=== PATIENT | female | born 1980 | race Caucasian/White ===

== ENCOUNTER 2018-02-18 08:15 | Outpatient (RCR) | payer OTHER, MEDICAID, SELFPAY ==
--- NOTE | 2018-01-21 17:53 | PT.OIE ---
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 positive (Chronic 02/2017) Past Surgical History (Last Updated 12/09/17 @ 13:32 by Graciela Demarco LPN) Hx of cervical biopsy (Resolved 2015) Hx of tonsillectomy (Resolved ~1984) Provider Visit Care Team Role Provider Type Deb Ledesma PA-C Attending Provider Advanced Transfer Driver Family Provider Primary Care Provider Specialty: Medical Address: [address] [place] [address], [facility] Email: [email or web address] Physical Therapy Initial Evaluation PT-OP-A Visit Information Start: 01/19/18 07:10 Freq: Status: Active Protocol: Document 01/19/18 08:15 AMB (Rec: 01/19/18 09:40 AMB [email or web address]) Out-Patient Physical Therapy Visit Information Visit Information Visit Type Initial Evaluation Visit Start Time 08:15 Visit Stop Time 09:00 Total Visit Minutes 45 Visit Number 1 Evaluation Information Evaluation Date 01/19/18 PT-OP-B Current Condition Start: 01/19/18 07:10 Freq: Status: Active Protocol: Document 01/19/18 08:15 AMB (Rec: 01/19/18 08:27 AMB [id number]) Current Condition History of Current Condition History of Current Condition The patient reports she was lifting railroad ties and while she didn't feel pain while lifting, she sat down afterwards and developed posterior right low back/hip radiating pain into the leg. History of R knee pain. Walking downhill is the worst, standing irritates it. Lying down helps. 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 Prior Treatments and Tests PCP exercises seems to help. 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 PT-OP-C Subjective Start: 01/19/18 07:10 Freq: Status: Active Protocol: Document 01/19/18 08:15 AMB (Rec: 01/19/18 09:40 AMB [email or web address]) OP-PT Subjective Patient Comments Patient Comments Worst with walking, standing, shoveling Patient Reported Progress Worse Patient Questionnaires Lower Extremity Functional Scale LEFS Score 59 LEFS Impairment 20 to 39% Impaired (Score 48- 62) OP-PT Pain Assessment Pain Assessment Grid Paper Pain Assessment Grid Completed Yes Location Right Hip Pain Location Details posterior lumbar/SI going down leg Intensity 8 Scale Used Numeric (1 - 10) Description Sharp PT-OP-J Posture/Palpation/Skin Start: 01/19/18 07:10 Freq: Status: Active Protocol: Document 01/19/18 08:15 AMB (Rec: 01/20/18 11:17 AMB [email or web address]) Posture Evaluation Comments Posture Comments Supine: L ASIS appears high. Standing: pt stands with excessive lumbar lordosis. Palpation Assessment Location One Palpation Location R posterior hip Palpation Findings Soft Tissue Tightness Muscle Guarding Tenderness Palpation Details Tightness throughout R piriformis, R lumbar paraspinals PT-OP-K Range of Motion Start: 01/19/18 07:10 Freq: Status: Active Protocol: Document 01/19/18 08:15 AMB (Rec: 01/20/18 11:22 AMB [id number]) Lumbar Spine Range of Motion Lumbar Spine Active Percentage Testing Position standing Flexion 80 Extension 75 Lateral Flexion Left 75 Lateral Flexion Right 75 Comments pain with forward flexion PT-OP-L Special Tests Start: 01/19/18 07:10 Freq: Status: Active Protocol: Document 01/19/18 08:15 AMB (Rec: 01/20/18 11:15 AMB [email or web address]) Special Tests Lumbar Spine Special Tests Compression Test Results negative Manual Traction Test Results decreases pain Stork Test Test Results decreased motion, but no increase in pain Slump Test Results positive for increased pain PT-OP-M Strength Start: 01/19/18 07:10 Freq: Status: Active Protocol: Document 01/19/18 08:15 AMB (Rec: 01/21/18 15:39 AMB [id number]) Hip Strength Hip Manual Muscle Testing Right Flexion (L2) 4+ Good+ Extension (S1) 5 Normal Abduction 4+ Good+ External Rotation 4- Good- Left Flexion (L2) 4+ Good+ Extension (S1) 5 Normal Abduction 5 Normal External Rotation 4+ Good+ PT-OP-Q Treatments Start: 01/19/18 07:10 Freq: Status: Active Protocol: Document 01/19/18 08:15 AMB (Rec: 01/20/18 10:46 AMB [id number]) Therapeutic Exercises Supine Exercises 3 Supine Exercise Name isometric hip flexion at 90 hip flex Reps/Minutes 5x5 2 Supine Exercise Name active hamstring stretch Reps/Minutes 5x10 1 Supine Exercise Name piriformis stretch Reps/Minutes 30x2 Prone Exercises 1 Prone Exercise Name quadruped 4 way hip stretch Reps/Minutes 30x2 PT-OP-T Assessment and Plan Start: 01/19/18 07:10 Freq: Status: Active Protocol: Document 01/19/18 08:15 AMB (Rec: 01/21/18 07:30 AMB [email or web address]) Physical Therapy Assessment Rehab Potential Rehabilitation Potential Good Evaluation Complexity Number of Personal Factors/Comorbidities 1-2 Number of Body Systems Impaired 4 or More Clinical Presentation at Evaluation Evolving Impairments Impairments Functional Activities Pain ROM Strength Goals Three Impairment Strength Short Term Goal (STG) The patient will show 5/5 strength throughout her LEs. STG Duration 5 weeks Work Ticket Distributor Goal (LTG) The patient will be independent with a home exercise program. 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 STG Duration 5 weeks Work Ticket Distributor Goal (LTG) The patient will walk/hike for 1 hour with pain of 4/10 or less. LTG Duration 10 weeks One Impairment Lifting/ yardwork Short Term Goal (STG) The patient will perform a squat with good body mechanics to lift 20 pounds from the ground to waist height without an increase in baseline pain. STG Duration 5 weeks Detention Goal (LTG) The patient will shovel for 30 minutes without an increase in baseline pain with good body mechanics. LTG Duration 10 weeks Assessment Summary Assessment The patient presents to physical therapy with right posterior hip pain that radiates down her posterior leg after lifting rail road ties. She presents with tightness and weakness in her right hip external rotators dysfunction at SI joint and low lumbar R>L. She will benefit from PT to establish a pain relief program that she can be independent with, per her request. 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
--- NOTE | 2018-01-21 17:53 | PT.OPPOC ---
Current Diagnoses Sacroiliitis, not elsewhere classified (01/19/18) Lumbago with sciatica, right side (01/19/18) Provider Visit Care Team Role Provider Type Deb Ledesma PA-C Attending Provider Advanced Paper Products Supervisor Family Provider Primary Care Provider Specialty: Medical Address: [address] [place] [address], [id number] Email: [email or web address] Plan Of Care PT-OP-T Assessment and Plan Start: 01/19/18 07:10 Freq: Status: Active Protocol: Document 01/19/18 08:15 AMB (Rec: 01/21/18 07:30 AMB [email or web address]) Physical Therapy Assessment Rehab Potential Rehabilitation Potential Good Evaluation Complexity Number of Personal Factors/Comorbidities 1-2 Number of Body Systems Impaired 4 or More Clinical Presentation at Evaluation Evolving Impairments Impairments Functional Activities Pain ROM Strength Goals Three Impairment Strength Short Term Goal (STG) The patient will show 5/5 strength throughout her LEs. STG Duration 5 weeks Loss Prevention Representative Goal (LTG) The patient will be independent with a home exercise program. 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 STG Duration 5 weeks Loss Prevention Representative Goal (LTG) The patient will walk/hike for 1 hour with pain of 4/10 or less. LTG Duration 10 weeks One Impairment Lifting/ yardwork Short Term Goal (STG) The patient will perform a squat with good body mechanics to lift 20 pounds from the ground to waist height without an increase in baseline pain. STG Duration 5 weeks Detention Goal (LTG) The patient will shovel for 30 minutes without an increase in baseline pain with good body mechanics. LTG Duration 10 weeks Assessment Summary Assessment The patient presents to physical therapy with right posterior hip pain that radiates down her posterior leg after lifting rail road ties. She presents with tightness and weakness in her right hip external rotators dysfunction at SI joint and low lumbar R>L. She will benefit from PT to establish a pain relief program that she can be independent with, per her request. 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 Physician Signature Date Printed Name and Credentials Clinical Instructor Signature Printed Name and Credentials
--- NOTE | 2018-02-18 11:46 | PT.OTN ---
Current Diagnoses Sacroiliitis, not elsewhere classified (02/18/18) Physical Therapy Treatment Note PT-OP-A Visit Information Start: 01/19/18 07:10 Freq: Status: Active Protocol: Document 02/18/18 08:15 AMB (Rec: 02/18/18 09:00 AMB [email or web address]) Out-Patient Physical Therapy Visit Information Visit Information Visit Type Treatment Note Visit Start Time 08:15 Visit Stop Time 09:00 Total Visit Minutes 45 Visit Number 2 Evaluation Information Evaluation Date 01/19/18 PT-OP-B Current Condition Start: 01/19/18 07:10 Freq: Status: Active Protocol: Document 01/19/18 08:15 AMB (Rec: 01/19/18 08:27 AMB [id number]) Current Condition History of Current Condition History of Current Condition The patient reports she was lifting railroad ties and while she didn't feel pain while lifting, she sat down afterwards and developed posterior right low back/hip radiating pain into the leg. History of R knee pain. Walking downhill is the worst, standing irritates it. Lying down helps. 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 Prior Treatments and Tests PCP exercises seems to help. 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 Standing: pt stands with excessive lumbar lordosis. Palpation Assessment Location One Palpation Location R posterior hip Palpation Findings Soft Tissue Tightness Muscle Guarding Tenderness Palpation Details Tightness throughout R piriformis, R lumbar paraspinals PT-OP-K Range of Motion Start: 01/19/18 07:10 Freq: Status: Active Protocol: Document 01/19/18 08:15 AMB (Rec: 01/20/18 11:22 AMB [id number]) Lumbar Spine Range of Motion Lumbar Spine Active Percentage Testing Position standing Flexion 80 Extension 75 Lateral Flexion Left 75 Lateral Flexion Right 75 Comments pain with forward flexion PT-OP-L Special Tests Start: 01/19/18 07:10 Freq: Status: Active Protocol: Document 01/19/18 08:15 AMB (Rec: 01/20/18 11:15 AMB [email or web address]) Special Tests Lumbar Spine Special Tests Compression Test Results negative Manual Traction Test Results decreases pain Stork Test Test Results decreased motion, but no increase in pain Slump Test Results positive for increased pain PT-OP-M Strength Start: 01/19/18 07:10 Freq: Status: Active Protocol: Document 01/19/18 08:15 AMB (Rec: 01/21/18 15:39 AMB [id number]) Hip Strength Hip Manual Muscle Testing Right Flexion (L2) 4+ Good+ Extension (S1) 5 Normal Abduction 4+ Good+ External Rotation 4- Good- Left Flexion (L2) 4+ Good+ Extension (S1) 5 Normal Abduction 5 Normal External Rotation 4+ Good+ PT-OP-Q Treatments Start: 01/19/18 07:10 Freq: Status: Active Protocol: Document 02/18/18 08:15 AMB (Rec: 02/18/18 11:28 AMB [email or web address]) Therapeutic Exercises Supine Exercises 2 Supine Exercise Name active hamstring stretch Reps/Minutes 5x10 1 Supine Exercise Name piriformis stretch Reps/Minutes 30x2 Sidelying Exercises 2 Sidelying Exercise Name hip abd Reps/Minutes 1x10 1 Sidelying Exercise Name clam Reps/Minutes 2x10 Sitting Exercises 1 Sitting Exercise Name sitting march Reps/Minutes 10 Comments vc for trunk stability Standing Exercises 1 Standing Exercise Name calf stretch Reps/Minutes 30x2 Therapeutic Activity Therapeutic Activity 1 Name squat technique vs bending to pull weeds Comments avoiding bend lift twist PT-OP-T Assessment and Plan Start: 01/19/18 07:10 Freq: Status: Active Protocol: Document 02/18/18 08:15 AMB (Rec: 02/18/18 11:46 AMB [email or web address]) Physical Therapy Assessment Assessment Summary Assessment Pt tolerating more activity, but continues to have radiating leg pain down the right leg. Encouraged her in core stability, avoiding activities that cause nerve pain. Physical Therapy Plan Next Visit Focus/Plan Next Note Type Treatment Note Next Visit Plan Pt having a difficult time coming to PT due to work schedule, so scheduled out for 3 weeks. Progress HEP at that time
--- NOTE | 2018-04-08 10:48 | PT.OPDS ---
Current Diagnoses Sacroiliitis, not elsewhere classified (02/18/18) Provider Visit Care Team Role Provider Type Deb Ledesma PA-C Attending Provider Advanced Furniture Assembly Supervisor Family Provider Primary Care Provider Specialty: Medical Address: [address] [place] [address], [id number] Email: [email or web address] Visit Number Visit Number 2 Discharge Summary PT-OP-B Current Condition Start: 01/19/18 07:10 Freq: Status: Active Protocol: Document 01/19/18 08:15 AMB (Rec: 01/19/18 08:27 AMB [id number]) Current Condition History of Current Condition History of Current Condition The patient reports she was lifting railroad ties and while she didn't feel pain while lifting, she sat down afterwards and developed posterior right low back/hip radiating pain into the leg. History of R knee pain. Walking downhill is the worst, standing irritates it. Lying down helps. 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 Prior Treatments and Tests PCP exercises seems to help. 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 Standing: pt stands with excessive lumbar lordosis. Palpation Assessment Location One Palpation Location R posterior hip Palpation Findings Soft Tissue Tightness Muscle Guarding Tenderness Palpation Details Tightness throughout R piriformis, R lumbar paraspinals PT-OP-T Assessment and Plan Start: 01/19/18 07:10 Freq: Status: Active Protocol: Document 04/08/18 10:46 AMB (Rec: 04/08/18 10:48 AMB [email or web address]) Physical Therapy Plan Discharge Physical Therapy Discharge Reasons No Longer Attending PT Discharge Comments The patient attended 2 visits including initial evaluation, she cancelled 2 appointments, and no showed 2. She has not returned a voicemail to schedule more appointments. At her last visit she was improving, but was having difficulty attending due to her work schedule. She is now discharged due to poor attendance and would need a new referral to return.
== END 2018-02-19 11:12 ==
LOC: PHYS 08:15
PROVIDERS: Family Provider Physician Assistant; PCP Physician Assistant; Visit Provider Physician Assistant
DX: M46.1 Sacroiliitis, not elsewhere classified (principal)
CPT/HCPCS: 97110; 97162; 97530

== ENCOUNTER → 2018-07-30 11:23 | Outpatient (CLI) | payer OTHER, MEDICAID, SELFPAY ==
--- NOTE | 2018-07-30 11:25 | DI.RAD.S_ITS ---
PROCEDURE: XR KNEE LT 3V INDICATIONS: Left knee pain; do one weight bearing view TECHNIQUE: 3 views of the knee were acquired. COMPARISON: [facility], , KNEE 3V RIGHT, 04/23/2017, 9:01. [facility], , KNEE 3V LEFT, 04/12/2015, 9:43. FINDINGS: Bones: No fractures or dislocations. No suspicious bony lesions. Soft tissues: No joint effusion. No suspicious soft tissue calcifications. IMPRESSION: Normal for age. Dictated by: Gianni Kang M.D. on 07/30/2018 at 12:19 Approved by: Gianni Kang M.D. on 07/30/2018 at 12:20
[2018-07-30 12:23] LABS: Add Manual Diff / Slide Review NO; Basophils Absolute Auto 0 /uL (0-100); Basophils Percent Auto 0.4 % (0-2); Eosinophils Absolute Auto 0 /uL (0-450); Eosinophils Percent Auto 0.6 % (2-4); Hematocrit 41.4 % (36-46); Hemoglobin 13.8 g/dL (12.0-16.0); Lymphocytes Absolute Auto 2500 /uL (1100-4500); Lymphocytes Percent Auto 35.9 % (25-40); Mean Corpuscular HGB Conc 33.4 % (30-36); Mean Corpuscular Hemoglobin 31.7 PG (26-34); Monocytes Absolute Auto 700 /uL (0-900); Monocytes Percent Auto 9.9 % (3-14); Neutrophils Absolute Auto 3600 /uL (1500-7000); Neutrophils Percent Auto 53.2 % (50-75); Platelet Count 179 X10^3/uL (150-400); Red Blood Cell Count 4.36 X10^6/uL (4.0-5.2); Red Cell Distribution Width 13.4 % (11.6-14.8); White Blood Cell Count 6.9 X10^3/uL (4.5-11.0)
[2018-07-30 12:38] LABS: Erythrocyte Sedimentation Rate 7 MM/HR (0-20)
[2018-07-30 12:45] LABS: HEMOLYSIS < 15 (0-50); Iron 103 ug/dL (37-170)
[2018-07-30 12:47] LABS: Alanine Aminotransferase 43 IU/L (9-52); Albumin 4.2 g/dL (3.5-5.0); Albumin Globulin Ratio 1.6 (1.0-2.8); Alkaline Phosphatase 59 U/L (38-126); Aspartate Aminotransferase 32 IU/L (14-36); BUN Creatinine Ratio 21.7 (6-22); Bilirubin Total 0.4 mg/dL (0.2-1.3); Blood Urea Nitrogen 13 mg/dL (7-17); Carbon Dioxide 26 mmol/L (22-32); Chloride 103 mmol/L (98-107); Estimated Glomerular Filt Rate > 60.0 mL/min (>60); Globulin 2.6 g/dL (1.7-4.1); Glucose 91 mg/dL (70-100); HEMOLYSIS < 15 (0-50); Potassium 4.3 mmol/L (3.4-5.1); Sodium 138 mmol/L (137-145); Total Protein 6.8 g/dL (6.3-8.2); Uric Acid 3.1 mg/dL (2.5-6.2)
[2018-07-30 12:51] LABS: Rheumatoid Factor < 8.6 IU/mL (<12.0)
[2018-07-30 12:56] LABS: Percent Iron Saturation 27 % (15-50); Total Iron Binding Capacity 380 ug/dL (265-497); Transferrin 296 mg/dL (206-381)
[2018-07-30 13:20] LABS: Ferritin 22.6 ng/mL (6.27-137)
[2018-08-01 11:41] LABS: CCP Antibody (IgG) 153 Units (< 20)
[2018-08-02 22:08] LABS: ANA Screen POSITIVE (Negative); DNA Antibody Crithidia IFA NEGATIVE (Negative); Rheumatoid Factor <14 IU/mL; Sjogren Antiboday SS-A <1.0 NEG AI (<1.0 NEGATIVE); Sjogren Antiboday SS-B <1.0 NEG AI (<1.0 NEGATIVE); Sm Antibody <1.0 NEG AI (<1.0 NEGATIVE); Sm/RNP Antibody 1.8 POS AI (<1.0 NEGATIVE)
== END ==
PROVIDERS: Family Provider Physician Assistant; PCP Physician Assistant; Visit Provider Physician Assistant
DX: M25.562 Pain in left knee (principal); R53.83 Other fatigue; M25.50 Pain in unspecified joint; R76.8 Other specified abnormal immunological findings in serum; Z74.8 Other problems related to care provider dependency; Z82.61 Family history of arthritis
CPT/HCPCS: 36415; 73562; 80053; 82728; 83516; 83540; 83550; 84550; 85025; 85651; 86038; 86430

== ENCOUNTER 2018-12-16 09:51 | Emergency (ER) | payer OTHER, MEDICAID, SELFPAY ==
[2018-12-16 10:00] VITALS: BP 111/70; PULSE 55; RESP 16; TEMP 37; O2SAT 100; BMI 23.3
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
[2018-12-16] MEDS: KETOROLAC 60 MG/2 ML VIAL 30 MG IM (10:38)
[2018-12-16 11:18] VITALS: BP 120/78; PULSE 54; RESP 16; TEMP 36.9; O2SAT 100
== END 2018-12-16 11:15 | disposition home or self-care (01) ==
PROVIDERS: Emergency Provider Emergency Medicine; Family Provider Physician Assistant; PCP Physician Assistant
DX: M54.5 Low back pain (principal); M53.86 Other specified dorsopathies, lumbar region
CPT/HCPCS: 81003; 96372; 99282; 99283; J1885

== ENCOUNTER → 2018-12-22 06:41 | Outpatient (CLI) | payer OTHER, MEDICAID, SELFPAY ==
--- NOTE | 2018-12-22 06:42 | DI.MRI.S_ITS ---
PROCEDURE: MR LUMBAR SPINE WO CON INDICATIONS: Chronic pain LS spine; recurrent sciatica right side TECHNIQUE: Noncontrast sagittal T1 spin echo and T2 fast echo, sagittal STIR, axial T1 and T2 fast spin echo through the lumbar spine. In cases with scoliosis, additional coronal T2 fast spin echo may be performed. COMPARISON: None. FINDINGS: Image quality: Excellent. Alignment and Curvature: There is normal bony alignmen straightening of normal lumbar lordosis. The Bone Marrow: Marrow is of normal overall signal. No acute vertebral body compression fractures. Spinal Cord: Conus medullaris terminates at the L1 level. Visualized cord demonstrates normal signal and size. Paraspinous Soft Tissues: No paravertebral masses. L1-L2: Normal appearance. L2-L3: Normal appearance. L3-L4: Diffuse disc bulge and bilateral facet arthrosis with hypertrophy of ligamentum flavum is seen causing mild central canal stenosis and ltma-nb-fzqwhxev bilateral neuroforaminal narrowing. Bulging disc likely contacting bilateral exiting L3 nerve roots. L4-L5: Disc desiccation signal is seen. There is broad-based disc bulge and bilateral facet arthrosis with hypertrophy of ligamentum flavum causing moderate central canal stenosis and bilateral neuroforaminal narrowing. Bulging disc is seen contacting bilateral exiting L4 nerve roots. L5-S1: Desiccation signals are seen. A broad-based disc bulge and bilateral facet arthrosis is seen with mild central canal stenosis and right worse than left bilateral neuroforaminal narrowing. IMPRESSION: 1. No marrow edema. No compression fracture or spondylolisthesis. 2. Degenerative disc bulge and bilateral facet arthrosis at L3-4 through L5-S1 levels causing mild to moderate central canal stenosis and bilateral neuroforaminal narrowing most prominent at L4-5 level as described above. Dictated by: Adam Yu M.D. on 12/22/2018 at 9:15 Approved by: Adam Yu M.D. on 12/22/2018 at 9:22
== END ==
PROVIDERS: Family Provider Physician Assistant; PCP Physician Assistant; Visit Provider Physician Assistant
DX: M51.16 Intervertebral disc disorders with radiculopathy, lumbar region (principal); M51.17 Intervertebral disc disorders with radiculopathy, lumbosacral region; M48.061 Spinal stenosis, lumbar region without neurogenic claudication; M48.07 Spinal stenosis, lumbosacral region; M47.26 Other spondylosis with radiculopathy, lumbar region; M47.27 Other spondylosis with radiculopathy, lumbosacral region; G89.29 Other chronic pain
CPT/HCPCS: 72148

== ENCOUNTER → 2019-05-28 11:00 | Outpatient (CLI) | payer OTHER, MEDICAID, SELFPAY ==
[2019-05-28 12:42] LABS: Hematocrit 40.5 % (36-46); Hemoglobin 13.6 g/dL (12.0-16.0); Mean Corpuscular HGB Conc 33.7 % (30-36); Mean Corpuscular Hemoglobin 32.9 PG (26-34); Mean Corpuscular Volume 97.7 fL (80-100); Platelet Count 204 X10^3/uL (150-400); Red Blood Cell Count 4.14 X10^6/uL (4.0-5.2); Red Cell Distribution Width 13.6 % (11.6-14.8); White Blood Cell Count 6.8 X10^3/uL (4.5-11.0)
[2019-05-28 13:09] LABS: Alanine Aminotransferase 317 IU/L (<35); Albumin 4.3 g/dL (3.5-5.0); Albumin Globulin Ratio 1.7 (1.0-2.8); Alkaline Phosphatase 67 U/L (38-126); Aspartate Aminotransferase 126 IU/L (14-36); BUN Creatinine Ratio 18.6 (6-22); Bilirubin Total 0.6 mg/dL (0.2-1.3); Blood Urea Nitrogen 13 mg/dL (7-17); Calcium 9.6 mg/dL (8.4-10.2); Carbon Dioxide 28 mmol/L (22-32); Chloride 105 mmol/L (98-107); Estimated Glomerular Filt Rate > 60.0 mL/min (>60); Globulin 2.5 g/dL (1.7-4.1); Glucose 82 mg/dL (70-100); HEMOLYSIS < 15 (0-50); Potassium 4.3 mmol/L (3.4-5.1); Sodium 139 mmol/L (137-145); Total Protein 6.8 g/dL (6.3-8.2)
== END ==
PROVIDERS: Family Provider Physician Assistant; PCP Physician Assistant; Visit Provider Nurse Practitioner Family
DX: S09.90XA Unspecified injury of head, initial encounter (principal)
CPT/HCPCS: 36415; 80053; 85027

== ENCOUNTER → 2019-06-09 07:22 | Outpatient (CLI) | payer OTHER, MEDICAID, SELFPAY ==
--- NOTE | 2019-06-09 07:23 | DI.MRI.S_ITS ---
PROCEDURE: MR HEAD/BRAIN WO CON INDICATIONS: head injury, symptoms improved and then worsened TECHNIQUE: Noncontrast axial T1 spin echo, axial T2 fast spin echo, sagittal and axial FLAIR, coronal T2 fast spin echo, axial gradient echo, axial diffusion and ADC through the brain. COMPARISON: None. FINDINGS: Image quality: Excellent. CSF Spaces: Basal cisterns are patent. No extra-axial fluid collections. Ventricles are normal in size and shape. Brain: No intracranial masses or hemorrhage. Nicholas/white matter interface is normal. Brainstem appears normal. Diffusion-weighted images demonstrate no acute ischemic insult. No chronic ischemic insults. Normal intravascular flow voids are present. Skull and face: Calvarium has normal marrow signal. Orbits appear normal. Sinuses: Sinuses and mastoids are clear. IMPRESSION: Normal MRI exam. Dictated by: Arnaldo Monaco M.D. on 06/09/2019 at 9:45 Approved by: Arnaldo Monaco M.D. on 06/09/2019 at 9:50
== END ==
PROVIDERS: PCP Physician Assistant; Visit Provider Nurse Practitioner Family
DX: S09.90XA Unspecified injury of head, initial encounter (principal); X58.XXXA Exposure to other specified factors, initial encounter
CPT/HCPCS: 70551

== ENCOUNTER → 2019-06-14 09:04 | Outpatient (CLI) | payer OTHER, MEDICAID, SELFPAY ==
[2019-06-14 09:50] LABS: Creatine Kinase 43 U/L (30-135)
[2019-06-14 10:13] LABS: Gamma Glutamyl Transpeptidase 38 U/L (12-43)
[2019-06-14 10:45] LABS: Hepatitis B Surface Antigen NEGATIVE s/c (NEGATIVE)
[2019-06-14 11:03] LABS: Hep C Virus Ab w/Reflex Quant NEGATIVE s/c (NEGATIVE)
[2019-06-16 13:24] LABS: Ceruloplasmin 27 mg/dL (18-53)
[2019-06-16 13:37] LABS: Hepatitis B Core Antibody Nonreactive (Nonreactive)
== END ==
PROVIDERS: PCP Physician Assistant; Visit Provider Physician Assistant
DX: M25.50 Pain in unspecified joint (principal); R74.8 Abnormal levels of other serum enzymes
CPT/HCPCS: 36415; 82390; 82550; 82977; 86704; 86803; 87340; 87902

== ENCOUNTER → 2019-06-25 07:40 | Outpatient (CLI) | payer OTHER, MEDICAID, SELFPAY ==
--- NOTE | 2019-06-25 07:42 | DI.US.S_ITS ---
PROCEDURE: US ABDOMEN COMPLETE INDICATIONS: ELEVATED ALKALINE PHOSPHATE, AST TECHNIQUE: Real-time scanning was performed of the abdominal and retroperitoneal organs, with image documentation. COMPARISON: [facility], US, ABDOMEN COMPLETE, 11/29/2014, 8:58. FINDINGS: Liver: Liver is normal in size and homogeneous in echotexture, diffusely prominently hyperechoic consistent with fatty infiltration normal hepatic vascularity.. Gallbladder: The gallbladder appears normal. Biliary ducts: Intrahepatic bile ducts are non-dilated. Extrahepatic bile duct caliber measures 5.9 mm. Normal is 6-7 mm or less in diameter, or 10 mm or less post-cholecystectomy. Pancreas: Visualized portions of the pancreas are sonographically normal. Spleen: Spleen is normal in size and homogeneous in echotexture. Kidneys: Kidneys are normal in size and echotexture. Right kidney measures 11.4 cm long; left kidney measures 10.1 cm long. No hydronephrosis or nephrolithiasis. No solid masses. Aorta: Visualized aorta is normal in caliber at less than 3 cm. Iliacs: Proximal common iliac arteries are normal in caliber at less than 2.5 cm. IVC: Intrahepatic inferior vena cava is patent. Miscellaneous: No free abdominal fluid. IMPRESSION: Prominently fatty infiltrated liver, otherwise normal examination. Dictated by: Gianni Kang M.D. on 06/25/2019 at 11:03 Approved by: Gianni Kang M.D. on 06/25/2019 at 11:05
== END ==
PROVIDERS: PCP Physician Assistant; Visit Provider Physician Assistant
DX: R74.8 Abnormal levels of other serum enzymes (principal); K76.0 Fatty (change of) liver, not elsewhere classified
CPT/HCPCS: 76700

== ENCOUNTER → 2019-08-26 08:32 | Outpatient (CLI) | payer OTHER, MEDICAID, SELFPAY ==
[2019-08-26 10:02] LABS: HEMOLYSIS < 15 (0-50); Iron 141 ug/dL (37-170)
[2019-08-26 10:13] LABS: Percent Iron Saturation 36 % (15-50); Total Iron Binding Capacity 388 ug/dL (265-497); Transferrin 336 mg/dL (206-381)
[2019-08-26 10:38] LABS: Ferritin 131 ng/mL (6-137)
[2019-08-27 13:56] LABS: Alpha 1 Anti Trypsin 137 mg/dL (83-199)
[2019-08-28 13:08] LABS: Anti Mitochondrial ABY IGG 31.5 Units (< 20.1)
[2019-08-28 14:34] LABS: Hepatitis A Antibody Total Nonreactive (Nonreactive)
== END ==
PROVIDERS: Internal Medicine Gastroenterology; PCP Physician Assistant; Referring Provider Physician Assistant; Visit Provider Physician Assistant
DX: R74.0 Nonspecific elevation of levels of transaminase and lactic acid dehydrogenase [LDH] (principal)
CPT/HCPCS: 36415; 82103; 82728; 83516; 83540; 83550; 86255; 86708

== ENCOUNTER 2019-09-06 07:48 | Outpatient (CLI) | payer OTHER, MEDICAID, SELFPAY ==
[2019-09-06] VITALS (11 sets, daily range): BP systolic 100–123; BP diastolic 63–78; PULSE 50–56; RESP 14–100; TEMP 36.2–37.2; O2SAT 98–100; BMI 24.2
--- NOTE | 2019-09-06 | PATH_ITS ---
[facility] Accession Number: [id number] . 01 Material submitted: . liver - LEFT LOBE LIVER . 01 Clinical history: . FATTY (CHANGE OF) LIVER . 02 Diagnosis: Left Lobe Liver, Needle Core Biopsies: Steatosis, approximately 30%, predominantly macrovesicular. No evidence of steatohepatitis. No significant fibrosis on trichrome stain. Please see comment. MRV 09/09/2019 1350 Local . 02 Comment: Sections are of liver parenchyma with steatosis, predominantly macrovesicular. There is no significnat portal or lobular inflammation. Plasma cells are not identified. Ballooned hepatocytes are not seen. There is no significant fibrosis on a trichrome stain. There are no intrahepatocytic globules of alpha1-antitrypsin deficiency seen on a PAS stain with diastase. There is no significant iron deposition on an iron stain. All control stains show appropriate reactivity. The overall features are that of steatosis without evidence of steatohepatitis or autoimmune hepatitis. . As part of routine quality officer, Dr. Umanzor has reviewed this case and agrees with the interpretation above. . 02 Electronically signed: . Yusuf Nava MD, PhD, Pathologist NPI- [id number] . 01 Gross description: . LEFT LOBE LIVER: Received in formalin are 3 fragment(s) of barber, soft tissue measuring 0.3 x 0.1 x 0.1 cm to 0.6 x 0.1 x 0.1 cm submitted entirely in 1 cassette(s) /[facility] 09/06/20192053 Local . 02 Pathologist provided ICD-10: K76.0 . 02 CPT . 541248, 161477, 290872, 403193 Performed at: [address], [place], [place] [id number] MD Isael Bermudez MD Phone: [phone] Performed at: 02 [facility] [address] [place] [id number] MD Sadia Umanzor MD Phone: [phone]
--- NOTE | 2019-09-06 | DI.US.S_ITS ---
PROCEDURE: US BIOPSY LIVER Ultrasound-guided liver biopsy INDICATIONS: ABNORMAL LFTS TECHNIQUE: The indications, alternatives, benefits, risks, and complications of the procedure were explained to the patient. Written informed consent was obtained and placed in the chart. Continuous EKG and hemodynamic monitoring was started by trained personnel. Real-time sonography was utilized to choose the site for percutaneous hepatic biopsy. The skin was prepped and draped in the usual sterile fashion. 1% lidocaine was infiltrated down to the hepatic capsule. A coaxial needle was then advanced into the liver under direct sonographic visualization. A biopsy apparatus was then utilized, and core biopsies were obtained. The needle was then withdrawn; a bandage and overlying weight were applied to the biopsy site. COMPARISON: None. FINDINGS: Biopsy site(s): Left lobe of liver. Needle: Ecrio biopsy needle set. Number of passes: 4 Medications: 1% lidocaine for local anaesthesia. Complications: None. IMPRESSION: Successful ultrasound-guided liver biopsy, with pathology results pending. Dictated by: Adam Yu M.D. on 09/06/2019 at 11:23 Approved by: Adam Yu M.D. on 09/06/2019 at 11:24
--- NOTE | 2019-09-06 07:49 | DI.MG.S_ITS ---
BILATERAL DIGITAL SCREENING MAMMOGRAM 3D/2D WITH CAD: 09/06/2019 CLINICAL: Routine screening. Family history of breast cancer. Comparison is made to exam dated: [facility]. The tissue of both breasts is heterogeneously dense. This may lower the sensitivity of mammography. Current study was also evaluated with a Computer Aided Detection (CAD) system. There is a new fine and coarse heterogeneous calcification in the right axillary tail. This may correlate with the prior cyst aspiration site. No other significant masses, calcifications, or other findings are seen in either breast. IMPRESSION: INCOMPLETE: NEEDS ADDITIONAL IMAGING EVALUATION The new fine and coarse heterogeneous calcifications are indeterminate. Additional views with possible ultrasound are recommended. This exam was interpreted at Station ID: [id number]. NOTE: For mammograms, a report in lay terms will be sent to the patient. Approximately 15% of breast malignancies will not be visualized mammographically. In the management of a palpable breast mass, a negative mammogram must not discourage biopsy of a clinically suspicious lesion. Electronically Signed By: Cayden Vale M.D. slc/:09/06/2019 08:17:52 copy to: LORNA AMEZCUA letter sent: Additional Imaging Needed ACR BI-RADS Category 0: Incomplete 3340F
[2019-09-06 08:30] LABS: Add Manual Diff / Slide Review NO; Basophils Absolute Auto 0 /uL (0-100); Basophils Percent Auto 0.6 % (0-2); Eosinophils Absolute Auto 100 /uL (0-450); Eosinophils Percent Auto 1.8 % (2-4); Hemoglobin 14.3 g/dL (12.0-16.0); Lymphocytes Absolute Auto 2600 /uL (1100-4500); Mean Corpuscular Hemoglobin 32.2 PG (26-34); Mean Corpuscular Volume 94.6 fL (80-100); Monocytes Absolute Auto 600 /uL (0-900); Monocytes Percent Auto 9.2 % (3-14); Neutrophils Absolute Auto 2800 /uL (1500-7000); Neutrophils Percent Auto 45.4 % (50-75); Platelet Count 186 X10^3/uL (150-400); Red Blood Cell Count 4.44 X10^6/uL (4.0-5.2); Red Cell Distribution Width 13.9 % (11.6-14.8); White Blood Cell Count 6.1 X10^3/uL (4.5-11.0)
[2019-09-06 08:41] LABS: Prothrombin Time 11.5 SECONDS (10.1-12.7)
[2019-09-06 08:44] LABS: PTT Partial Thromboplastin Tim 27 SECONDS (26.4-36.2)
--- NOTE | 2019-09-06 10:38 | SUR.PHASEII ---
pt arrived back from DI via stretcher. pt laying flat in bed with sand bag over biopsy site. Bandaid on biopsy site observed to be c/d/i. pt denies any pain/discomfort at this time, vss. pt family brought to bedside. Call light given to pt and bed in lowest position.
--- NOTE | 2019-09-06 12:48 | SUR.PHASEII ---
Lab at bedside [id number]
[2019-09-06 12:58] LABS: Hematocrit 41.9 % (36-46)
--- NOTE | 2019-09-06 13:32 | SUR.PHASEII ---
Pt in stable condition, vss. pt alert and oriented. Bandaid to biopsy site observed to be c/d/i. This RN called and spoke with Dr. Shaw, reviewed lab results with him. Per Dr. Shaw ok for pt to be discharged to home at this time.
== END 2019-09-06 13:45 | disposition home or self-care (01) ==
PROVIDERS: Referring Provider Physician Assistant; Visit Provider Physician Assistant
DX: K76.0 Fatty (change of) liver, not elsewhere classified (principal); Z12.39 Encounter for other screening for malignant neoplasm of breast; R94.5 Abnormal results of liver function studies
CPT/HCPCS: 36415; 47000; 76942; 77063; 77067; 85014; 85025; 85610; 85730

== ENCOUNTER 2019-09-20 09:30 | Outpatient (RCR) | payer OTHER, MEDICAID, SELFPAY ==
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
== END 2019-09-22 08:38 ==
LOC: SP 09:30
PROVIDERS: PCP Physician Assistant; Referring Provider Psychiatry & Neurology Neurology; Visit Provider Psychiatry & Neurology Neurology
DX: F07.81 Postconcussional syndrome (principal); R47.9 Unspecified speech disturbances
CPT/HCPCS: 96125; 97129; 97130

== ENCOUNTER → 2019-09-24 06:38 | Outpatient (CLI) | payer OTHER, SELFPAY ==
--- NOTE | 2019-09-24 | DI.MRI.S_ITS ---
PROCEDURE: MR CERVICAL SPINE WO CON INDICATIONS: NECK INJURY TECHNIQUE: Noncontrast sagittal T1 spin echo and T2 fast spin echo, sagittal STIR, foraminal oblique sagittal T2 fast spin echo, and axial gradient echo or T2 fast spin echo through the cervical spine. COMPARISON: None. FINDINGS: Image quality: Excellent. Alignment and Curvature: There is loss of cervical lordosis with mild kyphotic curvature at C5-C7. Bone Marrow: Marrow demonstrates normal overall signal. Spinal Cord: Visualized spinal cord has normal size and signal. No cerebellar tonsillar herniation. Paraspinous Soft Tissues: No paravertebral masses. Prevertebral soft tissues are normal in thickness. C2-C3: Normal appearance. C3-C4: Normal appearance. C4-C5: No significant disc bulge. Mild bilateral facet arthropathy. No central canal or foraminal stenosis. C5-C6: Mild loss of disc height and disc desiccation. There is diffuse posterior disc bulge. Bilateral uncovertebral hypertrophy. The central canal is patent. Mild bilateral foraminal stenosis. C6-C7: Mild loss of disc height and disc desiccation. There is diffuse posterior disc bulge. The central canal is mildly narrowed. No foraminal stenosis. C7-T1: Normal appearance. IMPRESSION: 1. Multilevel degenerative disc disease and facet arthropathy as described. 2. Mild central canal stenosis at C6-C7. 3. Mild bilateral foraminal stenosis at C5-C6. Dictated by: Arnaldo Monaco M.D. on 09/24/2019 at 10:00 Approved by: Arnaldo Monaco M.D. on 09/24/2019 at 10:07
== END ==
PROVIDERS: Referring Provider Psychiatry & Neurology Neurology; Visit Provider Psychiatry & Neurology Neurology
DX: S19.9XXA Unspecified injury of neck, initial encounter (principal); M48.02 Spinal stenosis, cervical region; M47.812 Spondylosis without myelopathy or radiculopathy, cervical region; M50.322 Other cervical disc degeneration at C5-C6 level; X58.XXXA Exposure to other specified factors, initial encounter
CPT/HCPCS: 72141

== ENCOUNTER → 2019-09-24 06:41 | Outpatient (CLI) | payer OTHER, MEDICAID, SELFPAY ==
--- NOTE | 2019-09-24 | DI.MG.S_ITS ---
UNILATERAL RIGHT DIGITAL DIAGNOSTIC MAMMOGRAM 3D/2D WITH ADDITIONAL VIEWS: 09/24/2019 CLINICAL: Additional evaluation requested from prior study. Comparison is made to exams dated: 09/06/2019 mammogram and 03/26/2017 mammogram - [facility]. The tissue of right breast is heterogeneously dense. This may lower the sensitivity of mammography. There are grouped punctate calcifications in the right breast at 11 o'clock posterior depth. No other significant masses or calcifications are seen in the breast. IMPRESSION: PROBABLY BENIGN The grouped punctate calcifications in the right breast are probably benign. A follow-up mammogram in 6 months is recommended. A follow-up mammogram in 6 months is recommended to demonstrate stability. This exam was interpreted at Station ID: [id number]. NOTE: For mammograms, a report in lay terms will be sent to the patient. Approximately 15% of breast malignancies will not be visualized mammographically. In the management of a palpable breast mass, a negative mammogram must not discourage biopsy of a clinically suspicious lesion. Electronically Signed By: Isael rodriguez/:09/24/2019 08:37:17 copy to: LORNA AMEZCUA letter sent: Followup Recommended ACR BI-RADS Category 3: Probably benign [id number]
== END ==
PROVIDERS: PCP Physician Assistant; Referring Provider Physician Assistant; Visit Provider Physician Assistant
DX: R92.8 Other abnormal and inconclusive findings on diagnostic imaging of breast (principal); R92.1 Mammographic calcification found on diagnostic imaging of breast
CPT/HCPCS: 77065; G0279

== ENCOUNTER → 2020-04-04 12:05 | Outpatient (CLI) | payer OTHER, MEDICAID, SELFPAY ==
[2020-04-04 12:42] LABS: Add Manual Diff / Slide Review NO; Basophils Absolute Auto 100 /uL (0-100); Basophils Percent Auto 0.8 % (0-2); Eosinophils Absolute Auto 100 /uL (0-450); Eosinophils Percent Auto 1.4 % (2-4); Hematocrit 40.4 % (36-46); Hemoglobin 13.4 g/dL (12.0-16.0); Lymphocytes Absolute Auto 2300 /uL (1100-4500); Lymphocytes Percent Auto 34.8 % (25-40); Mean Corpuscular HGB Conc 33.2 % (30-36); Mean Corpuscular Volume 99.4 fL (80-100); Monocytes Absolute Auto 700 /uL (0-900); Neutrophils Absolute Auto 3500 /uL (1500-7000); Platelet Count 208 X10^3/uL (150-400); Red Blood Cell Count 4.06 X10^6/uL (4.0-5.2); Red Cell Distribution Width 13.7 % (11.6-14.8); White Blood Cell Count 6.7 X10^3/uL (4.5-11.0)
[2020-04-04 13:17] LABS: Alanine Aminotransferase 701 IU/L (<35); Albumin 4.2 g/dL (3.5-5.0); Albumin Globulin Ratio 1.6 (1.0-2.8); Alkaline Phosphatase 116 U/L (38-126); Aspartate Aminotransferase 346 IU/L (14-36); BUN Creatinine Ratio 16.7 (6-22); Bilirubin Total 0.5 mg/dL (0.2-1.3); Blood Urea Nitrogen 10 mg/dL (7-17); Calcium 9.2 mg/dL (8.4-10.2); Carbon Dioxide 29 mmol/L (22-32); Chloride 104 mmol/L (98-107); Cholesterol 192 mg/dL (140-199); Estimated Glomerular Filt Rate > 60.0 mL/min (>60); Globulin 2.7 g/dL (1.7-4.1); Glucose 93 mg/dL (70-100); HDL Cholesterol 40 mg/dL (40-60); HEMOLYSIS < 15 (0-50); LDL Cholesterol Calculated 125 mg/dL (<100); Lipase 163 U/L (23-300); Potassium 4.3 mmol/L (3.4-5.1); Sodium 138 mmol/L (137-145); Total Protein 6.9 g/dL (6.3-8.2); Triglycerides 135 mg/dL (35-150)
[2020-04-04 13:47] LABS: TSH w/ Reflex to FT4 1.33 uIU/mL (0.47-4.68)
== END ==
PROVIDERS: PCP Registered Nurse Diabetes Educator; Referring Provider Registered Nurse Diabetes Educator; Visit Provider Registered Nurse Diabetes Educator
DX: Z00.00 Encounter for general adult medical examination without abnormal findings (principal); K76.0 Fatty (change of) liver, not elsewhere classified; R10.13 Epigastric pain; R11.0 Nausea; R74.8 Abnormal levels of other serum enzymes
CPT/HCPCS: 36415; 80053; 80061; 83690; 84443; 85025

== ENCOUNTER → 2020-04-06 10:05 | Outpatient (CLI) | payer OTHER, MEDICAID, SELFPAY ==
[2020-04-08 19:01] LABS: H. Pylori Antigen Stool Negative (Negative)
== END ==
PROVIDERS: PCP Registered Nurse Diabetes Educator; Referring Provider Registered Nurse Diabetes Educator; Visit Provider Registered Nurse Diabetes Educator
DX: R11.0 Nausea (principal); R74.8 Abnormal levels of other serum enzymes
CPT/HCPCS: 87338

== ENCOUNTER → 2020-04-11 09:18 | Outpatient (CLI) | payer OTHER, MEDICAID, SELFPAY ==
[2020-04-11 10:22] LABS: Alanine Aminotransferase 508 IU/L (<35); Albumin Globulin Ratio 1.7 (1.0-2.8); Alkaline Phosphatase 97 U/L (38-126); Aspartate Aminotransferase 273 IU/L (14-36); Bilirubin Total 0.6 mg/dL (0.2-1.3); Bilirubin Unconjugated 0.5 mg/dL (0.0-1.1); Globulin 2.4 g/dL (1.7-4.1); HEMOLYSIS < 15 (0-50); Total Protein 6.4 g/dL (6.3-8.2)
== END ==
PROVIDERS: PCP Registered Nurse Diabetes Educator; Referring Provider Registered Nurse Diabetes Educator; Visit Provider Registered Nurse Diabetes Educator
DX: R74.8 Abnormal levels of other serum enzymes (principal)
CPT/HCPCS: 36415; 80076

== ENCOUNTER → 2020-05-04 07:02 | Outpatient (CLI) | payer OTHER, MEDICAID, SELFPAY ==
[2020-05-04 09:12] LABS: Alanine Aminotransferase 219 IU/L (<35); Albumin 4.6 g/dL (3.5-5.0); Albumin Globulin Ratio 1.7 (1.0-2.8); Alkaline Phosphatase 73 U/L (38-126); Aspartate Aminotransferase 185 IU/L (14-36); Bilirubin Total 1.3 mg/dL (0.2-1.3); Bilirubin Unconjugated 1.1 mg/dL (0.0-1.1); Globulin 2.7 g/dL (1.7-4.1); HEMOLYSIS < 15 (0-50); Total Protein 7.3 g/dL (6.3-8.2)
== END ==
PROVIDERS: PCP Registered Nurse Diabetes Educator; Referring Provider Internal Medicine Gastroenterology; Visit Provider Internal Medicine Gastroenterology
DX: K76.0 Fatty (change of) liver, not elsewhere classified (principal)
CPT/HCPCS: 36415; 80076

== ENCOUNTER → 2020-05-11 09:23 | Outpatient (CLI) | payer OTHER, MEDICAID, SELFPAY ==
[2020-05-11 10:48] LABS: Alanine Aminotransferase 353 IU/L (<35); Albumin 4.8 g/dL (3.5-5.0); Albumin Globulin Ratio 1.6 (1.0-2.8); Alkaline Phosphatase 87 U/L (38-126); Aspartate Aminotransferase 322 IU/L (14-36); Bilirubin Total 0.6 mg/dL (0.2-1.3); Bilirubin Unconjugated 0.4 mg/dL (0.0-1.1); HEMOLYSIS < 15 (0-50); Total Protein 7.8 g/dL (6.3-8.2)
== END ==
PROVIDERS: PCP Registered Nurse Diabetes Educator; Referring Provider Internal Medicine Gastroenterology; Visit Provider Internal Medicine Gastroenterology
DX: K76.0 Fatty (change of) liver, not elsewhere classified (principal); R74.01 Elevation of levels of liver transaminase levels
CPT/HCPCS: 36415; 80076

== ENCOUNTER → 2020-05-19 08:11 | Outpatient (CLI) | payer OTHER, MEDICAID, SELFPAY ==
[2020-05-19 09:31] LABS: Albumin 4.2 g/dL (3.5-5.0); Albumin Globulin Ratio 1.6 (1.0-2.8); Alkaline Phosphatase 116 U/L (38-126); Aspartate Aminotransferase 608 IU/L (14-36); Bilirubin Total 0.6 mg/dL (0.2-1.3); Bilirubin Unconjugated 0.4 mg/dL (0.0-1.1); Globulin 2.7 g/dL (1.7-4.1); HEMOLYSIS < 15 (0-50); Total Protein 6.9 g/dL (6.3-8.2)
[2020-05-19 09:38] LABS: Alanine Aminotransferase 986 IU/L (<35)
== END ==
PROVIDERS: PCP Registered Nurse Diabetes Educator; Referring Provider Internal Medicine Gastroenterology; Visit Provider Internal Medicine Gastroenterology
DX: K76.0 Fatty (change of) liver, not elsewhere classified (principal); R74.01 Elevation of levels of liver transaminase levels
CPT/HCPCS: 36415; 80076

== ENCOUNTER → 2020-07-19 09:18 | Outpatient (CLI) | payer OTHER, MEDICAID, SELFPAY ==
[2020-07-19 10:00] LABS: Albumin 4.1 g/dL (3.5-5.0); Albumin Globulin Ratio 1.7 (1.0-2.8); Alkaline Phosphatase 87 U/L (38-126); Aspartate Aminotransferase 565 IU/L (14-36); Bilirubin Total 0.5 mg/dL (0.2-1.3); Bilirubin Unconjugated 0.5 mg/dL (0.0-1.1); Globulin 2.4 g/dL (1.7-4.1); HEMOLYSIS < 15 (0-50); Total Protein 6.5 g/dL (6.3-8.2)
[2020-07-19 10:11] LABS: Alanine Aminotransferase 955 IU/L (<35)
== END ==
PROVIDERS: PCP Registered Nurse Diabetes Educator; Referring Provider Internal Medicine Gastroenterology; Visit Provider Internal Medicine Gastroenterology
DX: K76.0 Fatty (change of) liver, not elsewhere classified (principal)
CPT/HCPCS: 36415; 80076

== ENCOUNTER → 2020-07-26 07:27 | Outpatient (CLI) | payer OTHER, MEDICAID, SELFPAY ==
[2020-07-26 08:14] LABS: Alanine Aminotransferase 649 IU/L (<35); Albumin 4.1 g/dL (3.5-5.0); Albumin Globulin Ratio 1.7 (1.0-2.8); Alkaline Phosphatase 82 U/L (38-126); Aspartate Aminotransferase 334 IU/L (14-36); Bilirubin Total 0.6 mg/dL (0.2-1.3); Bilirubin Unconjugated 0.6 mg/dL (0.0-1.1); Globulin 2.4 g/dL (1.7-4.1); HEMOLYSIS < 15 (0-50); Total Protein 6.5 g/dL (6.3-8.2)
== END ==
PROVIDERS: PCP Registered Nurse Diabetes Educator; Referring Provider Registered Nurse Diabetes Educator; Visit Provider Internal Medicine Gastroenterology
DX: K76.0 Fatty (change of) liver, not elsewhere classified (principal)
CPT/HCPCS: 36415; 80076

== ENCOUNTER → 2020-08-02 07:39 | Outpatient (CLI) | payer OTHER, MEDICAID, SELFPAY ==
[2020-08-02 08:51] LABS: Alanine Aminotransferase 424 IU/L (<35); Albumin 4.2 g/dL (3.5-5.0); Albumin Globulin Ratio 1.8 (1.0-2.8); Alkaline Phosphatase 69 U/L (38-126); Aspartate Aminotransferase 212 IU/L (14-36); Bilirubin Total 0.6 mg/dL (0.2-1.3); Bilirubin Unconjugated 0.7 mg/dL (0.0-1.1); Globulin 2.4 g/dL (1.7-4.1); HEMOLYSIS < 15 (0-50); Total Protein 6.6 g/dL (6.3-8.2)
== END ==
PROVIDERS: PCP Registered Nurse Diabetes Educator; Referring Provider Internal Medicine Gastroenterology; Visit Provider Internal Medicine Gastroenterology
DX: K76.0 Fatty (change of) liver, not elsewhere classified (principal)
CPT/HCPCS: 36415; 80076

== ENCOUNTER → 2020-08-03 11:49 | Outpatient (CLI) | payer OTHER, MEDICAID, SELFPAY ==
--- NOTE | 2020-08-03 | DI.MRI.S_ITS ---
PROCEDURE: MR LUMBAR SPINE WO CON INDICATIONS: Radiculopathy, lumbar region TECHNIQUE: Noncontrast sagittal T1 spin echo and T2 fast echo, sagittal STIR, axial T1 and T2 fast spin echo through the lumbar spine. In cases with scoliosis, additional coronal T2 fast spin echo may be performed. COMPARISON: None. FINDINGS: Image quality: Diagnostic, with note made of motion artifact. Alignment and Curvature: There is normal bony alignment. Bone Marrow: Marrow is of normal overall signal. No acute vertebral body compression fractures. Spinal Cord: Conus medullaris terminates at the L1 level. Visualized cord demonstrates normal signal and size. Paraspinous Soft Tissues: No paravertebral masses. 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 T12-L1: Normal appearance. L1-L2: Normal appearance. L2-L3: Normal appearance. L3-L4: The disc height is well preserved. Mild loss of disc signal can be seen. Moderate disc bulge is seen, which is eccentric to the left. Mild facet joint hypertrophy is seen. There is racy-sy-dobvvjuw right-sided and moderate left-sided neural foraminal narrowing seen. Moderate central canal narrowing is seen. The degree of left-sided neural foraminal narrowing is slightly improved compared to 2019. L4-L5: The disc height is well-preserved. Loss of disc signal is seen at this level. There is a focal annular fissure seen posteriorly. Moderate disc bulge is seen, with a mild central disc protrusion. Mild to moderate facet hypertrophy can be seen at this level. There is moderate bilateral neural foraminal narrowing seen. Moderate central canal narrowing is seen. When comparison is made with the prior examination, these findings are similar. L5-S1: The disc height is well-preserved. Loss of disc signal is seen at this level. Mild to moderate disc bulge is seen, which is eccentric to the right. There is a central/right disc extrusion, with mild inferior migration of the disc material. There is an associated annular fissure seen. Mild facet joint hypertrophy is seen. Moderate bilateral neural foraminal narrowing can be seen. Moderate central canal narrowing is seen. Compared to 2019, the degree of disc extrusion is slightly progressed. IMPRESSION: Lower lumbar spine degenerative changes are seen. At L5-S1, the degree of right-sided disc extrusion is slightly progressed compared to 2019. Compared to 2018, the degree of left-sided neural foraminal narrowing at L3-L4 is slightly improved. Incidental note is made of: Anomalous, partially left-sided inferior vena cava Dictated by: Terence Alonso M.D. on 08/03/2020 at 12:04 Approved by: Terence Alonso M.D. on 08/03/2020 at 12:08
== END ==
PROVIDERS: PCP Registered Nurse Diabetes Educator; Referring Provider Psychiatry & Neurology Neurology; Visit Provider Psychiatry & Neurology Neurology
DX: M47.27 Other spondylosis with radiculopathy, lumbosacral region (principal); M51.17 Intervertebral disc disorders with radiculopathy, lumbosacral region; Q26.9 Congenital malformation of great vein, unspecified
CPT/HCPCS: 72148

== ENCOUNTER → 2020-08-22 14:02 | Outpatient (CLI) | payer OTHER, MEDICAID, SELFPAY ==
--- NOTE | 2020-08-22 14:03 | DI.MG.S_ITS ---
BILATERAL DIGITAL DIAGNOSTIC MAMMOGRAM 3D/2D SHORT-TERM FOLLOW-UP: 08/22/2020 CLINICAL: Short term follow up of the right breast, due for bilateral imaging. Comparison is made to exams dated: 09/24/2019 mammogram, 09/06/2019 mammogram, and 03/26/2017 mammogram - [facility]. The tissue of both breasts is heterogeneously dense. This may lower the sensitivity of mammography. There are grouped fine calcifications in the right breast at 11 o'clock posterior depth. These are seen in additional views. These are increased in number. No other significant masses, calcifications, or other findings are seen in either breast. IMPRESSION: SUSPICIOUS OF MALIGNANCY The grouped fine calcifications in the right breast are at a low suspicion for malignancy. A stereotactic biopsy is recommended. This exam was interpreted at Station ID: Unknown. NOTE: For mammograms, a report in lay terms will be sent to the patient. Approximately 15% of breast malignancies will not be visualized mammographically. In the management of a palpable breast mass, a negative mammogram must not discourage biopsy of a clinically suspicious lesion. Electronically Signed By: Roger Odell acr/:08/23/2020 10:58:27 copy to: LORNA AMEZCUA letter sent: Biopsy Required ACR BI-RADS Category 4a: Suspicious abnormality - low suspicion for malignancy 3344F
== END ==
PROVIDERS: PCP Registered Nurse Diabetes Educator; Referring Provider Registered Nurse Diabetes Educator; Visit Provider Registered Nurse Diabetes Educator
DX: R92.8 Other abnormal and inconclusive findings on diagnostic imaging of breast (principal); R92.1 Mammographic calcification found on diagnostic imaging of breast
CPT/HCPCS: 77066; G0279

== ENCOUNTER 2020-09-14 10:30 | Outpatient (RCR) | payer OTHER, MEDICAID, SELFPAY ==
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
--- NOTE | 2019-12-07 12:02 | PT.OPPOC ---
Physical, Occupational & Speech Therapy At [facility] Current Diagnoses Cervicalgia (12/07/19) Occipital neuralgia (12/07/19) Visit Care Team Role Provider Type Deb Ledesma PA-C Primary Care Provider Advanced Backup Sawyer Specialty: Medical Address: [address] [place] [address], [facility] [address], [address] Email: [email or web address] Caryn Ewing DO Attending Provider Non-Staff Referring Provider Specialty: Psychiatry Address: [address] [place] [address], [address] Email: Plan Of Care PT-OP-T Assessment and Plan Start: 12/07/19 11:25 Freq: Status: Active Protocol: Document 12/07/19 11:26 (Rec: 12/07/19 12:01 [email or web address]) Physical Therapy Assessment Rehab Potential Rehabilitation Potential Excellent Evaluation Complexity Number of Personal Factors/Comorbidities 1-2 Number of Body Systems Impaired 1-2 Clinical Presentation at Evaluation Stable Impairments Impairments Activity Tolerance,Functional Activities,Functional Mobility ,Pain,Posture,ROM,Sensation, Soft Tissue Mobility,Strength Goals headache Impairment Pt has constant headache througout the day Short Term Goal (STG) Pt will have headache episodes no more than 3 times a week STG Duration 4 weeks Hemodialysis Technician Goal (LTG) pt will have headahce episodes no more than once a week. LTG Duration 8 weeks NDI Impairment pt scores 19 Skilled Nursing Goal (LTG) pt will score <10 for NDL to improve her quality of life special test Impairment pt is +ve for UTTT, compression, foraminal compression, passive neck flexio Skilled Nursing Goal (LTG) pt will be symptoms free for all special tests to improve her neural sensitivity for better quality of sleep. LTG Duration 8 weeks Assessment Summary Assessment This is a moderate complexity evaluation for this 39yo female with c/o constant headaches and radiating numbness / tingling sensation to 4-5 th finger since her concussion/head injury back in Feb, 2019. Upon assessment, pt presents with cervicogenic headahce and cervical radiculopathy symptoms. Her pain was reproduced with pressure at suboccipital region, proximal SCM and levator scap, along with hypomobile C1-C4. She was positive for UTTT (median and ulnar on Rside), compression and foraminal compression test which indicate cervical radiculopathy. She also have impaired sensation to light touch for C6-T1 dermatome. However, her overall C/S ROM, UE strength remained intact. Pt will benefit from skilled therapy to improve her cervical stability and neural sensitivity in order to improve her quality of life in symptoms free. Physical Therapy Plan Frequency and Duration Frequency of Treatment 2x/Week Duration of Treatment 8 weeks Plan of Care Start Date 12/07/19 Plan of Care End Date 02/05/20 Therapeutic Interventions Therapeutic Interventions Home Exercise Program,Joint Mobilizations,Manual Therapy, Neuromuscular Re-education, Patient/Caregiver Education, Self-Care/Home Management,Soft Tissue Mobilization,Taping, Therapeutic Activities, Therapeutic Exercises Next Visit Focus/Plan Next Note Type Treatment Note Next Visit Plan check neck stability (flexion ext) T/S rotation extension STM on sub, tennis ball nerve glide neck stability ex. Plan of Care Dates Plan of Care Start Date 12/07/19 Plan of Care End Date 02/05/20 Electronically Signed by: Connor Box PT 12/07/19 120 Please Sign and Return: I have reviewed this Plan of Care and certify that the skilled therapy services above are required to meet the patient?s needs. Physician Signature Date Printed Name and Credentials Clinical Instructor Signature Printed Name and Credentials
--- NOTE | 2019-12-09 09:49 | PT.OTN ---
Current Diagnoses Cervicalgia (12/09/19) Occipital neuralgia (12/09/19) Physical Therapy Treatment Note PT-OP-A Visit Information Start: 12/07/19 11:25 Freq: Status: Active Protocol: Document 12/09/19 08:59 HH (Rec: 12/09/19 09:48 HH [id number]) Out-Patient Physical Therapy Visit Information Visit Information Visit Type Treatment Note Visit Start Time 09:05 Visit Stop Time 09:45 Total Visit Minutes 40 Visit Number 08/29 Number of BUSINESS SERVICES VICE PRESIDENT Visits 0 PT-OP-B Current Condition Start: 12/07/19 11:25 Freq: Status: Active Protocol: Document 12/07/19 11:26 HH (Rec: 12/07/19 12:01 HH [email or web address]) Current Condition History of Current Condition Onset Date Feb, 2019 Current Complaints Tension headache, Neck pain, numbness in hands History of Current Condition Pt is a 39yo female sustained a concussion and head injury after a fall on the boat in February,. Pt hit the right side of the back of head but she did not seek for medical attention. Pt then experienced headache at the base of skull everyday and radiating pain to temporal region on the R side for 5-10 secs couple times a week, along with R neck pain. She also c/o frequent numbness/ shooting pain down to her 4th and 5th fingers that affects her sleep every night. The vibration of walking downhill, jumping motion tend to exacerbate her symptoms. She also experiences vertigo while looking down and tilting her head back. Pt had brain and neck MRI and both are unremarkable except there are some cervical DJD, centarl canal stenosis C6-c7 and forminal stenosis C5-6. Besides, pt also c/o mid to LBP primarily on the right side. 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 Prior Treatments and Tests Pt is currently going to massage therapist once a week and that tends to her symptoms Pt had brain and neck MRI and both are unremarkable except there are some cervical DJD, centarl canal stenosis C6-c7 and forminal stenosis C5-6. Treatment Goals Patient/Caregiver Goals 1. to be headache free everyday 2. to be able to sleep without tingling sensation/ numbness sensation to her fingers Personal Factors Other Personal Factors That May Effect Post concussion Therapy/Recovery possible TBI PT-OP-C Subjective Start: 12/07/19 11:25 Freq: Status: Active Protocol: Document 12/09/19 08:59 HH (Rec: 12/09/19 09:49 HH [id number]) OP-PT Subjective Patient Comments Patient Comments I got quite sore after last assessment. I have the radiating headache to my side of the head this morning. Patient Reported Progress Same PT-OP-F Manual Assessment Start: 12/07/19 11:25 Freq: Status: Active Protocol: Document 12/07/19 11:26 HH (Rec: 12/07/19 12:01 [email or web address]) Manual Assessments Soft Tissue Assessment Soft Tissue Mobility Assessment significant tenderness to pressure at bilateral suboccipital region, proximal R SCM, R levator scap referred pain pattern no noted . Joint Mobility Assessment Joint Mobility Assessment hypomobile with PA at C1-C4, and T1-T4 PT-OP-H Neuro Start: 12/07/19 11:25 Freq: Status: Active Protocol: Document 12/07/19 11:26 HH (Rec: 12/07/19 12:01 [email or web address]) Sensation Evaluation Gross Sensation Gross Sensation Right UE Impaired Sensation Description Paresthesia,Numbness Dermatome Impairments C6,C7,C8,T1 Comments Summary Comments pt reports dull feeling with c6-t1 dermatome on R side Deep Tendon Reflex & Clonus Assessment Deep Tendon Reflex Bilateral Brachioradialis Deep Tendon Reflex 2+ Normal Bilateral Tricep Deep Tendon Reflex 2+ Normal Bilateral Bicep Deep Tendon Reflex 2+ Normal PT-OP-K Range of Motion Start: 12/07/19 11:25 Freq: Status: Active Protocol: Document 12/07/19 11:26 HH (Rec: 12/07/19 12:01 [email or web address]) Cervical Spine Range of Motion Cervical Spine Active Percentage Testing Position Sitting Comments no limitation noted for AROM but pulling sensation noted at midback with cervical flexion pinching pain noted with cervical extension and cervical extension +rotation PT-OP-L Special Tests Start: 12/07/19 11:25 Freq: Status: Active Protocol: Document 12/07/19 11:26 HH (Rec: 12/07/19 12:01 [email or web address]) Special Tests Cervical Spine Special Tests compression Test Results +VE R Comments radiating numbness to 4 and 5 th fingers Foraminal Compression Test Results +ve B Comments pinching pain at C2-4 region Upper Limb Tension Test Test Results +VE R Comments both median and ulnar nerves Passive Neck Flexion Test Results +ve Comments pulling sensation at R midback Spurling's Test Test Results -ve PT-OP-M Strength Start: 12/07/19 11:25 Freq: Status: Active Protocol: Document 12/07/19 11:26 HH (Rec: 12/07/19 12:01 HH [email or web address]) Shoulder Strength Shoulder Manual Muscle Testing Right Flexion 5 Normal Extension 5 Normal Abduction (C5) 5 Normal Adduction 5 Normal Left Flexion 5 Normal Extension 5 Normal Abduction (C5) 5 Normal Adduction 5 Normal Elbow/Forearm Strength Elbow and Forearm Manual Muscle Testing Right Flexion (C6) 5 Normal Extension (C7) 5 Normal Left Flexion (C6) 5 Normal Extension (C7) 5 Normal PT-OP-Q Treatments Start: 12/07/19 11:25 Freq: Status: Active Protocol: Document 12/09/19 08:59 HH (Rec: 12/09/19 09:48 [id number]) Therapeutic Exercises Supine Exercises supine chin tuck Side bilateral Reps/Minutes 10 s hold x2 Comments for HEP supine neck hold Supine Exercise Name deep cervical flexor endurance Reps/Minutes 60 s Comments for HEP, pain noted tennis ball release Side bilateral Equipment Used tennis ball Reps/Minutes 2 mins Comments peanut shape for suboccipital release Prone Exercises prone neck hold Prone Exercise Name deep cervical extensor endurance Reps/Minutes 60s Comments for HEP, less pain noted Sitting Exercises shoulder shrugs Side bilateral Reps/Minutes 10 times Comments for hep levator scap stretch Side bilateral Reps/Minutes 20 secs hold x2 Comments for HEP Manual Therapy Treatment Soft Tissue Mobilization SCM, upper trap Mobilization Type Instrument Assisted,Sustained Pressure,Trigger Point Release Intensity/Depth Moderate Body Position Sitting suboccipital Mobilization Type Instrument Assisted,Sustained Pressure,Trigger Point Release Intensity/Depth Moderate Body Position Sitting Manual Techniques ulnar nerve glide Body Position Supine Reps/Duration 2 mins Comments with c/s rotation median nerve glide Body Position Supine Reps/Duration 2 mins Comments with c/s rotation pain at wrist > L PT-OP-T Assessment and Plan Start: 12/07/19 11:25 Freq: Status: Active Protocol: Document 12/09/19 08:59 HH (Rec: 12/09/19 09:48 [id number]) Physical Therapy Assessment Goals cervical stability Impairment 60s for flexion hold, 80s for extension hold but pain reported for both Lockstitch Tunnel Elastic Operator Goal (LTG) Pt will be able hold for both cervical flexion and extension position in supine > 80s without neck pain to improve cervical stability LTG Duration 8 weeks headache Impairment Pt has constant headache througout the day Short Term Goal (STG) Pt will have headache episodes no more than 3 times a week STG Duration 4 weeks Mcc Goal (LTG) pt will have headahce episodes no more than once a week. LTG Duration 8 weeks NDI Impairment pt scores 19 Lockstitch Tunnel Elastic Operator Goal (LTG) pt will score <10 for NDL to improve her quality of life special test Impairment pt is +ve for UTTT, compression, foraminal compression, passive neck flexio Mcc Goal (LTG) pt will be symptoms free for all special tests to improve her neural sensitivity for better quality of sleep. LTG Duration 8 weeks Assessment Summary Assessment Pt ranjit tx very well with focus on manual therapy on suboccipital muscle group, levator scap. Signficaint tenderness to pressure noted at B suboccipitals. Added chin tuck, levator stretch, shoulder shrugs and median nerve glide. Pt will be gone for 10 days for vacation. Physical Therapy Plan Next Visit Focus/Plan Next Note Type Treatment Note Next Visit Plan check neck stability (flexion ext) T/S rotation extension STM on sub, tennis ball nerve glide neck stability ex.
--- NOTE | 2019-12-30 11:18 | PT.OTN ---
Current Diagnoses Cervicalgia (12/30/19) Occipital neuralgia (12/30/19) Physical Therapy Treatment Note PT-OP-A Visit Information Start: 12/07/19 11:25 Freq: Status: Active Protocol: Document 12/30/19 10:39 HH (Rec: 12/30/19 11:18 HH [id number]) Out-Patient Physical Therapy Visit Information Visit Information Visit Type Treatment Note Visit Start Time 10:35 Visit Stop Time 11:15 Total Visit Minutes 40 Visit Number 09/26 Number of TRIAGE LICENSED PRACTICAL NURSE Visits 0 PT-OP-B Current Condition Start: 12/07/19 11:25 Freq: Status: Active Protocol: Document 12/07/19 11:26 HH (Rec: 12/07/19 12:01 HH [email or web address]) Current Condition History of Current Condition Onset Date Feb, 2019 Current Complaints Tension headache, Neck pain, numbness in hands History of Current Condition Pt is a 39yo female sustained a concussion and head injury after a fall on the boat in February,. Pt hit the right side of the back of head but she did not seek for medical attention. Pt then experienced headache at the base of skull everyday and radiating pain to temporal region on the R side for 5-10 secs couple times a week, along with R neck pain. She also c/o frequent numbness/ shooting pain down to her 4th and 5th fingers that affects her sleep every night. The vibration of walking downhill, jumping motion tend to exacerbate her symptoms. She also experiences vertigo while looking down and tilting her head back. Pt had brain and neck MRI and both are unremarkable except there are some cervical DJD, centarl canal stenosis C6-c7 and forminal stenosis C5-6. Besides, pt also c/o mid to LBP primarily on the right side. 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 Prior Treatments and Tests Pt is currently going to massage therapist once a week and that tends to her symptoms Pt had brain and neck MRI and both are unremarkable except there are some cervical DJD, centarl canal stenosis C6-c7 and forminal stenosis C5-6. Treatment Goals Patient/Caregiver Goals 1. to be headache free everyday 2. to be able to sleep without tingling sensation/ numbness sensation to her fingers Personal Factors Other Personal Factors That May Effect Post concussion Therapy/Recovery possible TBI PT-OP-C Subjective Start: 12/07/19 11:25 Freq: Status: Active Protocol: Document 12/30/19 10:39 HH (Rec: 12/30/19 11:18 HH [id number]) OP-PT Subjective Patient Comments Patient Comments Natalia been doing my ex consistently at the begining, along with my massage therapist help, i did have quite a relief for my neck pain and headache for a couple days but then i started slacking again. My tingling and numbness has gone down a lot Patient Reported Progress Improving PT-OP-F Manual Assessment Start: 12/07/19 11:25 Freq: Status: Active Protocol: Document 12/07/19 11:26 HH (Rec: 12/07/19 12:01 [email or web address]) Manual Assessments Soft Tissue Assessment Soft Tissue Mobility Assessment significant tenderness to pressure at bilateral suboccipital region, proximal R SCM, R levator scap referred pain pattern no noted . Joint Mobility Assessment Joint Mobility Assessment hypomobile with PA at C1-C4, and T1-T4 PT-OP-H Neuro Start: 12/07/19 11:25 Freq: Status: Active Protocol: Document 12/07/19 11:26 HH (Rec: 12/07/19 12:01 [email or web address]) Sensation Evaluation Gross Sensation Gross Sensation Right UE Impaired Sensation Description Paresthesia,Numbness Dermatome Impairments C6,C7,C8,T1 Comments Summary Comments pt reports dull feeling with c6-t1 dermatome on R side Deep Tendon Reflex & Clonus Assessment Deep Tendon Reflex Bilateral Brachioradialis Deep Tendon Reflex 2+ Normal Bilateral Tricep Deep Tendon Reflex 2+ Normal Bilateral Bicep Deep Tendon Reflex 2+ Normal PT-OP-K Range of Motion Start: 12/07/19 11:25 Freq: Status: Active Protocol: Document 12/07/19 11:26 HH (Rec: 12/07/19 12:01 [email or web address]) Cervical Spine Range of Motion Cervical Spine Active Percentage Testing Position Sitting Comments no limitation noted for AROM but pulling sensation noted at midback with cervical flexion pinching pain noted with cervical extension and cervical extension +rotation PT-OP-L Special Tests Start: 12/07/19 11:25 Freq: Status: Active Protocol: Document 12/07/19 11:26 HH (Rec: 12/07/19 12:01 [email or web address]) Special Tests Cervical Spine Special Tests compression Test Results +VE R Comments radiating numbness to 4 and 5 th fingers Foraminal Compression Test Results +ve B Comments pinching pain at C2-4 region Upper Limb Tension Test Test Results +VE R Comments both median and ulnar nerves Passive Neck Flexion Test Results +ve Comments pulling sensation at R midback Spurling's Test Test Results -ve PT-OP-M Strength Start: 12/07/19 11:25 Freq: Status: Active Protocol: Document 12/07/19 11:26 HH (Rec: 12/07/19 12:01 [email or web address]) Shoulder Strength Shoulder Manual Muscle Testing Right Flexion 5 Normal Extension 5 Normal Abduction (C5) 5 Normal Adduction 5 Normal Left Flexion 5 Normal Extension 5 Normal Abduction (C5) 5 Normal Adduction 5 Normal Elbow/Forearm Strength Elbow and Forearm Manual Muscle Testing Right Flexion (C6) 5 Normal Extension (C7) 5 Normal Left Flexion (C6) 5 Normal Extension (C7) 5 Normal PT-OP-Q Treatments Start: 12/07/19 11:25 Freq: Status: Active Protocol: Document 12/30/19 10:39 HH (Rec: 12/30/19 11:18 [id number]) Therapeutic Exercises Supine Exercises tennis ball release Side bilateral Equipment Used tennis ball Reps/Minutes 2 mins Comments peanut shape for suboccipital release Sidelying Exercises open book Sidelying Exercise Name for HEP Side bilateral Reps/Minutes 8 x2 Comments decreased rotation noted on R side Sitting Exercises levator scap stretch Side bilateral Reps/Minutes 20 secs hold x2 Comments for HEP Manual Therapy Treatment Soft Tissue Mobilization R pec Mobilization Type Sustained Pressure,Trigger Point Release Intensity/Depth Moderate Body Position Supine Comments significant tenderness noted at R pec SCM, upper trap Mobilization Type Instrument Assisted,Sustained Pressure,Trigger Point Release Intensity/Depth Moderate Body Position Supine suboccipital Mobilization Type Instrument Assisted,Sustained Pressure,Trigger Point Release Intensity/Depth Moderate Body Position Sitting Comments tenderness noted with pressure but relieved after STM PT-OP-T Assessment and Plan Start: 12/07/19 11:25 Freq: Status: Active Protocol: Document 12/30/19 10:39 (Rec: 12/30/19 11:18 [id number]) Physical Therapy Assessment Goals cervical stability Impairment 60s for flexion hold, 80s for extension hold but pain reported for both Fpc Goal (LTG) Pt will be able hold for both cervical flexion and extension position in supine > 80s without neck pain to improve cervical stability LTG Duration 8 weeks headache Impairment Pt has constant headache througout the day Short Term Goal (STG) Pt will have headache episodes no more than 3 times a week STG Duration 4 weeks Fpc Goal (LTG) pt will have headahce episodes no more than once a week. LTG Duration 8 weeks NDI Impairment pt scores 19 Cost Accounting Clerk Goal (LTG) pt will score <10 for NDL to improve her quality of life special test Impairment pt is +ve for UTTT, compression, foraminal compression, passive neck flexio Fpc Goal (LTG) pt will be symptoms free for all special tests to improve her neural sensitivity for better quality of sleep. LTG Duration 8 weeks Assessment Summary Assessment Pt has not been seen since 12/08 due to vacation. However, her median nerve tension has significantly improved with improved cervical ROM and reduced headahce. Educated pt to be consistent with HEP and get tennis ball for suboccipital release. Added open book for pt to increase thoracic rotation and improve pec tightness. Physical Therapy Plan Next Visit Focus/Plan Next Note Type Treatment Note Next Visit Plan T/S rotation extension STM on sub, tennis ball nerve glide neck stability ex. add UBE/ elipitical if approp
--- NOTE | 2020-01-06 10:06 | PT.OTN ---
Current Diagnoses Cervicalgia (01/06/20) Occipital neuralgia (01/06/20) Physical Therapy Treatment Note PT-OP-A Visit Information Start: 12/07/19 11:25 Freq: Status: Active Protocol: Document 01/06/20 09:01 HH (Rec: 01/06/20 10:06 [id number]) Out-Patient Physical Therapy Visit Information Visit Information Visit Type Treatment Note Visit Start Time 09:00 Visit Stop Time 09:45 Total Visit Minutes 45 Visit Number 10/27 Number of FITNESS AND WELLNESS MANAGER Visits 0 PT-OP-B Current Condition Start: 12/07/19 11:25 Freq: Status: Active Protocol: Document 12/07/19 11:26 HH (Rec: 12/07/19 12:01 [email or web address]) Current Condition History of Current Condition Onset Date Feb, 2019 Current Complaints Tension headache, Neck pain, numbness in hands History of Current Condition Pt is a 39yo female sustained a concussion and head injury after a fall on the boat in February,. Pt hit the right side of the back of head but she did not seek for medical attention. Pt then experienced headache at the base of skull everyday and radiating pain to temporal region on the R side for 5-10 secs couple times a week, along with R neck pain. She also c/o frequent numbness/ shooting pain down to her 4th and 5th fingers that affects her sleep every night. The vibration of walking downhill, jumping motion tend to exacerbate her symptoms. She also experiences vertigo while looking down and tilting her head back. Pt had brain and neck MRI and both are unremarkable except there are some cervical DJD, centarl canal stenosis C6-c7 and forminal stenosis C5-6. Besides, pt also c/o mid to LBP primarily on the right side. 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 Prior Treatments and Tests Pt is currently going to massage therapist once a week and that tends to her symptoms Pt had brain and neck MRI and both are unremarkable except there are some cervical DJD, centarl canal stenosis C6-c7 and forminal stenosis C5-6. Treatment Goals Patient/Caregiver Goals 1. to be headache free everyday 2. to be able to sleep without tingling sensation/ numbness sensation to her fingers Personal Factors Other Personal Factors That May Effect Post concussion Therapy/Recovery possible TBI PT-OP-C Subjective Start: 12/07/19 11:25 Freq: Status: Active Protocol: Document 01/06/20 09:01 (Rec: 01/06/20 10:06 [id number]) OP-PT Subjective Patient Comments Patient Comments My neck is doing better. I only have numbness twice for the past week. And i have been doing all my exercises. Patient Reported Progress Improving PT-OP-F Manual Assessment Start: 12/07/19 11:25 Freq: Status: Active Protocol: Document 12/07/19 11:26 HH (Rec: 12/07/19 12:01 [email or web address]) Manual Assessments Soft Tissue Assessment Soft Tissue Mobility Assessment significant tenderness to pressure at bilateral suboccipital region, proximal R SCM, R levator scap referred pain pattern no noted . Joint Mobility Assessment Joint Mobility Assessment hypomobile with PA at C1-C4, and T1-T4 PT-OP-H Neuro Start: 12/07/19 11:25 Freq: Status: Active Protocol: Document 12/07/19 11:26 HH (Rec: 12/07/19 12:01 [email or web address]) Sensation Evaluation Gross Sensation Gross Sensation Right UE Impaired Sensation Description Paresthesia,Numbness Dermatome Impairments C6,C7,C8,T1 Comments Summary Comments pt reports dull feeling with c6-t1 dermatome on R side Deep Tendon Reflex & Clonus Assessment Deep Tendon Reflex Bilateral Brachioradialis Deep Tendon Reflex 2+ Normal Bilateral Tricep Deep Tendon Reflex 2+ Normal Bilateral Bicep Deep Tendon Reflex 2+ Normal PT-OP-K Range of Motion Start: 12/07/19 11:25 Freq: Status: Active Protocol: Document 12/07/19 11:26 HH (Rec: 12/07/19 12:01 [email or web address]) Cervical Spine Range of Motion Cervical Spine Active Percentage Testing Position Sitting Comments no limitation noted for AROM but pulling sensation noted at midback with cervical flexion pinching pain noted with cervical extension and cervical extension +rotation PT-OP-L Special Tests Start: 12/07/19 11:25 Freq: Status: Active Protocol: Document 12/07/19 11:26 HH (Rec: 12/07/19 12:01 [email or web address]) Special Tests Cervical Spine Special Tests compression Test Results +VE R Comments radiating numbness to 4 and 5 th fingers Foraminal Compression Test Results +ve B Comments pinching pain at C2-4 region Upper Limb Tension Test Test Results +VE R Comments both median and ulnar nerves Passive Neck Flexion Test Results +ve Comments pulling sensation at R midback Spurling's Test Test Results -ve PT-OP-M Strength Start: 12/07/19 11:25 Freq: Status: Active Protocol: Document 12/07/19 11:26 (Rec: 12/07/19 12:01 [email or web address]) Shoulder Strength Shoulder Manual Muscle Testing Right Flexion 5 Normal Extension 5 Normal Abduction (C5) 5 Normal Adduction 5 Normal Left Flexion 5 Normal Extension 5 Normal Abduction (C5) 5 Normal Adduction 5 Normal Elbow/Forearm Strength Elbow and Forearm Manual Muscle Testing Right Flexion (C6) 5 Normal Extension (C7) 5 Normal Left Flexion (C6) 5 Normal Extension (C7) 5 Normal PT-OP-Q Treatments Start: 12/07/19 11:25 Freq: Status: Active Protocol: Document 01/06/20 09:01 (Rec: 01/06/20 10:06 [id number]) Cardio Equipment Elliptical Duration (Minutes) 5 Resistance 1 Other slight discomfort at neck and midback Therapeutic Exercises Prone Exercises hor abduction Prone Exercise Name with scap queeze Side bilateral Reps/Minutes 8 x 2 Comments for HEP prone scap squeeze Side bilateral Reps/Minutes 8 x2 Comments for HEP prayer stretch Prone Exercise Name for tspine extension Side bilateral Reps/Minutes 8 x2 Comments for HEP Sidelying Exercises open book Sidelying Exercise Name pt able to reach the opposite side of table Side bilateral Reps/Minutes 8 x2 Comments for HEP, no pain noted Manual Therapy Treatment Soft Tissue Mobilization R pec Mobilization Type Sustained Pressure,Trigger Point Release Intensity/Depth Moderate Body Position Supine Comments significant tenderness noted at R pec SCM, upper trap Mobilization Type Instrument Assisted,Sustained Pressure,Trigger Point Release Intensity/Depth Moderate Body Position Supine Joint Mobilizations PA mob Joint T1-T6 TP and SP Direction PA Grade II Body Position Prone Comments pain noted T1-3 worse than T4- 6 PT-OP-T Assessment and Plan Start: 12/07/19 11:25 Freq: Status: Active Protocol: Document 01/06/20 09:01 (Rec: 01/06/20 10:06 [id number]) Physical Therapy Assessment Goals cervical stability Impairment 60s for flexion hold, 80s for extension hold but pain reported for both Senior Care Goal (LTG) Pt will be able hold for both cervical flexion and extension position in supine > 80s without neck pain to improve cervical stability LTG Duration 8 weeks headache Impairment Pt has constant headache througout the day Short Term Goal (STG) Pt will have headache episodes no more than 3 times a week STG Duration 4 weeks City Designer Goal (LTG) pt will have headahce episodes no more than once a week. LTG Duration 8 weeks NDI Impairment pt scores 19 City Designer Goal (LTG) pt will score <10 for NDL to improve her quality of life special test Impairment pt is +ve for UTTT, compression, foraminal compression, passive neck flexio City Designer Goal (LTG) pt will be symptoms free for all special tests to improve her neural sensitivity for better quality of sleep. LTG Duration 8 weeks Assessment Summary Assessment Pt cont to show improvements with cervical ROM with minimal pain and neurological symptoms. Added T spine extension ex, open book, scap squeeze and scap hor abduction . Initiatiad T spine mobility, neck stabilit ex and pt ranjit tx well. Started eliptical today . Physical Therapy Plan Next Visit Focus/Plan Next Note Type Treatment Note Next Visit Plan scap stability ex T/S rotation extension STM on sub, tennis ball nerve glide neck stability ex. add UBE/ elipitical if approp
--- NOTE | 2020-01-13 12:09 | PT.OTN ---
Current Diagnoses Cervicalgia (01/13/20) Occipital neuralgia (01/13/20) Physical Therapy Treatment Note PT-OP-A Visit Information Start: 12/07/19 11:25 Freq: Status: Active Protocol: Document 01/13/20 11:18 HH (Rec: 01/13/20 12:09 [id number]) Out-Patient Physical Therapy Visit Information Visit Information Visit Type Treatment Note Visit Start Time 11:16 Visit Stop Time 12:00 Total Visit Minutes 44 Visit Number 11/26 Number of HANDLE ASSEMBLER Visits 0 PT-OP-B Current Condition Start: 12/07/19 11:25 Freq: Status: Active Protocol: Document 12/07/19 11:26 HH (Rec: 12/07/19 12:01 [email or web address]) Current Condition History of Current Condition Onset Date Feb, 2019 Current Complaints Tension headache, Neck pain, numbness in hands History of Current Condition Pt is a 39yo female sustained a concussion and head injury after a fall on the boat in February,. Pt hit the right side of the back of head but she did not seek for medical attention. Pt then experienced headache at the base of skull everyday and radiating pain to temporal region on the R side for 5-10 secs couple times a week, along with R neck pain. She also c/o frequent numbness/ shooting pain down to her 4th and 5th fingers that affects her sleep every night. The vibration of walking downhill, jumping motion tend to exacerbate her symptoms. She also experiences vertigo while looking down and tilting her head back. Pt had brain and neck MRI and both are unremarkable except there are some cervical DJD, centarl canal stenosis C6-c7 and forminal stenosis C5-6. Besides, pt also c/o mid to LBP primarily on the right side. 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 Prior Treatments and Tests Pt is currently going to massage therapist once a week and that tends to her symptoms Pt had brain and neck MRI and both are unremarkable except there are some cervical DJD, centarl canal stenosis C6-c7 and forminal stenosis C5-6. Treatment Goals Patient/Caregiver Goals 1. to be headache free everyday 2. to be able to sleep without tingling sensation/ numbness sensation to her fingers Personal Factors Other Personal Factors That May Effect Post concussion Therapy/Recovery possible TBI PT-OP-C Subjective Start: 12/07/19 11:25 Freq: Status: Active Protocol: Document 01/13/20 11:18 HH (Rec: 01/13/20 12:09 [id number]) OP-PT Subjective Patient Comments Patient Comments I had a massage yesterday.My numbness is hardly there now. My movement is getting better. . Patient Reported Progress Improving PT-OP-F Manual Assessment Start: 12/07/19 11:25 Freq: Status: Active Protocol: Document 12/07/19 11:26 HH (Rec: 12/07/19 12:01 [email or web address]) Manual Assessments Soft Tissue Assessment Soft Tissue Mobility Assessment significant tenderness to pressure at bilateral suboccipital region, proximal R SCM, R levator scap referred pain pattern no noted . Joint Mobility Assessment Joint Mobility Assessment hypomobile with PA at C1-C4, and T1-T4 PT-OP-H Neuro Start: 12/07/19 11:25 Freq: Status: Active Protocol: Document 12/07/19 11:26 HH (Rec: 12/07/19 12:01 [email or web address]) Sensation Evaluation Gross Sensation Gross Sensation Right UE Impaired Sensation Description Paresthesia,Numbness Dermatome Impairments C6,C7,C8,T1 Comments Summary Comments pt reports dull feeling with c6-t1 dermatome on R side Deep Tendon Reflex & Clonus Assessment Deep Tendon Reflex Bilateral Brachioradialis Deep Tendon Reflex 2+ Normal Bilateral Tricep Deep Tendon Reflex 2+ Normal Bilateral Bicep Deep Tendon Reflex 2+ Normal PT-OP-K Range of Motion Start: 12/07/19 11:25 Freq: Status: Active Protocol: Document 12/07/19 11:26 HH (Rec: 12/07/19 12:01 [email or web address]) Cervical Spine Range of Motion Cervical Spine Active Percentage Testing Position Sitting Comments no limitation noted for AROM but pulling sensation noted at midback with cervical flexion pinching pain noted with cervical extension and cervical extension +rotation PT-OP-L Special Tests Start: 12/07/19 11:25 Freq: Status: Active Protocol: Document 12/07/19 11:26 HH (Rec: 12/07/19 12:01 [email or web address]) Special Tests Cervical Spine Special Tests compression Test Results +VE R Comments radiating numbness to 4 and 5 th fingers Foraminal Compression Test Results +ve B Comments pinching pain at C2-4 region Upper Limb Tension Test Test Results +VE R Comments both median and ulnar nerves Passive Neck Flexion Test Results +ve Comments pulling sensation at R midback Spurling's Test Test Results -ve PT-OP-M Strength Start: 12/07/19 11:25 Freq: Status: Active Protocol: Document 12/07/19 11:26 HH (Rec: 12/07/19 12:01 [email or web address]) Shoulder Strength Shoulder Manual Muscle Testing Right Flexion 5 Normal Extension 5 Normal Abduction (C5) 5 Normal Adduction 5 Normal Left Flexion 5 Normal Extension 5 Normal Abduction (C5) 5 Normal Adduction 5 Normal Elbow/Forearm Strength Elbow and Forearm Manual Muscle Testing Right Flexion (C6) 5 Normal Extension (C7) 5 Normal Left Flexion (C6) 5 Normal Extension (C7) 5 Normal PT-OP-Q Treatments Start: 12/07/19 11:25 Freq: Status: Active Protocol: Document 01/13/20 11:18 HH (Rec: 01/13/20 12:09 [id number]) Cardio Equipment Elliptical Duration (Minutes) 8 Resistance 4 Other no pain noted except reaching R Therapeutic Exercises Prone Exercises catcamel Side bilateral Reps/Minutes 8 x2 prayer stretch Prone Exercise Name for tspine extension Side bilateral Reps/Minutes 8 x2 Sidelying Exercises open book Sidelying Exercise Name pt able to reach the opposite side of table Side bilateral Reps/Minutes 8 x2 Comments no pain noted Sitting Exercises shoulder shrugs Sitting Exercise Name full contraction and relaxation Equipment Used with 8 lbs Reps/Minutes 10 x 2 Standing Exercises aquaman Side bilateral Equipment Used with PVC pipe Reps/Minutes 8 x2 Comments full range and scap squeeze shoulder flexion Side bilateral Equipment Used with foam roller Reps/Minutes 8 x2 Comments full range before neck discomfort. Manual Therapy Treatment Soft Tissue Mobilization R pec Mobilization Type Sustained Pressure,Trigger Point Release Intensity/Depth Moderate Body Position Supine Comments significant tenderness noted at R pec PT-OP-T Assessment and Plan Start: 12/07/19 11:25 Freq: Status: Active Protocol: Document 01/13/20 11:18 HH (Rec: 01/13/20 12:09 [id number]) Physical Therapy Assessment Goals cervical stability Impairment 60s for flexion hold, 80s for extension hold but pain reported for both Security Test Engineer Goal (LTG) Pt will be able hold for both cervical flexion and extension position in supine > 80s without neck pain to improve cervical stability LTG Duration 8 weeks headache Impairment Pt has constant headache througout the day Short Term Goal (STG) Pt will have headache episodes no more than 3 times a week STG Duration 4 weeks Security Test Engineer Goal (LTG) pt will have headahce episodes no more than once a week. LTG Duration 8 weeks NDI Impairment pt scores 19 Senior Care Goal (LTG) pt will score <10 for NDL to improve her quality of life special test Impairment pt is +ve for UTTT, compression, foraminal compression, passive neck flexio Security Test Engineer Goal (LTG) pt will be symptoms free for all special tests to improve her neural sensitivity for better quality of sleep. LTG Duration 8 weeks Assessment Summary Assessment Pt's neck is sensitive to pressure today after her massage appointment from yesterday. But her mobility and pain have been consistently improving. This session focused on shoulder strengthening ex. Pt tends to have her R trap engaged and needed cues to avoid excessive contraction. She was able to ranjit 8 mins of eliptical with minimal discomfort. Will give HEP for shoulder and neck strengthening ex next visit. Physical Therapy Plan Next Visit Focus/Plan Next Note Type Treatment Note Next Visit Plan scap stability ex T/S rotation extensione neck stability ex. add UBE/ elipitical if approp introduce impactful ex.
--- NOTE | 2020-01-20 08:15 | PT.OTN ---
Current Diagnoses Cervicalgia (01/20/20) Occipital neuralgia (01/20/20) Physical Therapy Treatment Note PT-OP-A Visit Information Start: 12/07/19 11:25 Freq: Status: Active Protocol: Document 01/20/20 07:32 SP (Rec: 01/20/20 08:20 SP [id number]) Out-Patient Physical Therapy Visit Information Visit Information Visit Type Treatment Note Visit Start Time 07:32 Visit Stop Time 08:15 Total Visit Minutes 43 Visit Number 12/27 Number of FAMILY LIFE COUNSELOR Visits 1 PT-OP-B Current Condition Start: 12/07/19 11:25 Freq: Status: Active Protocol: Document 12/07/19 11:26 HH (Rec: 12/07/19 12:01 HH [email or web address]) Current Condition History of Current Condition Onset Date Feb, 2019 Current Complaints Tension headache, Neck pain, numbness in hands History of Current Condition Pt is a 39yo female sustained a concussion and head injury after a fall on the boat in February,. Pt hit the right side of the back of head but she did not seek for medical attention. Pt then experienced headache at the base of skull everyday and radiating pain to temporal region on the R side for 5-10 secs couple times a week, along with R neck pain. She also c/o frequent numbness/ shooting pain down to her 4th and 5th fingers that affects her sleep every night. The vibration of walking downhill, jumping motion tend to exacerbate her symptoms. She also experiences vertigo while looking down and tilting her head back. Pt had brain and neck MRI and both are unremarkable except there are some cervical DJD, centarl canal stenosis C6-c7 and forminal stenosis C5-6. Besides, pt also c/o mid to LBP primarily on the right side. 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 Prior Treatments and Tests Pt is currently going to massage therapist once a week and that tends to her symptoms Pt had brain and neck MRI and both are unremarkable except there are some cervical DJD, centarl canal stenosis C6-c7 and forminal stenosis C5-6. Treatment Goals Patient/Caregiver Goals 1. to be headache free everyday 2. to be able to sleep without tingling sensation/ numbness sensation to her fingers Personal Factors Other Personal Factors That May Effect Post concussion Therapy/Recovery possible TBI PT-OP-C Subjective Start: 12/07/19 11:25 Freq: Status: Active Protocol: Document 01/20/20 07:32 SP (Rec: 01/20/20 08:20 SP [id number]) OP-PT Subjective Patient Comments Patient Comments After last appt was pretty sore from doing exercises haven't done in a while and coupling with the massage day before felt was to much at one time. Compliant with stretching and ball since last tx to give herself a break. Wants to take it easy today to see if improves. Getting numbness in R ulnar nerve distribution mainly but if sleeps on L side gets median nerve symptoms as well. PT-OP-F Manual Assessment Start: 12/07/19 11:25 Freq: Status: Active Protocol: Document 12/07/19 11:26 HH (Rec: 12/07/19 12:01 HH [email or web address]) Manual Assessments Soft Tissue Assessment Soft Tissue Mobility Assessment significant tenderness to pressure at bilateral suboccipital region, proximal R SCM, R levator scap referred pain pattern no noted . Joint Mobility Assessment Joint Mobility Assessment hypomobile with PA at C1-C4, and T1-T4 PT-OP-H Neuro Start: 12/07/19 11:25 Freq: Status: Active Protocol: Document 12/07/19 11:26 HH (Rec: 12/07/19 12:01 HH [email or web address]) Sensation Evaluation Gross Sensation Gross Sensation Right UE Impaired Sensation Description Paresthesia,Numbness Dermatome Impairments C6,C7,C8,T1 Comments Summary Comments pt reports dull feeling with c6-t1 dermatome on R side Deep Tendon Reflex & Clonus Assessment Deep Tendon Reflex Bilateral Brachioradialis Deep Tendon Reflex 2+ Normal Bilateral Tricep Deep Tendon Reflex 2+ Normal Bilateral Bicep Deep Tendon Reflex 2+ Normal PT-OP-K Range of Motion Start: 12/07/19 11:25 Freq: Status: Active Protocol: Document 12/07/19 11:26 HH (Rec: 12/07/19 12:01 HH [email or web address]) Cervical Spine Range of Motion Cervical Spine Active Percentage Testing Position Sitting Comments no limitation noted for AROM but pulling sensation noted at midback with cervical flexion pinching pain noted with cervical extension and cervical extension +rotation PT-OP-L Special Tests Start: 12/07/19 11:25 Freq: Status: Active Protocol: Document 12/07/19 11:26 HH (Rec: 12/07/19 12:01 [email or web address]) Special Tests Cervical Spine Special Tests compression Test Results +VE R Comments radiating numbness to 4 and 5 th fingers Foraminal Compression Test Results +ve B Comments pinching pain at C2-4 region Upper Limb Tension Test Test Results +VE R Comments both median and ulnar nerves Passive Neck Flexion Test Results +ve Comments pulling sensation at R midback Spurling's Test Test Results -ve PT-OP-M Strength Start: 12/07/19 11:25 Freq: Status: Active Protocol: Document 12/07/19 11:26 (Rec: 12/07/19 12:01 [email or web address]) Shoulder Strength Shoulder Manual Muscle Testing Right Flexion 5 Normal Extension 5 Normal Abduction (C5) 5 Normal Adduction 5 Normal Left Flexion 5 Normal Extension 5 Normal Abduction (C5) 5 Normal Adduction 5 Normal Elbow/Forearm Strength Elbow and Forearm Manual Muscle Testing Right Flexion (C6) 5 Normal Extension (C7) 5 Normal Left Flexion (C6) 5 Normal Extension (C7) 5 Normal PT-OP-Q Treatments Start: 12/07/19 11:25 Freq: Status: Active Protocol: Document 01/20/20 07:32 SP (Rec: 01/20/20 08:20 SP [id number]) Cardio Equipment Elliptical Duration (Minutes) 8 Resistance 4 Other cued UE low on handles more close chain to decrease reaching Therapeutic Exercises Prone Exercises catcamel Side bilateral Reps/Minutes 8 x2 prone scap squeeze Side bilateral Reps/Minutes 8 x2 Comments cued small range, arms side then add CS lift Sidelying Exercises open book Sidelying Exercise Name pt able to reach the opposite side of table Side bilateral Reps/Minutes 8 x2 Comments no pain noted Manual Therapy Treatment Soft Tissue Mobilization L Erector Spinae Body Location R ES Mobilization Type Cross-Friction,Strumming, Sustained Pressure Intensity/Depth Moderate Body Position Prone R pec Mobilization Type Sustained Pressure,Trigger Point Release Intensity/Depth Moderate Body Position Supine Comments manual and pin with AAROM punch, IR/ER RUE PT-OP-T Assessment and Plan Start: 12/07/19 11:25 Freq: Status: Active Protocol: Document 01/20/20 07:32 SP (Rec: 01/20/20 08:20 SP [id number]) Physical Therapy Assessment Goals cervical stability Impairment 60s for flexion hold, 80s for extension hold but pain reported for both Shelter Goal (LTG) Pt will be able hold for both cervical flexion and extension position in supine > 80s without neck pain to improve cervical stability LTG Duration 8 weeks headache Impairment Pt has constant headache througout the day Short Term Goal (STG) Pt will have headache episodes no more than 3 times a week STG Duration 4 weeks Shelter Goal (LTG) pt will have headahce episodes no more than once a week. LTG Duration 8 weeks NDI Impairment pt scores 19 Monorail Helper Goal (LTG) pt will score <10 for NDL to improve her quality of life special test Impairment pt is +ve for UTTT, compression, foraminal compression, passive neck flexio Monorail Helper Goal (LTG) pt will be symptoms free for all special tests to improve her neural sensitivity for better quality of sleep. LTG Duration 8 weeks Three Impairment Strength Short Term Goal (STG) The patient will show 5/5 strength throughout her LEs. STG Duration 5 weeks Shelter Goal (LTG) The patient will be independent with a home exercise program. LTG Duration 10 weeks Two Impairment Activity tolerance Short Term Goal (STG) The patient will use active standing techniques to tube cleaning operator her kitchen for 30 minutes to cook dinnerwiht 4/10 pain or less. STG Duration 5 weeks Monorail Helper Goal (LTG) The patient will walk/hike for 1 hour with pain of 4/10 or less. LTG Duration 10 weeks One Impairment Lifting/ yardwork Short Term Goal (STG) The patient will perform a squat with good body mechanics to lift 20 pounds from the ground to waist height without an increase in baseline pain. STG Duration 5 weeks Shelter Goal (LTG) The patient will shovel for 30 minutes without an increase in baseline pain with good body mechanics. LTG Duration 10 weeks Assessment Summary Assessment Tx focused on posture and ease of movement and scap stabilization, introduced ulnar nerve glide and ball roll ES with good feedback. Physical Therapy Plan Frequency and Duration Frequency of Treatment 2x/Week Duration of Treatment 8 weeks Plan of Care Start Date 12/07/19 Plan of Care End Date 02/05/20 Therapeutic Interventions Therapeutic Interventions Home Exercise Program,Joint Mobilizations,Manual Therapy, Neuromuscular Re-education, Patient/Caregiver Education, Self-Care/Home Management,Soft Tissue Mobilization,Taping, Therapeutic Activities, Therapeutic Exercises Next Visit Focus/Plan Next Note Type Treatment Note Next Visit Plan Assess response to last tx. continue per PT POC.
--- NOTE | 2020-02-01 12:22 | PT.OPPOC ---
Physical, Occupational & Speech Therapy At [facility] Current Diagnoses Cervicalgia (02/01/20) Occipital neuralgia (02/01/20) Visit Care Team Role Provider Type Deb Ledesma PA-C Primary Care Provider Advanced Lpn Or Medical Assistant Specialty: Medical Address: [address] [place] [address], [id number] Email: Caryn Ewing DO Attending Provider Non-Staff Referring Provider Specialty: Psychiatry Address: [address] [place] [address], [id number] Email: Plan Of Care PT-OP-T Assessment and Plan Start: 12/07/19 11:25 Freq: Status: Active Protocol: Document 02/01/20 08:12 HH (Rec: 02/01/20 12:22 HH [id number]) Physical Therapy Assessment Goals cervical stability Impairment 60s for flexion hold, 80s for extension hold but pain reported for both Mcfp Goal (LTG) Pt will be able hold for both cervical flexion and extension position in supine > 80s without neck pain to improve cervical stability LTG Duration 8 weeks headache Impairment Pt has constant headache througout the day Short Term Goal (STG) 01/31 cont in progress pt has minor headache everyday . Pt will have headache episodes no more than 3 times a week STG Duration 4 weeks Paramedic Goal (LTG) pt will have headahce episodes no more than once a week. LTG Duration 8 weeks NDI Impairment pt scores 19 Paramedic Goal (LTG) pt will score <10 for NDL to improve her quality of life special test Impairment pt is +ve for UTTT, compression, foraminal compression, passive neck flexio Mcfp Goal (LTG) pt will be symptoms free for all special tests to improve her neural sensitivity for better quality of sleep. LTG Duration 8 weeks Three Impairment Strength Short Term Goal (STG) The patient will show 5/5 strength throughout her LEs. STG Duration 5 weeks Mcfp Goal (LTG) The patient will be independent with a home exercise program. LTG Duration 10 weeks Two Impairment Activity tolerance Short Term Goal (STG) The patient will use active standing techniques to package dye stand loader her kitchen for 30 minutes to cook dinnerwiht 4/10 pain or less. STG Duration 5 weeks Paramedic Goal (LTG) The patient will walk/hike for 1 hour with pain of 4/10 or less. 01/31 goal met pt reports pain no more than 2 /10 LTG Duration 10 weeks One Impairment Lifting/ yardwork Short Term Goal (STG) The patient will perform a squat with good body mechanics to lift 20 pounds from the ground to waist height without an increase in baseline pain. STG Duration 5 weeks Mcfp Goal (LTG) 01/31 cont in progress Pt needs frequent breaks for activities such as lifting and lawnmoning The patient will shovel for 30 minutes without an increase in baseline pain with good body mechanics. LTG Duration 10 weeks Assessment Summary Assessment Pt stated that she is 70% better with less pain and increased ROM, but she still has headache and difficulty returning to jogging. Pt has been progressed well and will begin to focus on cervical and trunk stability and sports specific training so pt can return to her baseline activities. POC will cont 1x / week x 4-6weeks Physical Therapy Plan Frequency and Duration Frequency of Treatment 1x/Week Duration of Treatment 6 weeks Plan of Care Start Date 02/01/20 Plan of Care End Date 03/17/20 Next Visit Focus/Plan Next Note Type Treatment Note Next Visit Plan Assess response to last tx. continue per PT POC. Cervical and trunk stability training Add UBE/ eliptical, stair climbing/ balance training with minimal plyometric. Plan of Care Dates Plan of Care Start Date 02/01/20 Plan of Care End Date 03/17/20 Electronically Signed by: Connor Box, PT 02/01/20 [id number] Please Sign and Return: I have reviewed this Plan of Care and certify that the skilled therapy services above are required to meet the patient?s needs. Physician Signature Date Printed Name and Credentials Clinical Instructor Signature Printed Name and Credentials
--- NOTE | 2020-02-01 12:22 | PT.OTN ---
Current Diagnoses Cervicalgia (02/01/20) Occipital neuralgia (02/01/20) Physical Therapy Treatment Note PT-OP-A Visit Information Start: 12/07/19 11:25 Freq: Status: Active Protocol: Document 02/01/20 08:12 HH (Rec: 02/01/20 12:22 [id number]) Out-Patient Physical Therapy Visit Information Visit Information Visit Type Treatment Note Visit Start Time 08:17 Visit Stop Time 09:00 Total Visit Minutes 43 Visit Number 01/26 Number of ENGINEERING TECHNICAL ANALYST Visits 0 PT-OP-B Current Condition Start: 12/07/19 11:25 Freq: Status: Active Protocol: Document 12/07/19 11:26 HH (Rec: 12/07/19 12:01 [email or web address]) Current Condition History of Current Condition Onset Date Feb, 2019 Current Complaints Tension headache, Neck pain, numbness in hands History of Current Condition Pt is a 39yo female sustained a concussion and head injury after a fall on the boat in February,. Pt hit the right side of the back of head but she did not seek for medical attention. Pt then experienced headache at the base of skull everyday and radiating pain to temporal region on the R side for 5-10 secs couple times a week, along with R neck pain. She also c/o frequent numbness/ shooting pain down to her 4th and 5th fingers that affects her sleep every night. The vibration of walking downhill, jumping motion tend to exacerbate her symptoms. She also experiences vertigo while looking down and tilting her head back. Pt had brain and neck MRI and both are unremarkable except there are some cervical DJD, centarl canal stenosis C6-c7 and forminal stenosis C5-6. Besides, pt also c/o mid to LBP primarily on the right side. 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 Prior Treatments and Tests Pt is currently going to massage therapist once a week and that tends to her symptoms Pt had brain and neck MRI and both are unremarkable except there are some cervical DJD, centarl canal stenosis C6-c7 and forminal stenosis C5-6. Treatment Goals Patient/Caregiver Goals 1. to be headache free everyday 2. to be able to sleep without tingling sensation/ numbness sensation to her fingers Personal Factors Other Personal Factors That May Effect Post concussion Therapy/Recovery possible TBI PT-OP-C Subjective Start: 12/07/19 11:25 Freq: Status: Active Protocol: Document 02/01/20 08:12 HH (Rec: 02/01/20 12:22 [id number]) OP-PT Subjective Patient Comments Patient Comments My neck is not as stiff anymore. I still have the upper neck headache and tingling and numbness on my 4th and 5 th finger. Patient Reported Progress Same PT-OP-F Manual Assessment Start: 12/07/19 11:25 Freq: Status: Active Protocol: Document 12/07/19 11:26 HH (Rec: 12/07/19 12:01 [email or web address]) Manual Assessments Soft Tissue Assessment Soft Tissue Mobility Assessment significant tenderness to pressure at bilateral suboccipital region, proximal R SCM, R levator scap referred pain pattern no noted . Joint Mobility Assessment Joint Mobility Assessment hypomobile with PA at C1-C4, and T1-T4 PT-OP-H Neuro Start: 12/07/19 11:25 Freq: Status: Active Protocol: Document 12/07/19 11:26 HH (Rec: 12/07/19 12:01 [email or web address]) Sensation Evaluation Gross Sensation Gross Sensation Right UE Impaired Sensation Description Paresthesia,Numbness Dermatome Impairments C6,C7,C8,T1 Comments Summary Comments pt reports dull feeling with c6-t1 dermatome on R side Deep Tendon Reflex & Clonus Assessment Deep Tendon Reflex Bilateral Brachioradialis Deep Tendon Reflex 2+ Normal Bilateral Tricep Deep Tendon Reflex 2+ Normal Bilateral Bicep Deep Tendon Reflex 2+ Normal PT-OP-K Range of Motion Start: 12/07/19 11:25 Freq: Status: Active Protocol: Document 12/07/19 11:26 HH (Rec: 12/07/19 12:01 [email or web address]) Cervical Spine Range of Motion Cervical Spine Active Percentage Testing Position Sitting Comments no limitation noted for AROM but pulling sensation noted at midback with cervical flexion pinching pain noted with cervical extension and cervical extension +rotation PT-OP-L Special Tests Start: 12/07/19 11:25 Freq: Status: Active Protocol: Document 12/07/19 11:26 HH (Rec: 12/07/19 12:01 [email or web address]) Special Tests Cervical Spine Special Tests compression Test Results +VE R Comments radiating numbness to 4 and 5 th fingers Foraminal Compression Test Results +ve B Comments pinching pain at C2-4 region Upper Limb Tension Test Test Results +VE R Comments both median and ulnar nerves Passive Neck Flexion Test Results +ve Comments pulling sensation at R midback Spurling's Test Test Results -ve PT-OP-M Strength Start: 12/07/19 11:25 Freq: Status: Active Protocol: Document 12/07/19 11:26 HH (Rec: 12/07/19 12:01 [email or web address]) Shoulder Strength Shoulder Manual Muscle Testing Right Flexion 5 Normal Extension 5 Normal Abduction (C5) 5 Normal Adduction 5 Normal Left Flexion 5 Normal Extension 5 Normal Abduction (C5) 5 Normal Adduction 5 Normal Elbow/Forearm Strength Elbow and Forearm Manual Muscle Testing Right Flexion (C6) 5 Normal Extension (C7) 5 Normal Left Flexion (C6) 5 Normal Extension (C7) 5 Normal PT-OP-Q Treatments Start: 12/07/19 11:25 Freq: Status: Active Protocol: Document 02/01/20 08:12 HH (Rec: 02/01/20 12:22 [id number]) Cardio Equipment Upper Body Ergometer (UBE) Duration (Minutes) 5 Seat Position 4 Other increased neck tension noted at upper neck Elliptical Duration (Minutes) 6 Resistance 4 Other cued UE low on handles more close chain to decrease reaching Therapeutic Exercises Sidelying Exercises open book Sidelying Exercise Name pt able to reach the opposite side of table Side bilateral Reps/Minutes 10 x2 Comments no pain noted Sitting Exercises seated flexion extension Sitting Exercise Name hand behind head Side bilateral Reps/Minutes 8 x2 Comments seated segmental flexion and extension. Nerve tension noted at mid back Standing Exercises cervical rotation with ball against wall Side bilateral Equipment Used ball against wall Reps/Minutes 8 x2 Comments for HEP, cues on chin tuck followed by cervicla rotation scap row Standing Exercise Name Neck stabilizatoin with rotation Side bilateral Equipment Used level 1 Reps/Minutes 10 x2 Comments full scap retraction for HEP PT-OP-T Assessment and Plan Start: 12/07/19 11:25 Freq: Status: Active Protocol: Document 02/01/20 08:12 HH (Rec: 02/01/20 12:22 [id number]) Physical Therapy Assessment Goals cervical stability Impairment 60s for flexion hold, 80s for extension hold but pain reported for both Publication Distributor Goal (LTG) Pt will be able hold for both cervical flexion and extension position in supine > 80s without neck pain to improve cervical stability LTG Duration 8 weeks headache Impairment Pt has constant headache througout the day Short Term Goal (STG) 01/31 cont in progress pt has minor headache everyday . Pt will have headache episodes no more than 3 times a week STG Duration 4 weeks Publication Distributor Goal (LTG) pt will have headahce episodes no more than once a week. LTG Duration 8 weeks NDI Impairment pt scores 19 Publication Distributor Goal (LTG) pt will score <10 for NDL to improve her quality of life special test Impairment pt is +ve for UTTT, compression, foraminal compression, passive neck flexio Publication Distributor Goal (LTG) pt will be symptoms free for all special tests to improve her neural sensitivity for better quality of sleep. LTG Duration 8 weeks Three Impairment Strength Short Term Goal (STG) The patient will show 5/5 strength throughout her LEs. STG Duration 5 weeks Publication Distributor Goal (LTG) The patient will be independent with a home exercise program. LTG Duration 10 weeks Two Impairment Activity tolerance Short Term Goal (STG) The patient will use active standing techniques to pipe smoker machine operator her kitchen for 30 minutes to cook dinnerwiht 4/10 pain or less. STG Duration 5 weeks Publication Distributor Goal (LTG) The patient will walk/hike for 1 hour with pain of 4/10 or less. 01/31 goal met pt reports pain no more than 2 /10 LTG Duration 10 weeks One Impairment Lifting/ yardwork Short Term Goal (STG) The patient will perform a squat with good body mechanics to lift 20 pounds from the ground to waist height without an increase in baseline pain. STG Duration 5 weeks Publication Distributor Goal (LTG) 01/31 cont in progress Pt needs frequent breaks for activities such as lifting and lawnmoning The patient will shovel for 30 minutes without an increase in baseline pain with good body mechanics. LTG Duration 10 weeks Assessment Summary Assessment Pt stated that she is 70% better with less pain and increased ROM, but she still has headache and difficulty returning to jogging. Pt has been progressed well and will begin to focus on cervical and trunk stability and sports specific training so pt can return to her baseline activities. POC will cont 1x / week x 4-6weeks Physical Therapy Plan Frequency and Duration Frequency of Treatment 1x/Week Duration of Treatment 6 weeks Plan of Care Start Date 02/01/20 Plan of Care End Date 03/17/20 Next Visit Focus/Plan Next Note Type Treatment Note Next Visit Plan Assess response to last tx. continue per PT POC. Cervical and trunk stability training Add UBE/ eliptical, stair climbing/ balance training with minimal plyometric.
--- NOTE | 2020-02-08 09:10 | PT.OTN ---
Current Diagnoses Cervicalgia (02/08/20) Occipital neuralgia (02/08/20) Physical Therapy Treatment Note PT-OP-A Visit Information Start: 12/07/19 11:25 Freq: Status: Active Protocol: Document 02/08/20 08:18 HH (Rec: 02/08/20 09:10 [id number]) Out-Patient Physical Therapy Visit Information Visit Information Visit Type Treatment Note Visit Note pt is 10 mins late Visit Start Time 08:25 Visit Stop Time 09:00 Total Visit Minutes 35 Visit Number 02/26 Number of CONFERENCE ASSISTANT Visits 0 PT-OP-B Current Condition Start: 12/07/19 11:25 Freq: Status: Active Protocol: Document 12/07/19 11:26 HH (Rec: 12/07/19 12:01 HH [email or web address]) Current Condition History of Current Condition Onset Date Feb, 2019 Current Complaints Tension headache, Neck pain, numbness in hands History of Current Condition Pt is a 39yo female sustained a concussion and head injury after a fall on the boat in February,. Pt hit the right side of the back of head but she did not seek for medical attention. Pt then experienced headache at the base of skull everyday and radiating pain to temporal region on the R side for 5-10 secs couple times a week, along with R neck pain. She also c/o frequent numbness/ shooting pain down to her 4th and 5th fingers that affects her sleep every night. The vibration of walking downhill, jumping motion tend to exacerbate her symptoms. She also experiences vertigo while looking down and tilting her head back. Pt had brain and neck MRI and both are unremarkable except there are some cervical DJD, centarl canal stenosis C6-c7 and forminal stenosis C5-6. Besides, pt also c/o mid to LBP primarily on the right side. 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 Prior Treatments and Tests Pt is currently going to massage therapist once a week and that tends to her symptoms Pt had brain and neck MRI and both are unremarkable except there are some cervical DJD, centarl canal stenosis C6-c7 and forminal stenosis C5-6. Treatment Goals Patient/Caregiver Goals 1. to be headache free everyday 2. to be able to sleep without tingling sensation/ numbness sensation to her fingers Personal Factors Other Personal Factors That May Effect Post concussion Therapy/Recovery possible TBI PT-OP-C Subjective Start: 12/07/19 11:25 Freq: Status: Active Protocol: Document 02/08/20 08:18 HH (Rec: 02/08/20 09:10 [id number]) OP-PT Subjective Patient Comments Patient Comments I feel pretty good but i still have some numbness to my R pinky finger during sleep but i dont get numbness on both side anymore. And my tension headache is getting less as well. I also have trouble. Patient Reported Progress Improving PT-OP-F Manual Assessment Start: 12/07/19 11:25 Freq: Status: Active Protocol: Document 12/07/19 11:26 HH (Rec: 12/07/19 12:01 [email or web address]) Manual Assessments Soft Tissue Assessment Soft Tissue Mobility Assessment significant tenderness to pressure at bilateral suboccipital region, proximal R SCM, R levator scap referred pain pattern no noted . Joint Mobility Assessment Joint Mobility Assessment hypomobile with PA at C1-C4, and T1-T4 PT-OP-H Neuro Start: 12/07/19 11:25 Freq: Status: Active Protocol: Document 12/07/19 11:26 HH (Rec: 12/07/19 12:01 [email or web address]) Sensation Evaluation Gross Sensation Gross Sensation Right UE Impaired Sensation Description Paresthesia,Numbness Dermatome Impairments C6,C7,C8,T1 Comments Summary Comments pt reports dull feeling with c6-t1 dermatome on R side Deep Tendon Reflex & Clonus Assessment Deep Tendon Reflex Bilateral Brachioradialis Deep Tendon Reflex 2+ Normal Bilateral Tricep Deep Tendon Reflex 2+ Normal Bilateral Bicep Deep Tendon Reflex 2+ Normal PT-OP-K Range of Motion Start: 12/07/19 11:25 Freq: Status: Active Protocol: Document 12/07/19 11:26 HH (Rec: 12/07/19 12:01 [email or web address]) Cervical Spine Range of Motion Cervical Spine Active Percentage Testing Position Sitting Comments no limitation noted for AROM but pulling sensation noted at midback with cervical flexion pinching pain noted with cervical extension and cervical extension +rotation PT-OP-L Special Tests Start: 12/07/19 11:25 Freq: Status: Active Protocol: Document 12/07/19 11:26 HH (Rec: 12/07/19 12:01 [email or web address]) Special Tests Cervical Spine Special Tests compression Test Results +VE R Comments radiating numbness to 4 and 5 th fingers Foraminal Compression Test Results +ve B Comments pinching pain at C2-4 region Upper Limb Tension Test Test Results +VE R Comments both median and ulnar nerves Passive Neck Flexion Test Results +ve Comments pulling sensation at R midback Spurling's Test Test Results -ve PT-OP-M Strength Start: 12/07/19 11:25 Freq: Status: Active Protocol: Document 12/07/19 11:26 HH (Rec: 12/07/19 12:01 [email or web address]) Shoulder Strength Shoulder Manual Muscle Testing Right Flexion 5 Normal Extension 5 Normal Abduction (C5) 5 Normal Adduction 5 Normal Left Flexion 5 Normal Extension 5 Normal Abduction (C5) 5 Normal Adduction 5 Normal Elbow/Forearm Strength Elbow and Forearm Manual Muscle Testing Right Flexion (C6) 5 Normal Extension (C7) 5 Normal Left Flexion (C6) 5 Normal Extension (C7) 5 Normal PT-OP-Q Treatments Start: 12/07/19 11:25 Freq: Status: Active Protocol: Document 02/08/20 08:18 HH (Rec: 02/08/20 09:10 [id number]) Cardio Equipment Upper Body Ergometer (UBE) Duration (Minutes) 5 Seat Position 4 Other R neck tension noted by patient Elliptical Duration (Minutes) 6 Resistance 4 Other discomfort at R SI Gym Equipment Shuttle Balance red Reps/Duration 6 mins Comments static w/o support staggered stance w/o support pt reports mental fatigue Therapeutic Exercises Standing Exercises step down Standing Exercise Name fwd step down from bosu ball Side bilateral Equipment Used bosu Reps/Minutes 8x2 Comments no discomfort noted step up Standing Exercise Name 12 inch box followed by bosu ball Side bilateral Reps/Minutes 12 x2 Comments no discomfort noted Manual Therapy Treatment Soft Tissue Mobilization suboccipital Mobilization Type Sustained Pressure,Trigger Point Release Intensity/Depth Moderate Body Position Supine Manual Techniques ulnar nerve glide Type R side Body Position Standing Comments for HEP review PT-OP-T Assessment and Plan Start: 12/07/19 11:25 Freq: Status: Active Protocol: Document 02/08/20 08:18 HH (Rec: 02/08/20 09:10 [id number]) Physical Therapy Assessment Goals cervical stability Impairment 60s for flexion hold, 80s for extension hold but pain reported for both Work Manager Goal (LTG) Pt will be able hold for both cervical flexion and extension position in supine > 80s without neck pain to improve cervical stability LTG Duration 8 weeks headache Impairment Pt has constant headache througout the day Short Term Goal (STG) 01/31 cont in progress pt has minor headache everyday . Pt will have headache episodes no more than 3 times a week STG Duration 4 weeks Detention Goal (LTG) pt will have headahce episodes no more than once a week. LTG Duration 8 weeks NDI Impairment pt scores 19 Detention Goal (LTG) pt will score <10 for NDL to improve her quality of life special test Impairment pt is +ve for UTTT, compression, foraminal compression, passive neck flexio Work Manager Goal (LTG) pt will be symptoms free for all special tests to improve her neural sensitivity for better quality of sleep. LTG Duration 8 weeks Assessment Summary Assessment Review HEP ulnar nerve glide today since pt still has tingling sensation at night time. Increase ex intensity today with balance training, step up and step down. Pt reports her attention is mostly on balancing which did not bother her neck at all. will cont POC Physical Therapy Plan Next Visit Focus/Plan Next Note Type Treatment Note Next Visit Plan Assess response to last tx. continue per PT POC. Cervical and trunk stability training Add UBE/ eliptical, stair climbing/ balance training with minimal plyometric.
--- NOTE | 2020-02-22 14:30 | PT.OTN ---
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 Pt hit the right side of the back of head but she did not seek for medical attention. Pt then experienced headache at the base of skull everyday and radiating pain to temporal region on the R side for 5-10 secs couple times a week, along with R neck pain. She also c/o frequent numbness/ shooting pain down to her 4th and 5th fingers that affects her sleep every night. The vibration of walking downhill, jumping motion tend to exacerbate her symptoms. She also experiences vertigo while looking down and tilting her head back. Pt had brain and neck MRI and both are unremarkable except there are some cervical DJD, centarl canal stenosis C6-c7 and forminal stenosis C5-6. Besides, pt also c/o mid to LBP primarily on the right side. 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 Prior Treatments and Tests Pt is currently going to massage therapist once a week and that tends to her symptoms Pt had brain and neck MRI and both are unremarkable except there are some cervical DJD, centarl canal stenosis C6-c7 and forminal stenosis C5-6. Treatment Goals Patient/Caregiver Goals 1. to be headache free everyday 2. to be able to sleep without tingling sensation/ numbness sensation to her fingers Personal Factors Other Personal Factors That May Effect Post concussion Therapy/Recovery possible TBI PT-OP-C Subjective Start: 12/07/19 11:25 Freq: Status: Active Protocol: Document 02/22/20 13:49 SP (Rec: 02/22/20 15:49 SP [id number]) OP-PT Subjective Patient Comments Patient Comments Pt stated necking doing well today. Had backpacked with little more than 25# pack with dad with low level discomfort posterior head when looking down but otherwise was pleased . Pt stated has been trying to focus on stability and not over thinking on balance thus tightening. PT-OP-F Manual Assessment Start: 12/07/19 11:25 Freq: Status: Active Protocol: Document 12/07/19 11:26 HH (Rec: 12/07/19 12:01 [email or web address]) Manual Assessments Soft Tissue Assessment Soft Tissue Mobility Assessment significant tenderness to pressure at bilateral suboccipital region, proximal R SCM, R levator scap referred pain pattern no noted . Joint Mobility Assessment Joint Mobility Assessment hypomobile with PA at C1-C4, and T1-T4 PT-OP-H Neuro Start: 12/07/19 11:25 Freq: Status: Active Protocol: Document 12/07/19 11:26 HH (Rec: 12/07/19 12:01 [email or web address]) Sensation Evaluation Gross Sensation Gross Sensation Right UE Impaired Sensation Description Paresthesia,Numbness Dermatome Impairments C6,C7,C8,T1 Comments Summary Comments pt reports dull feeling with c6-t1 dermatome on R side Deep Tendon Reflex & Clonus Assessment Deep Tendon Reflex Bilateral Brachioradialis Deep Tendon Reflex 2+ Normal Bilateral Tricep Deep Tendon Reflex 2+ Normal Bilateral Bicep Deep Tendon Reflex 2+ Normal PT-OP-K Range of Motion Start: 12/07/19 11:25 Freq: Status: Active Protocol: Document 12/07/19 11:26 HH (Rec: 12/07/19 12:01 [email or web address]) Cervical Spine Range of Motion Cervical Spine Active Percentage Testing Position Sitting Comments no limitation noted for AROM but pulling sensation noted at midback with cervical flexion pinching pain noted with cervical extension and cervical extension +rotation PT-OP-L Special Tests Start: 12/07/19 11:25 Freq: Status: Active Protocol: Document 12/07/19 11:26 HH (Rec: 12/07/19 12:01 [email or web address]) Special Tests Cervical Spine Special Tests compression Test Results +VE R Comments radiating numbness to 4 and 5 th fingers Foraminal Compression Test Results +ve B Comments pinching pain at C2-4 region Upper Limb Tension Test Test Results +VE R Comments both median and ulnar nerves Passive Neck Flexion Test Results +ve Comments pulling sensation at R midback Spurling's Test Test Results -ve PT-OP-M Strength Start: 12/07/19 11:25 Freq: Status: Active Protocol: Document 12/07/19 11:26 HH (Rec: 12/07/19 12:01 HH [email or web address]) Shoulder Strength Shoulder Manual Muscle Testing Right Flexion 5 Normal Extension 5 Normal Abduction (C5) 5 Normal Adduction 5 Normal Left Flexion 5 Normal Extension 5 Normal Abduction (C5) 5 Normal Adduction 5 Normal Elbow/Forearm Strength Elbow and Forearm Manual Muscle Testing Right Flexion (C6) 5 Normal Extension (C7) 5 Normal Left Flexion (C6) 5 Normal Extension (C7) 5 Normal PT-OP-Q Treatments Start: 12/07/19 11:25 Freq: Status: Active Protocol: Document 02/22/20 13:49 SP (Rec: 02/22/20 15:49 SP [id number]) Cardio Equipment Upper Body Ergometer (UBE) Duration (Minutes) 6 RPM 80 Seat Position 11 Other R neck tension noted by patient (65>90>85) alternate f /b 1 min each 6 min Elliptical Duration (Minutes) 6 Resistance 4 Other little discomfort R SI but went away w/ cue PPT/ core facilitation, hip hin Gym Equipment Shuttle Balance red Details WBOS, NBOS, stagger Reps/Duration 6 mins Comments static, head turns side/ vertical EO, EC Cuing for relaxed shlds and ankle assist stabilizing pt reports was alot better today, EC very hard required cuing for COG over NONI directioning glut/core facilitation Self-Care/Home Management Treatment Activities Self-Care/Home Management Activities Self STMs to R upper trap, rhomboid, posterior neck mms w / theracane and racquetball on wall: sustained and pin MWM of scap or head nods/turns with good result feedback PT-OP-T Assessment and Plan Start: 12/07/19 11:25 Freq: Status: Active Protocol: Document 02/22/20 13:49 SP (Rec: 02/22/20 15:49 SP [id number]) Physical Therapy Assessment Goals cervical stability Impairment 60s for flexion hold, 80s for extension hold but pain reported for both Rn Pacu Goal (LTG) Pt will be able hold for both cervical flexion and extension position in supine > 80s without neck pain to improve cervical stability LTG Duration 8 weeks headache Impairment Pt has constant headache througout the day Short Term Goal (STG) 01/31 cont in progress pt has minor headache everyday . Pt will have headache episodes no more than 3 times a week STG Duration 4 weeks Rn Pacu Goal (LTG) pt will have headahce episodes no more than once a week. LTG Duration 8 weeks NDI Impairment pt scores 19 Snf Goal (LTG) pt will score <10 for NDL to improve her quality of life special test Impairment pt is +ve for UTTT, compression, foraminal compression, passive neck flexio Snf Goal (LTG) pt will be symptoms free for all special tests to improve her neural sensitivity for better quality of sleep. LTG Duration 8 weeks Three Impairment Strength Short Term Goal (STG) The patient will show 5/5 strength throughout her LEs. STG Duration 5 weeks Snf Goal (LTG) The patient will be independent with a home exercise program. LTG Duration 10 weeks Two Impairment Activity tolerance Short Term Goal (STG) The patient will use active standing techniques to recycling director her kitchen for 30 minutes to cook dinnerwiht 4/10 pain or less. STG Duration 5 weeks Rn Pacu Goal (LTG) The patient will walk/hike for 1 hour with pain of 4/10 or less. 01/31 goal met pt reports pain no more than 2 /10 LTG Duration 10 weeks One Impairment Lifting/ yardwork Short Term Goal (STG) The patient will perform a squat with good body mechanics to lift 20 pounds from the ground to waist height without an increase in baseline pain. STG Duration 5 weeks Snf Goal (LTG) 01/31 cont in progress Pt needs frequent breaks for activities such as lifting and lawnmoning The patient will shovel for 30 minutes without an increase in baseline pain with good body mechanics. LTG Duration 10 weeks Assessment Summary Assessment Pt reports seeing big improvement since last tx with hiking and not as much neck pain. Improvement in stability on shuttle balance added increased head turns/EC cuing for post/trunk corrections, felt more confident. Added theracane and racquetball self massage for home with handout for use of theracane supra/ intrascapular, post neck areas sustained pressure and MWM this helped alot. Improved R SI little twinge than pain on ET with cuing for PPT and core facilitation with soft knees, holding lower reciprocating UE. Physical Therapy Plan Frequency and Duration Frequency of Treatment 1x/Week Duration of Treatment 6 weeks Plan of Care Start Date 02/01/20 Plan of Care End Date 03/17/20 Therapeutic Interventions Therapeutic Interventions Home Exercise Program,Joint Mobilizations,Manual Therapy, Neuromuscular Re-education, Patient/Caregiver Education, Self-Care/Home Management,Soft Tissue Mobilization,Taping, Therapeutic Activities, Therapeutic Exercises Next Visit Focus/Plan Next Note Type Treatment Note Next Visit Plan Assess response to last tx: shuttle balance, instruction self theracane,ball wall post neck/scap complex. Continue per PT POC. Cervical and trunk stability training Add: stair climbing/ balance training with minimal plyometric.
--- NOTE | 2020-03-09 09:26 | PT-OP ANOTE ---
Called pt via phone. Pt has not been able to attend appt d/t providing care for her relatives. Pt stated that she is doing but had an episode of backpain that causes some radiating pain down to her leg. She would like to cont therapy once her CG situation settled. will not d/c PT at this point.
--- NOTE | 2020-03-30 15:49 | PT.OPPOC ---
Physical, Occupational & Speech Therapy At Located Within [facility] Current Diagnoses Cervicalgia (03/30/20) Occipital neuralgia (03/30/20) Visit Care Team Role Provider Type Deb Ledesma PA-C Primary Care Provider Advanced Compliance Professional Specialty: Medical Address: [address] [place] [address], [id number] Email: Caryn Ewing DO Attending Provider Non-Staff Referring Provider Specialty: Psychiatry Address: [address] [place] [address], [id number] Email: Plan Of Care PT-OP-T Assessment and Plan Start: 12/07/19 11:25 Freq: Status: Active Protocol: Document 03/30/20 09:07 HH (Rec: 03/30/20 11:14 HH [id number]) Physical Therapy Assessment Goals R ankle strength Impairment Pt has overall decreased R ankle strength with foot slap during gait Churn Driller Goal (LTG) Pt will regain full 5/5 R ankle strength to improve her gait mechanics without foot slapping. LTG Duration 8 weeks special tests for lumbar Impairment +VE slump test Churn Driller Goal (LTG) pt will be symptoms free for slump test on R and piriformis stretch. cervical stability Impairment 60s for flexion hold, 80s for extension hold but pain reported for both Short Term Goal (STG) did not assess Churn Driller Goal (LTG) Pt will be able hold for both cervical flexion and extension position in supine > 80s without neck pain to improve cervical stability LTG Duration 8 weeks headache Impairment Pt has constant headache througout the day Short Term Goal (STG) 03/30 pt has minor tension headache at the back of the skull mildly everday. But radiating headache/ migraine less than once a week STG Duration 4 weeks Churn Driller Goal (LTG) pt will have headahce/ migraine episodes no more than once a week. LTG Duration 8 weeks NDI Impairment pt scores 19 Churn Driller Goal (LTG) pt will score <10 for NDL to improve her quality of life special test Impairment pt is +ve for UTTT, compression, foraminal compression, passive neck flexio Short Term Goal (STG) 9/24 goal met pt does not have neurological symptoms with cervical special tests but has difficulty sleeping. See A& P LTG Duration 8 weeks Progress Towards Goals Progress Towards Goals Progressing Toward Goals,Slow Progress due to Attendance Issues Assessment Summary Assessment Pt's last tx was 02/21 and she has been moving around and care giving her uncle. pt stated it has been stressful and has not been sleeping well . She also has a new onset of recurrent R LBP which is causing R foot slapping during gait. Assessment from today shows pt has lumbar radiculopathy on L5 region with decreased strength for R DF, big toe extension and + slump test, along with significant tenderness to piriformis. Besides, her cervical mobility is WFL with decreased headache episodes and neurological symptoms. tx will cont focus on improve her cervical shoulder muscle endurance and strength. In summary, pt was only treated for 10 visits for her closed head injury with good progress but she does have social factors that limits her to be consistent available for therapy appts for the past 2 months. However, Pt will cont benefit from skilled therapy to address her new onset of LBP and foot slap, along with cervical strength Physical Therapy Plan Frequency and Duration Frequency of Treatment 2x/wkx2,1x/wkx4 Duration of Treatment 8 weeks Plan of Care Start Date 03/30/20 Plan of Care End Date 05/29/20 Next Visit Focus/Plan Next Note Type Treatment Note Next Visit Plan cervical shoulder strengthening - against ball on wall, prone extension, pull down, OH press, scap pull lumbar= ankle DF, IV , EV, nerve glide, piriformis stretch. Plan of Care Dates Plan of Care Start Date 03/30/20 Plan of Care End Date 05/29/20 Electronically Signed by: Connor Box, PT 03/30/20 [id number] Please Sign and Return: I have reviewed this Plan of Care and certify that the skilled therapy services above are required to meet the patient?s needs. Physician Signature Date Printed Name and Credentials Clinical Instructor Signature Printed Name and Credentials
--- NOTE | 2020-03-30 15:49 | PT.OTN ---
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 Pt hit the right side of the back of head but she did not seek for medical attention. Pt then experienced headache at the base of skull everyday and radiating pain to temporal region on the R side for 5-10 secs couple times a week, along with R neck pain. She also c/o frequent numbness/ shooting pain down to her 4th and 5th fingers that affects her sleep every night. The vibration of walking downhill, jumping motion tend to exacerbate her symptoms. She also experiences vertigo while looking down and tilting her head back. Pt had brain and neck MRI and both are unremarkable except there are some cervical DJD, centarl canal stenosis C6-c7 and forminal stenosis C5-6. Besides, pt also c/o mid to LBP primarily on the right side. 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 Prior Treatments and Tests Pt is currently going to massage therapist once a week and that tends to her symptoms Pt had brain and neck MRI and both are unremarkable except there are some cervical DJD, centarl canal stenosis C6-c7 and forminal stenosis C5-6. Treatment Goals Patient/Caregiver Goals 1. to be headache free everyday 2. to be able to sleep without tingling sensation/ numbness sensation to her fingers Personal Factors Other Personal Factors That May Effect Post concussion Therapy/Recovery possible TBI PT-OP-C Subjective Start: 12/07/19 11:25 Freq: Status: Active Protocol: Document 03/30/20 09:07 HH (Rec: 03/30/20 11:14 [id number]) OP-PT Subjective Patient Comments Patient Comments I feel quite sore for my back and neck lately and i think its because mary been moving and sleeping with a lot of different beds. Mary been traveling around too. Mary been doing a lot of caregiving work for the past few weeks and its stressful and not sleeping well PT-OP-F Manual Assessment Start: 12/07/19 11:25 Freq: Status: Active Protocol: Document 12/07/19 11:26 HH (Rec: 12/07/19 12:01 [email or web address]) Manual Assessments Soft Tissue Assessment Soft Tissue Mobility Assessment significant tenderness to pressure at bilateral suboccipital region, proximal R SCM, R levator scap referred pain pattern no noted . Joint Mobility Assessment Joint Mobility Assessment hypomobile with PA at C1-C4, and T1-T4 PT-OP-H Neuro Start: 12/07/19 11:25 Freq: Status: Active Protocol: Document 12/07/19 11:26 HH (Rec: 12/07/19 12:01 [email or web address]) Sensation Evaluation Gross Sensation Gross Sensation Right UE Impaired Sensation Description Paresthesia,Numbness Dermatome Impairments C6,C7,C8,T1 Comments Summary Comments pt reports dull feeling with c6-t1 dermatome on R side Deep Tendon Reflex & Clonus Assessment Deep Tendon Reflex Bilateral Brachioradialis Deep Tendon Reflex 2+ Normal Bilateral Tricep Deep Tendon Reflex 2+ Normal Bilateral Bicep Deep Tendon Reflex 2+ Normal PT-OP-K Range of Motion Start: 12/07/19 11:25 Freq: Status: Active Protocol: Document 12/07/19 11:26 HH (Rec: 12/07/19 12:01 [email or web address]) Cervical Spine Range of Motion Cervical Spine Active Percentage Testing Position Sitting Comments no limitation noted for AROM but pulling sensation noted at midback with cervical flexion pinching pain noted with cervical extension and cervical extension +rotation PT-OP-L Special Tests Start: 12/07/19 11:25 Freq: Status: Active Protocol: Document 03/30/20 09:07 HH (Rec: 03/30/20 11:16 [id number]) Special Tests Cervical Spine Special Tests Foraminal Compression Test Results -ve Upper Limb Tension Test Test Results -ve Spurling's Test Test Results -ve Lumbar Spine Special Tests Slump Test Results +VE R Comments with DF, extended knee, trunk flexion and cervical flexion Hip Special Tests distraction Test Results +Ve R Comments relief on R PT-OP-M Strength Start: 12/07/19 11:25 Freq: Status: Active Protocol: Document 03/30/20 09:07 (Rec: 03/30/20 11:16 [id number]) Ankle/Foot Strength Ankle and Foot Manual Muscle Testing Left Dorsiflexion (L4) 5 Normal Plantarflexion (S1) 5 Normal Inversion 5 Normal Eversion (S1) 5 Normal Right Dorsiflexion (L4) 4- Good- Plantarflexion (S1) 4 Good Inversion 4 Good Eversion (S1) 4 Good Comments tenderness to pressure at anterior tib Toe Strength Toe Manual Muscle Testing Left Great Toe Flexion 5 Normal Extension 5 Normal Right Great Toe Flexion 4 Good Extension 3+ Fair+ PT-OP-Q Treatments Start: 12/07/19 11:25 Freq: Status: Active Protocol: Document 03/30/20 09:07 (Rec: 03/30/20 11:14 [id number]) Cardio Equipment Elliptical Duration (Minutes) 6 Resistance 4 Other soreness at neck and low back Therapeutic Exercises Supine Exercises piriformis stretch Side bilateral Reps/Minutes 15 sec hold x 5 Comments for HEP, tightness R>L tennis ball release Side right Comments for HEP, on piriformis Sitting Exercises seated nerve glide Sitting Exercise Name sciatic nerve glide for HEP Side right Comments LBP noted with knee extension and lumbar and cervical flexion Standing Exercises cervical rotation with ball against wall Side bilateral Reps/Minutes 5 x 2 Comments for HEP, cues on deep cervical flexor engagement Manual Therapy Treatment Soft Tissue Mobilization piriformis Body Location R side Mobilization Type Sustained Pressure,Trigger Point Release Intensity/Depth Moderate Body Position Prone Comments significant tenderness noted with pressure PT-OP-T Assessment and Plan Start: 12/07/19 11:25 Freq: Status: Active Protocol: Document 03/30/20 09:07 (Rec: 03/30/20 11:14 [id number]) Physical Therapy Assessment Goals R ankle strength Impairment Pt has overall decreased R ankle strength with foot slap during gait Streets And Buildings Decorator Goal (LTG) Pt will regain full 5/5 R ankle strength to improve her gait mechanics without foot slapping. LTG Duration 8 weeks special tests for lumbar Impairment +VE slump test [employer] Build[employer] Decorator Goal (LTG) pt will be symptoms free for slump test on R and piriformis stretch. cervical stability Impairment 60s for flexion hold, 80s for extension hold but pain reported for both Short Term Goal (STG) did not assess Streets And Buildings Decorator Goal (LTG) Pt will be able hold for both cervical flexion and extension position in supine > 80s without neck pain to improve cervical stability LTG Duration 8 weeks headache Impairment Pt has constant headache througout the day Short Term Goal (STG) 03/30 pt has minor tension headache at the back of the skull mildly everday. But radiating headache/ migraine less than once a week STG Duration 4 weeks Mcfp Goal (LTG) pt will have headahce/ migraine episodes no more than once a week. LTG Duration 8 weeks NDI Impairment pt scores 19 Mcfp Goal (LTG) pt will score <10 for NDL to improve her quality of life special test Impairment pt is +ve for UTTT, compression, foraminal compression, passive neck flexio Short Term Goal (STG) 03/30 goal met pt does not have neurological symptoms with cervical special tests but has difficulty sleeping. See A& P LTG Duration 8 weeks Progress Towards Goals Progress Towards Goals Progressing Toward Goals,Slow Progress due to Attendance Issues Assessment Summary Assessment Pt's last tx was 02/21 and she has been moving around and care giving her uncle. pt stated it has been stressful and has not been sleeping well . She also has a new onset of recurrent R LBP which is causing R foot slapping during gait. Assessment from today shows pt has lumbar radiculopathy on L5 region with decreased strength for R DF, big toe extension and + slump test, along with significant tenderness to piriformis. Besides, her cervical mobility is WFL with decreased headache episodes and neurological symptoms. tx will cont focus on improve her cervical shoulder muscle endurance and strength. In summary, pt was only treated for 10 visits for her closed head injury with good progress but she does have social factors that limits her to be consistent available for therapy appts for the past 2 months. However, Pt will cont benefit from skilled therapy to address her new onset of LBP and foot slap, along with cervical strength Physical Therapy Plan Frequency and Duration Frequency of Treatment 2x/wkx2,1x/wkx4 Duration of Treatment 8 weeks Plan of Care Start Date 03/30/20 Plan of Care End Date 05/29/20 Next Visit Focus/Plan Next Note Type Treatment Note Next Visit Plan cervical shoulder strengthening - against ball on wall, prone extension, pull down, OH press, scap pull lumbar= ankle DF, IV , EV, nerve glide, piriformis stretch.
--- NOTE | 2020-04-04 10:40 | PT.OTN ---
Current Diagnoses Cervicalgia (04/04/20) Occipital neuralgia (04/04/20) Physical Therapy Treatment Note PT-OP-A Visit Information Start: 12/07/19 11:25 Freq: Status: Active Protocol: Document 04/04/20 09:51 HH (Rec: 04/04/20 10:40 HH [id number]) Out-Patient Physical Therapy Visit Information Visit Information Visit Type Treatment Note Visit Note pt is 7 mins late Visit Start Time 09:52 Visit Stop Time 10:30 Total Visit Minutes 38 Visit Number 05/29 Number of COMPLIANCE ASSISTANT Visits 0 PT-OP-B Current Condition Start: 12/07/19 11:25 Freq: Status: Active Protocol: Document 12/07/19 11:26 HH (Rec: 12/07/19 12:01 HH [email or web address]) Current Condition History of Current Condition Onset Date Feb, 2019 Current Complaints Tension headache, Neck pain, numbness in hands History of Current Condition Pt is a 39yo female sustained a concussion and head injury after a fall on the boat in February,. Pt hit the right side of the back of head but she did not seek for medical attention. Pt then experienced headache at the base of skull everyday and radiating pain to temporal region on the R side for 5-10 secs couple times a week, along with R neck pain. She also c/o frequent numbness/ shooting pain down to her 4th and 5th fingers that affects her sleep every night. The vibration of walking downhill, jumping motion tend to exacerbate her symptoms. She also experiences vertigo while looking down and tilting her head back. Pt had brain and neck MRI and both are unremarkable except there are some cervical DJD, centarl canal stenosis C6-c7 and forminal stenosis C5-6. Besides, pt also c/o mid to LBP primarily on the right side. 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 Prior Treatments and Tests Pt is currently going to massage therapist once a week and that tends to her symptoms Pt had brain and neck MRI and both are unremarkable except there are some cervical DJD, centarl canal stenosis C6-c7 and forminal stenosis C5-6. Treatment Goals Patient/Caregiver Goals 1. to be headache free everyday 2. to be able to sleep without tingling sensation/ numbness sensation to her fingers Personal Factors Other Personal Factors That May Effect Post concussion Therapy/Recovery possible TBI PT-OP-C Subjective Start: 12/07/19 11:25 Freq: Status: Active Protocol: Document 04/04/20 09:51 HH (Rec: 04/04/20 10:40 [id number]) OP-PT Subjective Patient Comments Patient Comments My R leg seems to have less pain and so did the foot slapping i believe. My headache has been better but still feel stiff. Patient Reported Progress Improving PT-OP-F Manual Assessment Start: 12/07/19 11:25 Freq: Status: Active Protocol: Document 12/07/19 11:26 HH (Rec: 12/07/19 12:01 [email or web address]) Manual Assessments Soft Tissue Assessment Soft Tissue Mobility Assessment significant tenderness to pressure at bilateral suboccipital region, proximal R SCM, R levator scap referred pain pattern no noted . Joint Mobility Assessment Joint Mobility Assessment hypomobile with PA at C1-C4, and T1-T4 PT-OP-H Neuro Start: 12/07/19 11:25 Freq: Status: Active Protocol: Document 12/07/19 11:26 HH (Rec: 12/07/19 12:01 [email or web address]) Sensation Evaluation Gross Sensation Gross Sensation Right UE Impaired Sensation Description Paresthesia,Numbness Dermatome Impairments C6,C7,C8,T1 Comments Summary Comments pt reports dull feeling with c6-t1 dermatome on R side Deep Tendon Reflex & Clonus Assessment Deep Tendon Reflex Bilateral Brachioradialis Deep Tendon Reflex 2+ Normal Bilateral Tricep Deep Tendon Reflex 2+ Normal Bilateral Bicep Deep Tendon Reflex 2+ Normal PT-OP-K Range of Motion Start: 12/07/19 11:25 Freq: Status: Active Protocol: Document 12/07/19 11:26 HH (Rec: 12/07/19 12:01 [email or web address]) Cervical Spine Range of Motion Cervical Spine Active Percentage Testing Position Sitting Comments no limitation noted for AROM but pulling sensation noted at midback with cervical flexion pinching pain noted with cervical extension and cervical extension +rotation PT-OP-L Special Tests Start: 12/07/19 11:25 Freq: Status: Active Protocol: Document 03/30/20 09:07 HH (Rec: 03/30/20 11:16 [id number]) Special Tests Cervical Spine Special Tests Foraminal Compression Test Results -ve Upper Limb Tension Test Test Results -ve Spurling's Test Test Results -ve Lumbar Spine Special Tests Slump Test Results +VE R Comments with DF, extended knee, trunk flexion and cervical flexion Hip Special Tests distraction Test Results +Ve R Comments relief on R PT-OP-M Strength Start: 12/07/19 11:25 Freq: Status: Active Protocol: Document 03/30/20 09:07 (Rec: 03/30/20 11:16 [id number]) Ankle/Foot Strength Ankle and Foot Manual Muscle Testing Left Dorsiflexion (L4) 5 Normal Plantarflexion (S1) 5 Normal Inversion 5 Normal Eversion (S1) 5 Normal Right Dorsiflexion (L4) 4- Good- Plantarflexion (S1) 4 Good Inversion 4 Good Eversion (S1) 4 Good Comments tenderness to pressure at anterior tib Toe Strength Toe Manual Muscle Testing Left Great Toe Flexion 5 Normal Extension 5 Normal Right Great Toe Flexion 4 Good Extension 3+ Fair+ PT-OP-Q Treatments Start: 12/07/19 11:25 Freq: Status: Active Protocol: Document 04/04/20 09:51 (Rec: 04/04/20 10:40 [id number]) Therapeutic Exercises Supine Exercises sciatic nerve glide Supine Exercise Name with knee extension + DF Side right Reps/Minutes 8 x 2 Comments with PT assistance piriformis stretch Side bilateral Reps/Minutes 15 sec hold x 5 Comments tightness R>L Prone Exercises catcamel Side bilateral Reps/Minutes 15 reps Comments tightness noted at midback at the begining but subside after 10 reps Manual Therapy Treatment Soft Tissue Mobilization piriformis Body Location R side Mobilization Type Sustained Pressure,Trigger Point Release Intensity/Depth Moderate Body Position Prone Comments significant tenderness noted with pressure suboccipital Mobilization Type Sustained Pressure,Trigger Point Release Intensity/Depth Moderate Body Position Supine Comments significant tenderness noted at suboccipital and levator scap Joint Mobilizations hip distraction Direction inferior Grade III Body Position Supine Reps/Duration 8 sec hold x8 PT-OP-T Assessment and Plan Start: 12/07/19 11:25 Freq: Status: Active Protocol: Document 04/04/20 09:51 (Rec: 04/04/20 10:40 [id number]) Physical Therapy Assessment Goals R ankle strength Impairment Pt has overall decreased R ankle strength with foot slap during gait [facility] Goal (LTG) Pt will regain full 5/5 R ankle strength to improve her gait mechanics without foot slapping. LTG Duration 8 weeks special tests for lumbar Impairment +VE slump test Investment Recovery Technician Goal (LTG) pt will be symptoms free for slump test on R and piriformis stretch. cervical stability Impairment 60s for flexion hold, 80s for extension hold but pain reported for both Short Term Goal (STG) did not assess Investment Recovery Technician Goal (LTG) Pt will be able hold for both cervical flexion and extension position in supine > 80s without neck pain to improve cervical stability LTG Duration 8 weeks headache Impairment Pt has constant headache througout the day Short Term Goal (STG) 03/30 pt has minor tension headache at the back of the skull mildly everday. But radiating headache/ migraine less than once a week STG Duration 4 weeks Investment Recovery Technician Goal (LTG) pt will have headahce/ migraine episodes no more than once a week. LTG Duration 8 weeks NDI Impairment pt scores 19 Investment Recovery Technician Goal (LTG) pt will score <10 for NDL to improve her quality of life special test Impairment pt is +ve for UTTT, compression, foraminal compression, passive neck flexio Short Term Goal (STG) 03/30 goal met pt does not have neurological symptoms with cervical special tests but has difficulty sleeping. See A& P LTG Duration 8 weeks Assessment Summary Assessment pt came in with improved strength for R DF and big toe extension. She also noted less pain in general since last visit. Noticed pt has increased nerve tension at cervical and midback today during nerve glide but she felt better after manual therapy and cat camel. Physical Therapy Plan Frequency and Duration Frequency of Treatment 2x/wkx2,1x/wkx4 Duration of Treatment 8 weeks Plan of Care Start Date 03/30/20 Plan of Care End Date 05/29/20
--- NOTE | 2020-04-06 11:06 | PT.OTN ---
Current Diagnoses Cervicalgia (04/06/20) Occipital neuralgia (04/06/20) Physical Therapy Treatment Note PT-OP-A Visit Information Start: 12/07/19 11:25 Freq: Status: Active Protocol: Document 04/06/20 09:08 HH (Rec: 04/06/20 11:05 [id number]) Out-Patient Physical Therapy Visit Information Visit Information Visit Type Treatment Note Visit Start Time 09:01 Visit Stop Time 09:45 Total Visit Minutes 44 Visit Number 05/29 Number of ENDLESS TRACK VEHICLE SUPERVISOR Visits 0 PT-OP-B Current Condition Start: 12/07/19 11:25 Freq: Status: Active Protocol: Document 12/07/19 11:26 HH (Rec: 12/07/19 12:01 HH [email or web address]) Current Condition History of Current Condition Onset Date Feb, 2019 Current Complaints Tension headache, Neck pain, numbness in hands History of Current Condition Pt is a 39yo female sustained a concussion and head injury after a fall on the boat in February,. Pt hit the right side of the back of head but she did not seek for medical attention. Pt then experienced headache at the base of skull everyday and radiating pain to temporal region on the R side for 5-10 secs couple times a week, along with R neck pain. She also c/o frequent numbness/ shooting pain down to her 4th and 5th fingers that affects her sleep every night. The vibration of walking downhill, jumping motion tend to exacerbate her symptoms. She also experiences vertigo while looking down and tilting her head back. Pt had brain and neck MRI and both are unremarkable except there are some cervical DJD, centarl canal stenosis C6-c7 and forminal stenosis C5-6. Besides, pt also c/o mid to LBP primarily on the right side. 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 Prior Treatments and Tests Pt is currently going to massage therapist once a week and that tends to her symptoms Pt had brain and neck MRI and both are unremarkable except there are some cervical DJD, centarl canal stenosis C6-c7 and forminal stenosis C5-6. Treatment Goals Patient/Caregiver Goals 1. to be headache free everyday 2. to be able to sleep without tingling sensation/ numbness sensation to her fingers Personal Factors Other Personal Factors That May Effect Post concussion Therapy/Recovery possible TBI PT-OP-C Subjective Start: 12/07/19 11:25 Freq: Status: Active Protocol: Document 04/06/20 09:08 HH (Rec: 04/06/20 11:05 [id number]) OP-PT Subjective Patient Comments Patient Comments My leg pain has gotten better but still has some foot weakness. My neck is doing okay so far. Patient Reported Progress Improving PT-OP-F Manual Assessment Start: 12/07/19 11:25 Freq: Status: Active Protocol: Document 12/07/19 11:26 HH (Rec: 12/07/19 12:01 [email or web address]) Manual Assessments Soft Tissue Assessment Soft Tissue Mobility Assessment significant tenderness to pressure at bilateral suboccipital region, proximal R SCM, R levator scap referred pain pattern no noted . Joint Mobility Assessment Joint Mobility Assessment hypomobile with PA at C1-C4, and T1-T4 PT-OP-H Neuro Start: 12/07/19 11:25 Freq: Status: Active Protocol: Document 12/07/19 11:26 HH (Rec: 12/07/19 12:01 [email or web address]) Sensation Evaluation Gross Sensation Gross Sensation Right UE Impaired Sensation Description Paresthesia,Numbness Dermatome Impairments C6,C7,C8,T1 Comments Summary Comments pt reports dull feeling with c6-t1 dermatome on R side Deep Tendon Reflex & Clonus Assessment Deep Tendon Reflex Bilateral Brachioradialis Deep Tendon Reflex 2+ Normal Bilateral Tricep Deep Tendon Reflex 2+ Normal Bilateral Bicep Deep Tendon Reflex 2+ Normal PT-OP-K Range of Motion Start: 12/07/19 11:25 Freq: Status: Active Protocol: Document 12/07/19 11:26 HH (Rec: 12/07/19 12:01 [email or web address]) Cervical Spine Range of Motion Cervical Spine Active Percentage Testing Position Sitting Comments no limitation noted for AROM but pulling sensation noted at midback with cervical flexion pinching pain noted with cervical extension and cervical extension +rotation PT-OP-L Special Tests Start: 12/07/19 11:25 Freq: Status: Active Protocol: Document 03/30/20 09:07 (Rec: 03/30/20 11:16 [id number]) Special Tests Cervical Spine Special Tests Foraminal Compression Test Results -ve Upper Limb Tension Test Test Results -ve Spurling's Test Test Results -ve Lumbar Spine Special Tests Slump Test Results +VE R Comments with DF, extended knee, trunk flexion and cervical flexion Hip Special Tests distraction Test Results +Ve R Comments relief on R PT-OP-M Strength Start: 12/07/19 11:25 Freq: Status: Active Protocol: Document 03/30/20 09:07 (Rec: 03/30/20 11:16 [id number]) Ankle/Foot Strength Ankle and Foot Manual Muscle Testing Left Dorsiflexion (L4) 5 Normal Plantarflexion (S1) 5 Normal Inversion 5 Normal Eversion (S1) 5 Normal Right Dorsiflexion (L4) 4- Good- Plantarflexion (S1) 4 Good Inversion 4 Good Eversion (S1) 4 Good Comments tenderness to pressure at anterior tib Toe Strength Toe Manual Muscle Testing Left Great Toe Flexion 5 Normal Extension 5 Normal Right Great Toe Flexion 4 Good Extension 3+ Fair+ PT-OP-Q Treatments Start: 12/07/19 11:25 Freq: Status: Active Protocol: Document 04/06/20 09:08 (Rec: 04/06/20 11:05 [id number]) Cardio Equipment Elliptical Duration (Minutes) 6 Resistance 5 Therapeutic Exercises Supine Exercises sciatic nerve glide Supine Exercise Name with knee extension + DF Side right Reps/Minutes 8 x 2 Comments with PT assistance Prone Exercises prone T Prone Exercise Name relaxed neck, with focus on shoulder engagement Side bilateral Equipment Used on red therapy ball Reps/Minutes 10 x2 prone extension Prone Exercise Name hands behind head, stomach on top of therapy ball Side bilateral Equipment Used red therapy ball Reps/Minutes 10 x2 catcamel Side bilateral Reps/Minutes 15 reps Comments tightness noted at midback at the begining but subside after 10 reps Sidelying Exercises open book Sidelying Exercise Name with FADDIR stretch at the same time Side bilateral Reps/Minutes 10 x1 Standing Exercises chin tuck Standing Exercise Name against ball Reps/Minutes 8 x2 Comments e cervical rotation with ball against wall Side bilateral Reps/Minutes 5 x 2 Comments cues on deep cervical flexor engagement Other Exercises lunge rotation Other Exercise Name open book position Side bilateral Reps/Minutes 10 x2 Manual Therapy Treatment Soft Tissue Mobilization piriformis Body Location R side Mobilization Type Sustained Pressure,Trigger Point Release Intensity/Depth Moderate Body Position Prone Comments significant tenderness noted with pressure suboccipital Mobilization Type Sustained Pressure,Trigger Point Release Intensity/Depth Moderate Body Position Supine Comments significant tenderness noted at suboccipital and levator scap PT-OP-T Assessment and Plan Start: 12/07/19 11:25 Freq: Status: Active Protocol: Document 04/06/20 09:08 (Rec: 04/06/20 11:05 [id number]) Physical Therapy Assessment Goals R ankle strength Impairment Pt has overall decreased R ankle strength with foot slap during gait Marketing Planner Goal (LTG) Pt will regain full 5/5 R ankle strength to improve her gait mechanics without foot slapping. LTG Duration 8 weeks special tests for lumbar Impairment +VE slump test Marketing Planner Goal (LTG) pt will be symptoms free for slump test on R and piriformis stretch. cervical stability Impairment 60s for flexion hold, 80s for extension hold but pain reported for both Short Term Goal (STG) did not assess Marketing Planner Goal (LTG) Pt will be able hold for both cervical flexion and extension position in supine > 80s without neck pain to improve cervical stability LTG Duration 8 weeks headache Impairment Pt has constant headache througout the day Short Term Goal (STG) 03/30 pt has minor tension headache at the back of the skull mildly everday. But radiating headache/ migraine less than once a week STG Duration 4 weeks Marketing Planner Goal (LTG) pt will have headahce/ migraine episodes no more than once a week. LTG Duration 8 weeks NDI Impairment pt scores 19 Fdc Goal (LTG) pt will score <10 for NDL to improve her quality of life special test Impairment pt is +ve for UTTT, compression, foraminal compression, passive neck flexio Short Term Goal (STG) 03/30 goal met pt does not have neurological symptoms with cervical special tests but has difficulty sleeping. See A& P LTG Duration 8 weeks Assessment Summary Assessment Started with general body movements for flexibility and progressed to isolated shoulder and cervical strengthening therex. Pt tends to engage R upper trap during shoulder ex. Will cont POC and add balancing ex as well. Physical Therapy Plan Frequency and Duration Frequency of Treatment 2x/wkx2,1x/wkx4 Duration of Treatment 8 weeks Plan of Care Start Date 03/30/20 Plan of Care End Date 05/29/20 Next Visit Focus/Plan Next Note Type Treatment Note Next Visit Plan isolated cervical shoulder strengthening - against ball on wall, prone extension, pull down, OH press, scap pull lumbar= ankle DF, IV , EV, nerve glide, piriformis stretch, SL squat and step up, eccentric strengthening for impactful activtiies.
--- NOTE | 2020-04-11 11:10 | PT.OTN ---
Current Diagnoses Cervicalgia (04/11/20) Occipital neuralgia (04/11/20) Physical Therapy Treatment Note PT-OP-A Visit Information Start: 12/07/19 11:25 Freq: Status: Active Protocol: Document 04/11/20 10:55 HH (Rec: 04/11/20 11:09 [id number]) Out-Patient Physical Therapy Visit Information Visit Information Visit Type Treatment Note Visit Start Time 09:50 Visit Stop Time 10:40 Total Visit Minutes 50 Visit Number 06/28 Number of DOCK LOADER Visits 0 PT-OP-B Current Condition Start: 12/07/19 11:25 Freq: Status: Active Protocol: Document 12/07/19 11:26 HH (Rec: 12/07/19 12:01 HH [email or web address]) Current Condition History of Current Condition Onset Date Feb, 2019 Current Complaints Tension headache, Neck pain, numbness in hands History of Current Condition Pt is a 39yo female sustained a concussion and head injury after a fall on the boat in February,. Pt hit the right side of the back of head but she did not seek for medical attention. Pt then experienced headache at the base of skull everyday and radiating pain to temporal region on the R side for 5-10 secs couple times a week, along with R neck pain. She also c/o frequent numbness/ shooting pain down to her 4th and 5th fingers that affects her sleep every night. The vibration of walking downhill, jumping motion tend to exacerbate her symptoms. She also experiences vertigo while looking down and tilting her head back. Pt had brain and neck MRI and both are unremarkable except there are some cervical DJD, centarl canal stenosis C6-c7 and forminal stenosis C5-6. Besides, pt also c/o mid to LBP primarily on the right side. 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 Prior Treatments and Tests Pt is currently going to massage therapist once a week and that tends to her symptoms Pt had brain and neck MRI and both are unremarkable except there are some cervical DJD, centarl canal stenosis C6-c7 and forminal stenosis C5-6. Treatment Goals Patient/Caregiver Goals 1. to be headache free everyday 2. to be able to sleep without tingling sensation/ numbness sensation to her fingers Personal Factors Other Personal Factors That May Effect Post concussion Therapy/Recovery possible TBI PT-OP-C Subjective Start: 12/07/19 11:25 Freq: Status: Active Protocol: Document 04/11/20 10:55 HH (Rec: 04/11/20 11:09 [id number]) OP-PT Subjective Patient Comments Patient Comments I did a 8 hr hike this weekend and my neck was sore going down hill. My R ankle did get sore too but they both recovered the next day. Im getting better and my foot slap is less. Patient Reported Progress Improving PT-OP-F Manual Assessment Start: 12/07/19 11:25 Freq: Status: Active Protocol: Document 12/07/19 11:26 HH (Rec: 12/07/19 12:01 [email or web address]) Manual Assessments Soft Tissue Assessment Soft Tissue Mobility Assessment significant tenderness to pressure at bilateral suboccipital region, proximal R SCM, R levator scap referred pain pattern no noted . Joint Mobility Assessment Joint Mobility Assessment hypomobile with PA at C1-C4, and T1-T4 PT-OP-H Neuro Start: 12/07/19 11:25 Freq: Status: Active Protocol: Document 12/07/19 11:26 HH (Rec: 12/07/19 12:01 [email or web address]) Sensation Evaluation Gross Sensation Gross Sensation Right UE Impaired Sensation Description Paresthesia,Numbness Dermatome Impairments C6,C7,C8,T1 Comments Summary Comments pt reports dull feeling with c6-t1 dermatome on R side Deep Tendon Reflex & Clonus Assessment Deep Tendon Reflex Bilateral Brachioradialis Deep Tendon Reflex 2+ Normal Bilateral Tricep Deep Tendon Reflex 2+ Normal Bilateral Bicep Deep Tendon Reflex 2+ Normal PT-OP-K Range of Motion Start: 12/07/19 11:25 Freq: Status: Active Protocol: Document 12/07/19 11:26 HH (Rec: 12/07/19 12:01 [email or web address]) Cervical Spine Range of Motion Cervical Spine Active Percentage Testing Position Sitting Comments no limitation noted for AROM but pulling sensation noted at midback with cervical flexion pinching pain noted with cervical extension and cervical extension +rotation PT-OP-L Special Tests Start: 12/07/19 11:25 Freq: Status: Active Protocol: Document 03/30/20 09:07 HH (Rec: 03/30/20 11:16 [id number]) Special Tests Cervical Spine Special Tests Foraminal Compression Test Results -ve Upper Limb Tension Test Test Results -ve Spurling's Test Test Results -ve Lumbar Spine Special Tests Slump Test Results +VE R Comments with DF, extended knee, trunk flexion and cervical flexion Hip Special Tests distraction Test Results +Ve R Comments relief on R PT-OP-M Strength Start: 12/07/19 11:25 Freq: Status: Active Protocol: Document 03/30/20 09:07 (Rec: 03/30/20 11:16 [id number]) Ankle/Foot Strength Ankle and Foot Manual Muscle Testing Left Dorsiflexion (L4) 5 Normal Plantarflexion (S1) 5 Normal Inversion 5 Normal Eversion (S1) 5 Normal Right Dorsiflexion (L4) 4- Good- Plantarflexion (S1) 4 Good Inversion 4 Good Eversion (S1) 4 Good Comments tenderness to pressure at anterior tib Toe Strength Toe Manual Muscle Testing Left Great Toe Flexion 5 Normal Extension 5 Normal Right Great Toe Flexion 4 Good Extension 3+ Fair+ PT-OP-Q Treatments Start: 12/07/19 11:25 Freq: Status: Active Protocol: Document 04/11/20 10:55 HH (Rec: 04/11/20 11:09 [id number]) Therapeutic Exercises Prone Exercises prone extension Prone Exercise Name hands behind head, stomach on top of therapy ball Side bilateral Equipment Used red therapy ball Reps/Minutes 10 x2 catcamel Side bilateral Reps/Minutes 15 reps Comments no discomfort Standing Exercises step over bosu ball Standing Exercise Name pt step up and down Reps/Minutes 8x 2 Comments cues on quiet landing, no neck discomfort noted. step over Standing Exercise Name 10 inch box, pt step up and down Reps/Minutes 8 x2 Comments cues on quiet landing, no neck discomfort noted. shoulder pull apart Standing Exercise Name for scap retraction, no neck movement Side bilateral Reps/Minutes 8 x2 cervical rotation with ball against wall Side bilateral Reps/Minutes 5 x 2 Comments cues on deep cervical flexor engagement Other Exercises world greatest stretch Side bilateral Reps/Minutes 10 x 2 lunge rotation Other Exercise Name open book position Side bilateral Reps/Minutes 10 x2 Manual Therapy Treatment Soft Tissue Mobilization SCM, upper trap Body Location R trap, levator scap Mobilization Type Sustained Pressure,Trigger Point Release Intensity/Depth Moderate Body Position Sitting Manual Techniques ulnar nerve glide Body Location R neck Body Position Sitting Reps/Duration 5 times Comments with cervical lateral flexion R is more sensitive than L Neuro Re-Education Treatment Balance Activities SLS Details blue foam Reps/Duration 2 mins B balance discs Details blue and yellow Reps/Duration 15 mins Comments static stance x 5 mins then with eyes closed x 1 min then with static stance with PT perturbation noticed pt has delay reaction to perturbation then with stagger stance. PT-OP-T Assessment and Plan Start: 12/07/19 11:25 Freq: Status: Active Protocol: Document 04/11/20 10:55 HH (Rec: 04/11/20 11:09 HH [id number]) Physical Therapy Assessment Goals R ankle strength Impairment Pt has overall decreased R ankle strength with foot slap during gait Senior Care Goal (LTG) Pt will regain full 5/5 R ankle strength to improve her gait mechanics without foot slapping. LTG Duration 8 weeks special tests for lumbar Impairment +VE slump test Arts And Crafts Teacher Goal (LTG) pt will be symptoms free for slump test on R and piriformis stretch. cervical stability Impairment 60s for flexion hold, 80s for extension hold but pain reported for both Short Term Goal (STG) did not assess Senior Care Goal (LTG) Pt will be able hold for both cervical flexion and extension position in supine > 80s without neck pain to improve cervical stability LTG Duration 8 weeks headache Impairment Pt has constant headache througout the day Short Term Goal (STG) 03/30 pt has minor tension headache at the back of the skull mildly everday. But radiating headache/ migraine less than once a week STG Duration 4 weeks Arts And Crafts Teacher Goal (LTG) pt will have headahce/ migraine episodes no more than once a week. LTG Duration 8 weeks NDI Impairment pt scores 19 Arts And Crafts Teacher Goal (LTG) pt will score <10 for NDL to improve her quality of life special test Impairment pt is +ve for UTTT, compression, foraminal compression, passive neck flexio Short Term Goal (STG) 03/30 goal met pt does not have neurological symptoms with cervical special tests but has difficulty sleeping. See A& P LTG Duration 8 weeks Assessment Summary Assessment Pt shows good progress but still has limited activity tolerance and pain during impactful landing. Tx focused on balance training (noticed pt has delay reaction to perturbation) and pylometric ex with soft landing focused. Will cont POC Physical Therapy Plan Next Visit Focus/Plan Next Note Type Treatment Note Next Visit Plan isolated cervical shoulder strengthening - against ball on wall, prone extension, pull down, OH press, scap pull lumbar= ankle DF, IV , EV, nerve glide, piriformis stretch, SL squat and step up, eccentric strengthening for impactful activtiies.
--- NOTE | 2020-04-13 10:12 | PT.OTN ---
Current Diagnoses Cervicalgia (04/13/20) Occipital neuralgia (04/13/20) Physical Therapy Treatment Note PT-OP-A Visit Information Start: 12/07/19 11:25 Freq: Status: Active Protocol: Document 04/13/20 09:56 HH (Rec: 04/13/20 10:11 HH [email or web address]) Out-Patient Physical Therapy Visit Information Visit Information Visit Type Treatment Note Visit Start Time 08:18 Visit Stop Time 09:00 Total Visit Minutes 42 Visit Number Number of DIE SINKER APPRENTICE Visits 0 PT-OP-B Current Condition Start: 12/07/19 11:25 Freq: Status: Active Protocol: Document 12/07/19 11:26 HH (Rec: 12/07/19 12:01 HH [email or web address]) Current Condition History of Current Condition Onset Date Feb, 2019 Current Complaints Tension headache, Neck pain, numbness in hands History of Current Condition Pt is a 39yo female sustained a concussion and head injury after a fall on the boat in February,. Pt hit the right side of the back of head but she did not seek for medical attention. Pt then experienced headache at the base of skull everyday and radiating pain to temporal region on the R side for 5-10 secs couple times a week, along with R neck pain. She also c/o frequent numbness/ shooting pain down to her 4th and 5th fingers that affects her sleep every night. The vibration of walking downhill, jumping motion tend to exacerbate her symptoms. She also experiences vertigo while looking down and tilting her head back. Pt had brain and neck MRI and both are unremarkable except there are some cervical DJD, centarl canal stenosis C6-c7 and forminal stenosis C5-6. Besides, pt also c/o mid to LBP primarily on the right side. 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 Prior Treatments and Tests Pt is currently going to massage therapist once a week and that tends to her symptoms Pt had brain and neck MRI and both are unremarkable except there are some cervical DJD, centarl canal stenosis C6-c7 and forminal stenosis C5-6. Treatment Goals Patient/Caregiver Goals 1. to be headache free everyday 2. to be able to sleep without tingling sensation/ numbness sensation to her fingers Personal Factors Other Personal Factors That May Effect Post concussion Therapy/Recovery possible TBI PT-OP-C Subjective Start: 12/07/19 11:25 Freq: Status: Active Protocol: Document 04/13/20 09:56 HH (Rec: 04/13/20 10:11 [email or web address]) OP-PT Subjective Patient Comments Patient Comments I got some lateral leg pain on my R side this morning and some soreness at the midback and R shoulder. Patient Reported Progress Same PT-OP-F Manual Assessment Start: 12/07/19 11:25 Freq: Status: Active Protocol: Document 12/07/19 11:26 HH (Rec: 12/07/19 12:01 [email or web address]) Manual Assessments Soft Tissue Assessment Soft Tissue Mobility Assessment significant tenderness to pressure at bilateral suboccipital region, proximal R SCM, R levator scap referred pain pattern no noted . Joint Mobility Assessment Joint Mobility Assessment hypomobile with PA at C1-C4, and T1-T4 PT-OP-H Neuro Start: 12/07/19 11:25 Freq: Status: Active Protocol: Document 12/07/19 11:26 HH (Rec: 12/07/19 12:01 [email or web address]) Sensation Evaluation Gross Sensation Gross Sensation Right UE Impaired Sensation Description Paresthesia,Numbness Dermatome Impairments C6,C7,C8,T1 Comments Summary Comments pt reports dull feeling with c6-t1 dermatome on R side Deep Tendon Reflex & Clonus Assessment Deep Tendon Reflex Bilateral Brachioradialis Deep Tendon Reflex 2+ Normal Bilateral Tricep Deep Tendon Reflex 2+ Normal Bilateral Bicep Deep Tendon Reflex 2+ Normal PT-OP-K Range of Motion Start: 12/07/19 11:25 Freq: Status: Active Protocol: Document 12/07/19 11:26 HH (Rec: 12/07/19 12:01 [email or web address]) Cervical Spine Range of Motion Cervical Spine Active Percentage Testing Position Sitting Comments no limitation noted for AROM but pulling sensation noted at midback with cervical flexion pinching pain noted with cervical extension and cervical extension +rotation PT-OP-L Special Tests Start: 12/07/19 11:25 Freq: Status: Active Protocol: Document 03/30/20 09:07 HH (Rec: 03/30/20 11:16 [id number]) Special Tests Cervical Spine Special Tests Foraminal Compression Test Results -ve Upper Limb Tension Test Test Results -ve Spurling's Test Test Results -ve Lumbar Spine Special Tests Slump Test Results +VE R Comments with DF, extended knee, trunk flexion and cervical flexion Hip Special Tests distraction Test Results +Ve R Comments relief on R PT-OP-M Strength Start: 12/07/19 11:25 Freq: Status: Active Protocol: Document 03/30/20 09:07 (Rec: 03/30/20 11:16 [id number]) Ankle/Foot Strength Ankle and Foot Manual Muscle Testing Left Dorsiflexion (L4) 5 Normal Plantarflexion (S1) 5 Normal Inversion 5 Normal Eversion (S1) 5 Normal Right Dorsiflexion (L4) 4- Good- Plantarflexion (S1) 4 Good Inversion 4 Good Eversion (S1) 4 Good Comments tenderness to pressure at anterior tib Toe Strength Toe Manual Muscle Testing Left Great Toe Flexion 5 Normal Extension 5 Normal Right Great Toe Flexion 4 Good Extension 3+ Fair+ PT-OP-Q Treatments Start: 12/07/19 11:25 Freq: Status: Active Protocol: Document 04/13/20 09:56 (Rec: 04/13/20 10:11 [email or web address]) Cardio Equipment Elliptical Duration (Minutes) 5 Resistance 5 Other c/o R scap tightness with hand placement on top of the bar Therapeutic Exercises Supine Exercises sciatic nerve glide Supine Exercise Name with knee extension + DF Side right Reps/Minutes 8 x 2 Comments with PT assistance Manual Therapy Treatment Soft Tissue Mobilization RTC Body Location infraspinatus, teres minor Mobilization Type Sustained Pressure,Trigger Point Release Intensity/Depth Deep Body Position Sidelying Comments pt c/o refer pain to top and anterior aspect of the R shoulder initially but subsided after manual therapy. piriformis Body Location R side and SIJ Mobilization Type Sustained Pressure,Trigger Point Release Intensity/Depth Moderate Body Position Prone Comments significant tenderness noted with pressure today SCM, upper trap Body Location R trap, levator scap Mobilization Type Sustained Pressure,Trigger Point Release Intensity/Depth Moderate Body Position Sitting Joint Mobilizations SI joint Direction SI joint distraction Grade III Body Position Sidelying Reps/Duration 2 mins Comments thread the needle position, pt reports relief at R SI joint hip distraction Direction inferior Grade III Body Position Supine Reps/Duration 10 sec x 4 Manual Techniques isotonic stabilization Type R scapular Body Position Sidelying Reps/Duration 4 mins Comments against PT resistance. Needed tactile cue to facilitate scap retraction rhythmic initiation Type R scapular Body Position Sidelying Reps/Duration 8 mins Comments scap elevation, depression, protraction and retraction. Noticed pt has muscle guarding initially but improved after repetitions. Neuro Re-Education Treatment Balance Activities stagger stance Details blue and yellow Reps/Duration 4 mins Comments improve reactive balance noted today. no discomfort B balance discs Details blue and yellow Reps/Duration 8 mins Comments static stance x 2 mins then with static stance with PT perturbation noticed pt has improved reactive balance to PT perturbation today PT-OP-T Assessment and Plan Start: 12/07/19 11:25 Freq: Status: Active Protocol: Document 04/13/20 09:56 HH (Rec: 04/13/20 10:11 HH [email or web address]) Physical Therapy Assessment Goals R ankle strength Impairment Pt has overall decreased R ankle strength with foot slap during gait Residential Goal (LTG) Pt will regain full 5/5 R ankle strength to improve her gait mechanics without foot slapping. LTG Duration 8 weeks special tests for lumbar Impairment +VE slump test Telemetry Registered Nurse Goal (LTG) pt will be symptoms free for slump test on R and piriformis stretch. cervical stability Impairment 60s for flexion hold, 80s for extension hold but pain reported for both Short Term Goal (STG) did not assess Residential Goal (LTG) Pt will be able hold for both cervical flexion and extension position in supine > 80s without neck pain to improve cervical stability LTG Duration 8 weeks headache Impairment Pt has constant headache througout the day Short Term Goal (STG) 03/30 pt has minor tension headache at the back of the skull mildly everday. But radiating headache/ migraine less than once a week STG Duration 4 weeks Telemetry Registered Nurse Goal (LTG) pt will have headahce/ migraine episodes no more than once a week. LTG Duration 8 weeks NDI Impairment pt scores 19 Telemetry Registered Nurse Goal (LTG) pt will score <10 for NDL to improve her quality of life special test Impairment pt is +ve for UTTT, compression, foraminal compression, passive neck flexio Short Term Goal (STG) 03/30 goal met pt does not have neurological symptoms with cervical special tests but has difficulty sleeping. See A& P LTG Duration 8 weeks Assessment Summary Assessment pt came in with R lateral thigh pain and stiffness at R shoulder. Pt cont to have R shoulder discomfort during eliptical but significantly improved after scapular rhythmic initiation and isotonic contraction. (pt tends to have muscle guarding with retraction). She also came in with increased R sciatic nerve tension but resolved after SIJ mob and nerve glide. She shows improved reactive balance against perturbation on balance discs today. Will cont pylometric training with focus on soft landing technique next visit. Physical Therapy Plan Frequency and Duration Frequency of Treatment 2x/wkx2,1x/wkx4 Duration of Treatment 8 weeks Plan of Care Start Date 03/30/20 Plan of Care End Date 05/29/20 Next Visit Focus/Plan Next Note Type Treatment Note Next Visit Plan isolated cervical shoulder strengthening - against ball on wall, prone extension, pull down, OH press, scap pull lumbar= ankle DF, IV , EV, nerve glide, piriformis stretch, SL squat and step up, eccentric strengthening for impactful activtiies.
--- NOTE | 2020-04-25 09:04 | PT.OTN ---
Current Diagnoses Cervicalgia (04/25/20) Occipital neuralgia (04/25/20) Physical Therapy Treatment Note PT-OP-A Visit Information Start: 12/07/19 11:25 Freq: Status: Active Protocol: Document 04/25/20 08:18 SP (Rec: 04/25/20 09:27 SP [id number]) Out-Patient Physical Therapy Visit Information Visit Information Visit Type Treatment Note Visit Start Time 08:18 Visit Stop Time 09:04 Total Visit Minutes 46 Visit Number 14/ Number of ACCREDITATION COORDINATOR Visits 1 PT-OP-B Current Condition Start: 12/07/19 11:25 Freq: Status: Active Protocol: Document 12/07/19 11:26 HH (Rec: 12/07/19 12:01 HH [email or web address]) Current Condition History of Current Condition Onset Date Feb, 2019 Current Complaints Tension headache, Neck pain, numbness in hands History of Current Condition Pt is a 39yo female sustained a concussion and head injury after a fall on the boat in February,. Pt hit the right side of the back of head but she did not seek for medical attention. Pt then experienced headache at the base of skull everyday and radiating pain to temporal region on the R side for 5-10 secs couple times a week, along with R neck pain. She also c/o frequent numbness/ shooting pain down to her 4th and 5th fingers that affects her sleep every night. The vibration of walking downhill, jumping motion tend to exacerbate her symptoms. She also experiences vertigo while looking down and tilting her head back. Pt had brain and neck MRI and both are unremarkable except there are some cervical DJD, centarl canal stenosis C6-c7 and forminal stenosis C5-6. Besides, pt also c/o mid to LBP primarily on the right side. 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 Prior Treatments and Tests Pt is currently going to massage therapist once a week and that tends to her symptoms Pt had brain and neck MRI and both are unremarkable except there are some cervical DJD, centarl canal stenosis C6-c7 and forminal stenosis C5-6. Treatment Goals Patient/Caregiver Goals 1. to be headache free everyday 2. to be able to sleep without tingling sensation/ numbness sensation to her fingers Personal Factors Other Personal Factors That May Effect Post concussion Therapy/Recovery possible TBI PT-OP-C Subjective Start: 12/07/19 11:25 Freq: Status: Active Protocol: Document 04/25/20 08:18 SP (Rec: 04/25/20 09:27 SP [id number]) OP-PT Subjective Patient Comments Patient Comments Pt reports feel like making gains, R foot drop is almost not noticeable anymore. [place] better after from neck and shoulder manual things. PT-OP-F Manual Assessment Start: 12/07/19 11:25 Freq: Status: Active Protocol: Document 12/07/19 11:26 HH (Rec: 12/07/19 12:01 HH [email or web address]) Manual Assessments Soft Tissue Assessment Soft Tissue Mobility Assessment significant tenderness to pressure at bilateral suboccipital region, proximal R SCM, R levator scap referred pain pattern no noted . Joint Mobility Assessment Joint Mobility Assessment hypomobile with PA at C1-C4, and T1-T4 PT-OP-H Neuro Start: 12/07/19 11:25 Freq: Status: Active Protocol: Document 12/07/19 11:26 HH (Rec: 12/07/19 12:01 HH [email or web address]) Sensation Evaluation Gross Sensation Gross Sensation Right UE Impaired Sensation Description Paresthesia,Numbness Dermatome Impairments C6,C7,C8,T1 Comments Summary Comments pt reports dull feeling with c6-t1 dermatome on R side Deep Tendon Reflex & Clonus Assessment Deep Tendon Reflex Bilateral Brachioradialis Deep Tendon Reflex 2+ Normal Bilateral Tricep Deep Tendon Reflex 2+ Normal Bilateral Bicep Deep Tendon Reflex 2+ Normal PT-OP-K Range of Motion Start: 12/07/19 11:25 Freq: Status: Active Protocol: Document 12/07/19 11:26 HH (Rec: 12/07/19 12:01 HH [email or web address]) Cervical Spine Range of Motion Cervical Spine Active Percentage Testing Position Sitting Comments no limitation noted for AROM but pulling sensation noted at midback with cervical flexion pinching pain noted with cervical extension and cervical extension +rotation PT-OP-L Special Tests Start: 12/07/19 11:25 Freq: Status: Active Protocol: Document 03/30/20 09:07 HH (Rec: 03/30/20 11:16 HH [id number]) Special Tests Cervical Spine Special Tests Foraminal Compression Test Results -ve Upper Limb Tension Test Test Results -ve Spurling's Test Test Results -ve Lumbar Spine Special Tests Slump Test Results +VE R Comments with DF, extended knee, trunk flexion and cervical flexion Hip Special Tests distraction Test Results +Ve R Comments relief on R PT-OP-M Strength Start: 12/07/19 11:25 Freq: Status: Active Protocol: Document 03/30/20 09:07 HH (Rec: 03/30/20 11:16 HH [id number]) Ankle/Foot Strength Ankle and Foot Manual Muscle Testing Left Dorsiflexion (L4) 5 Normal Plantarflexion (S1) 5 Normal Inversion 5 Normal Eversion (S1) 5 Normal Right Dorsiflexion (L4) 4- Good- Plantarflexion (S1) 4 Good Inversion 4 Good Eversion (S1) 4 Good Comments tenderness to pressure at anterior tib Toe Strength Toe Manual Muscle Testing Left Great Toe Flexion 5 Normal Extension 5 Normal Right Great Toe Flexion 4 Good Extension 3+ Fair+ PT-OP-Q Treatments Start: 12/07/19 11:25 Freq: Status: Active Protocol: Document 04/25/20 08:18 SP (Rec: 04/25/20 09:27 SP [id number]) Cardio Equipment Elliptical Duration (Minutes) 5 Resistance 5 Other c/o R scap and R posterior neck discomfort w /receiprocal handles better st Therapeutic Exercises Sidelying Exercises open book Sidelying Exercise Name with FADDIR stretch at the same time Side bilateral Reps/Minutes 10 x1 Comments cued scap glide/ TS rotation w / scap depression awareness dec Gh popping Standing Exercises wt shift> SL soft hop Reps/Minutes multiple times Comments same cues walk: CS neutral, arm swing/scap mob, duck (eccentricDF), heel, toe walk Standing Exercise Name gait Reps/Minutes 40 ft length x5 laps Comments cued neutral CS, scap depr relax, arm swing, core fac, soft land Gait Training Gait Activity walking w/ arm swings Surface level Distance/Duration 40 ft x6 laps Treatment Focus scap mobility, neutral CS, soft heel toe gait Comments improved less to no pain posterior neck with awareness cuing. Manual Therapy Treatment Soft Tissue Mobilization RTC Body Location infraspinatus, teres minor Mobilization Type Sustained Pressure,Trigger Point Release Intensity/Depth Deep Body Position Sidelying Comments pt c/o refer pain to top and anterior aspect of the R shoulder initially but subsided after manual therapy. SCM, upper trap Body Location R trap, levator scap Mobilization Type Sustained Pressure,Trigger Point Release Intensity/Depth Moderate Body Position Sitting suboccipital Mobilization Type Sustained Pressure,Trigger Point Release Intensity/Depth Moderate Body Position Supine Comments significant tenderness noted at suboccipital and levator scap Manual Techniques isotonic stabilization Type R scapular Body Position Sidelying Reps/Duration 4 mins Comments against PT resistance. Needed tactile cue to facilitate scap retraction rhythmic initiation Type R scapular Body Position Sidelying Reps/Duration 8 mins Comments scap elevation, depression, protraction and retraction. Noticed pt has muscle guarding initially but improved after repetitions. PT-OP-T Assessment and Plan Start: 12/07/19 11:25 Freq: Status: Active Protocol: Document 04/25/20 08:18 SP (Rec: 04/25/20 09:27 SP [id number]) Physical Therapy Assessment Goals R ankle strength Impairment Pt has overall decreased R ankle strength with foot slap during gait Fit Model Goal (LTG) Pt will regain full 5/5 R ankle strength to improve her gait mechanics without foot slapping. LTG Duration 8 weeks special tests for lumbar Impairment +VE slump test Longterm Goal (LTG) pt will be symptoms free for slump test on R and piriformis stretch. cervical stability Impairment 60s for flexion hold, 80s for extension hold but pain reported for both Short Term Goal (STG) did not assess Longterm Goal (LTG) Pt will be able hold for both cervical flexion and extension position in supine > 80s without neck pain to improve cervical stability LTG Duration 8 weeks headache Impairment Pt has constant headache througout the day Short Term Goal (STG) 03/30 pt has minor tension headache at the back of the skull mildly everday. But radiating headache/ migraine less than once a week STG Duration 4 weeks Fit Model Goal (LTG) pt will have headahce/ migraine episodes no more than once a week. LTG Duration 8 weeks NDI Impairment pt scores 19 Fit Model Goal (LTG) pt will score <10 for NDL to improve her quality of life special test Impairment pt is +ve for UTTT, compression, foraminal compression, passive neck flexio Short Term Goal (STG) 03/30 goal met pt does not have neurological symptoms with cervical special tests but has difficulty sleeping. See A& P LTG Duration 8 weeks Three Impairment Strength Short Term Goal (STG) The patient will show 5/5 strength throughout her LEs. STG Duration 5 weeks Fit Model Goal (LTG) The patient will be independent with a home exercise program. LTG Duration 10 weeks Two Impairment Activity tolerance Short Term Goal (STG) The patient will use active standing techniques to pyridine recovery operator her kitchen for 30 minutes to cook dinnerwiht 4/10 pain or less. STG Duration 5 weeks Longterm Goal (LTG) The patient will walk/hike for 1 hour with pain of 4/10 or less. 01/31 goal met pt reports pain no more than 2 /10 LTG Duration 10 weeks One Impairment Lifting/ yardwork Short Term Goal (STG) The patient will perform a squat with good body mechanics to lift 20 pounds from the ground to waist height without an increase in baseline pain. STG Duration 5 weeks Longterm Goal (LTG) 01/31 cont in progress Pt needs frequent breaks for activities such as lifting and lawnmoning The patient will shovel for 30 minutes without an increase in baseline pain with good body mechanics. LTG Duration 10 weeks Assessment Summary Assessment Pt reported little R heel discomfort during ET and improved decreased but not no neck tension w/ occasional stationary handles vs lower position of moving handles. Pt reported felt better end of tx and better awareness to self correct neck/ scap, foot land during walking and incorporated SL modified wt shift hop after education and walking awareness. Provided eccentric heel>toe, heel and toe walking with neck/trunk/ scap stab/alignment to allow strengthening for trail hikes and modified wt shift hop for home with upright posture awareness. Will continue to reassess today's tx next visit and progress as tolerated. Physical Therapy Plan Frequency and Duration Frequency of Treatment 2x/wkx2,1x/wkx4 Duration of Treatment 8 weeks Plan of Care Start Date 03/30/20 Plan of Care End Date 05/29/20 Therapeutic Interventions Therapeutic Interventions Home Exercise Program,Joint Mobilizations,Manual Therapy, Neuromuscular Re-education, Patient/Caregiver Education, Self-Care/Home Management,Soft Tissue Mobilization,Taping, Therapeutic Activities, Therapeutic Exercises Next Visit Focus/Plan Next Note Type Treatment Note Next Visit Plan Assess last tx: walking, modified wt shift/ hop good response end tx. Continue per PT POC: isolated cervical shoulder strengthening - against ball on wall, prone extension, pull down, OH press, scap pull lumbar= ankle DF, IV , EV, nerve glide, piriformis stretch, SL squat and step up, eccentric strengthening for impactful activtiies.
--- NOTE | 2020-05-02 12:13 | PT-OP ANOTE ---
pt called in and cx appt at 1000 am d/t sickness. pt has 1 appt left and might need extra sessions d/t her recent multiple cancellations.
--- NOTE | 2020-05-11 12:13 | PT.OTN ---
Current Diagnoses Cervicalgia (05/11/20) Occipital neuralgia (05/11/20) Physical Therapy Treatment Note PT-OP-A Visit Information Start: 12/07/19 11:25 Freq: Status: Active Protocol: Document 05/11/20 08:19 HH (Rec: 05/11/20 12:13 [id number]) Out-Patient Physical Therapy Visit Information Visit Information Visit Type Treatment Note Visit Note pt is 10 mins late Visit Start Time 08:25 Visit Stop Time 09:04 Total Visit Minutes 39 Visit Number Number of AEROSPACE MECHANIC Visits 0 PT-OP-B Current Condition Start: 12/07/19 11:25 Freq: Status: Active Protocol: Document 12/07/19 11:26 HH (Rec: 12/07/19 12:01 [email or web address]) Current Condition History of Current Condition Onset Date Feb, 2019 Current Complaints Tension headache, Neck pain, numbness in hands History of Current Condition Pt is a 39yo female sustained a concussion and head injury after a fall [place] the boat in February,. Pt hit the right side of the back of head but she did not seek for medical attention. Pt then experienced headache at the base of skull everyday and radiating pain to temporal region on the R side for 5-10 secs couple times a week, along with R neck pain. She also c/o frequent numbness/ shooting pain down to her 4th and 5th fingers that affects her sleep every night. The vibration of walking downhill, jumping motion tend to exacerbate her symptoms. She also experiences vertigo while looking down and tilting her head back. Pt had brain and neck MRI and both are unremarkable except there are some cervical DJD, centarl canal stenosis C6-c7 and forminal stenosis C5-6. Besides, pt also c/o mid to LBP primarily on the right side. 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 Prior Treatments and Tests Pt is currently going to massage therapist once a week and that tends to her symptoms Pt had brain and neck MRI and both are unremarkable except there are some cervical DJD, centarl canal stenosis C6-c7 and forminal stenosis C5-6. Treatment Goals Patient/Caregiver Goals 1. to be headache free everyday 2. to be able to sleep without tingling sensation/ numbness sensation to her fingers Personal Factors Other Personal Factors That May Effect Post concussion Therapy/Recovery possible TBI PT-OP-C Subjective Start: 12/07/19 11:25 Freq: Status: Active Protocol: Document 05/11/20 08:19 HH (Rec: 05/11/20 12:13 [id number]) OP-PT Subjective Patient Comments Patient Comments My neck gets really stiff sometimes when I sleep or drive. I have been feeling burning sensation in my L foot . PT-OP-F Manual Assessment Start: 12/07/19 11:25 Freq: Status: Active Protocol: Document 12/07/19 11:26 HH (Rec: 12/07/19 12:01 [email or web address]) Manual Assessments Soft Tissue Assessment Soft Tissue Mobility Assessment significant tenderness to pressure at bilateral suboccipital region, proximal R SCM, R levator scap referred pain pattern no noted . Joint Mobility Assessment Joint Mobility Assessment hypomobile with PA at C1-C4, and T1-T4 PT-OP-H Neuro Start: 12/07/19 11:25 Freq: Status: Active Protocol: Document 12/07/19 11:26 HH (Rec: 12/07/19 12:01 [email or web address]) Sensation Evaluation Gross Sensation Gross Sensation Right UE Impaired Sensation Description Paresthesia,Numbness Dermatome Impairments C6,C7,C8,T1 Comments Summary Comments pt reports dull feeling with c6-t1 dermatome on R side Deep Tendon Reflex & Clonus Assessment Deep Tendon Reflex Bilateral Brachioradialis Deep Tendon Reflex 2+ Normal Bilateral Tricep Deep Tendon Reflex 2+ Normal Bilateral Bicep Deep Tendon Reflex 2+ Normal PT-OP-K Range of Motion Start: 12/07/19 11:25 Freq: Status: Active Protocol: Document 12/07/19 11:26 HH (Rec: 12/07/19 12:01 [email or web address]) Cervical Spine Range of Motion Cervical Spine Active Percentage Testing Position Sitting Comments no limitation noted for AROM but pulling sensation noted at midback with cervical flexion pinching pain noted with cervical extension and cervical extension +rotation PT-OP-L Special Tests Start: 12/07/19 11:25 Freq: Status: Active Protocol: Document 03/30/20 09:07 HH (Rec: 03/30/20 11:16 [id number]) Special Tests Cervical Spine Special Tests Foraminal Compression Test Results -ve Upper Limb Tension Test Test Results -ve Spurling's Test Test Results -ve Lumbar Spine Special Tests Slump Test Results +VE R Comments with DF, extended knee, trunk flexion and cervical flexion Hip Special Tests distraction Test Results +Ve R Comments relief on R PT-OP-M Strength Start: 12/07/19 11:25 Freq: Status: Active Protocol: Document 03/30/20 09:07 (Rec: 03/30/20 11:16 [id number]) Ankle/Foot Strength Ankle and Foot Manual Muscle Testing Left Dorsiflexion (L4) 5 Normal Plantarflexion (S1) 5 Normal Inversion 5 Normal Eversion (S1) 5 Normal Right Dorsiflexion (L4) 4- Good- Plantarflexion (S1) 4 Good Inversion 4 Good Eversion (S1) 4 Good Comments tenderness to pressure at anterior tib Toe Strength Toe Manual Muscle Testing Left Great Toe Flexion 5 Normal Extension 5 Normal Right Great Toe Flexion 4 Good Extension 3+ Fair+ PT-OP-Q Treatments Start: 12/07/19 11:25 Freq: Status: Active Protocol: Document 05/11/20 08:19 (Rec: 05/11/20 12:13 [id number]) Cardio Equipment Treadmill Duration (Minutes) 8 Speed from 2.2 to 3.0 Incline 0.0 Other cues needed initially for armswings, improved as speed increases Therapeutic Exercises Supine Exercises PSLR Side right Reps/Minutes 30 sec x2 piriformis stretch Side right Reps/Minutes 30 sec x2 Sidelying Exercises open book Sidelying Exercise Name with FADDIR stretch at the same time Side bilateral Reps/Minutes 10 x1 Comments cued scap glide/ TS rotation w / scap depression awareness dec Gh popping Standing Exercises Forward hop Side bilateral Reps/Minutes 8 x2 Comments Cues to control landing step up Side bilateral Equipment Used 16 box Reps/Minutes 8 x2 Comments cues to control descent Manual Therapy Treatment Soft Tissue Mobilization RTC Body Location infraspinatus, teres minor Mobilization Type Sustained Pressure,Trigger Point Release Intensity/Depth Deep Body Position Sidelying Comments pt c/o refer pain to top and anterior aspect of the R shoulder initially but subsided after manual therapy. piriformis Body Location R side and SIJ Mobilization Type Sustained Pressure,Trigger Point Release Intensity/Depth Moderate Body Position Prone Neuro Re-Education Treatment Balance Activities stagger stance Details blue and yellow Reps/Duration 4 mins Comments improve reactive balance noted today. no discomfort B balance discs Details blue and yellow Reps/Duration 8 mins Comments static stance x 2 mins then with static stance with PT perturbation noticed pt has improved reactive balance to PT perturbation today PT-OP-T Assessment and Plan Start: 12/07/19 11:25 Freq: Status: Active Protocol: Document 05/11/20 08:19 HH (Rec: 05/11/20 12:13 HH [id number]) Physical Therapy Assessment Goals R ankle strength Impairment Pt has overall decreased R ankle strength with foot slap during gait [facility] Goal (LTG) Pt will regain full 5/5 R ankle strength to improve her gait mechanics without foot slapping. LTG Duration 8 weeks special tests for lumbar Impairment +VE slump test [facility] Goal (LTG) pt will be symptoms free for slump test on R and piriformis stretch. cervical stability Impairment 60s for flexion hold, 80s for extension hold but pain reported for both Short Term Goal (STG) did not assess Desktop Support Engineer Goal (LTG) Pt will be able hold for both cervical flexion and extension position in supine > 80s without neck pain to improve cervical stability LTG Duration 8 weeks headache Impairment Pt has constant headache througout the day Short Term Goal (STG) 03/30 pt has minor tension headache at the back of the skull mildly everday. But radiating headache/ migraine less than once a week STG Duration 4 weeks [facility]it[facility]iary Goal (LTG) pt will have headahce/ migraine episodes no more than once a week. LTG Duration 8 weeks NDI Impairment pt scores 19 [facility] Goal (LTG) pt will score <10 for NDL to improve her quality of life special test Impairment pt is +ve for UTTT, compression, foraminal compression, passive neck flexio Short Term Goal (STG) 03/30 goal met pt does not have neurological symptoms with cervical special tests but has difficulty sleeping. See A& P LTG Duration 8 weeks Three Impairment Strength Short Term Goal (STG) The patient will show 5/5 strength throughout her LEs. STG Duration 5 weeks Penitentiary Goal (LTG) The patient will be independent with a home exercise program. LTG Duration 10 weeks Assessment Summary Assessment Cont to focus on overall shoulder and SL strnegthening and balance training today. Pt did not c/o discomfort of R neck during therex. Initiated treatmill speed walking today and noticed pt needed cues for reciprocal armswing but improved as gait speed increases. Cont to focus increase pt activity tolerance and SL strnegthening. Physical Therapy Plan Frequency and Duration Frequency of Treatment 2x/wkx2,1x/wkx4 Duration of Treatment 8 weeks Plan of Care Start Date 03/30/20 Plan of Care End Date 05/29/20 Therapeutic Interventions Therapeutic Interventions Home Exercise Program,Joint Mobilizations,Manual Therapy, Neuromuscular Re-education, Patient/Caregiver Education, Self-Care/Home Management,Soft Tissue Mobilization,Taping, Therapeutic Activities, Therapeutic Exercises Next Visit Focus/Plan Next Note Type Treatment Note Next Visit Plan Assess last tx: walking, modified wt shift/ hop good response end tx. Continue per PT POC: isolated cervical shoulder strengthening - against ball on wall, prone extension, pull down, OH press, scap pull lumbar= ankle DF, IV , EV, nerve glide, piriformis stretch, SL squat and step up, eccentric strengthening for impactful activtiies.
--- NOTE | 2020-05-15 12:27 | PT.OTN ---
Current Diagnoses Cervicalgia (05/15/20) Occipital neuralgia (05/15/20) Physical Therapy Treatment Note PT-OP-A Visit Information Start: 12/07/19 11:25 Freq: Status: Active Protocol: Document 05/15/20 11:22 HH (Rec: 05/15/20 12:27 [id number]) Out-Patient Physical Therapy Visit Information Visit Information Visit Type Treatment Note Visit Note pt is 15 mins late Visit Start Time 11:30 Visit Stop Time 12:05 Total Visit Minutes 35 Visit Number Number of SECTION [employer] Visits 0 PT-OP-B Current Condition Start: 12/07/19 11:25 Freq: Status: Active Protocol: Document 12/07/19 11:26 HH (Rec: 12/07/19 12:01 [email or web address]) Current Condition History of Current Condition Onset Date Feb, 2019 Current Complaints Tension headache, Neck pain, numbness in hands History of Current Condition Pt is a 39yo female sustained a concussion and head injury after a fall on the boat in February,. Pt hit the right side of the back of head but she did not seek for medical attention. Pt then experienced headache at the base of skull everyday and radiating pain to temporal region on the R side for 5-10 secs couple times a week, along with R neck pain. She also c/o frequent numbness/ shooting pain down to her 4th and 5th fingers that affects her sleep every night. The vibration of walking downhill, jumping motion tend to exacerbate her symptoms. She also experiences vertigo while looking down and tilting her head back. Pt had brain and neck MRI and both are unremarkable except there are some cervical DJD, centarl canal stenosis C6-c7 and forminal stenosis C5-6. Besides, pt also c/o mid to LBP primarily on the right side. 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 Prior Treatments and Tests Pt is currently going to massage therapist once a week and that tends to her symptoms Pt had brain and neck MRI and both are unremarkable except there are some cervical DJD, centarl canal stenosis C6-c7 and forminal stenosis C5-6. Treatment Goals Patient/Caregiver Goals 1. to be headache free everyday 2. to be able to sleep without tingling sensation/ numbness sensation to her fingers Personal Factors Other Personal Factors That May Effect Post concussion Therapy/Recovery possible TBI PT-OP-C Subjective Start: 12/07/19 11:25 Freq: Status: Active Protocol: Document 05/15/20 11:22 HH (Rec: 05/15/20 12:27 [id number]) OP-PT Subjective Patient Comments Patient Comments I got quite sore from TM walking from last time. 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 Joint Mobility Assessment Joint Mobility Assessment hypomobile with PA at C1-C4, and T1-T4 PT-OP-H Neuro Start: 12/07/19 11:25 Freq: Status: Active Protocol: Document 12/07/19 11:26 HH (Rec: 12/07/19 12:01 [email or web address]) Sensation Evaluation Gross Sensation Gross Sensation Right UE Impaired Sensation Description Paresthesia,Numbness Dermatome Impairments C6,C7,C8,T1 Comments Summary Comments pt reports dull feeling with c6-t1 dermatome on R side Deep Tendon Reflex & Clonus Assessment Deep Tendon Reflex Bilateral Brachioradialis Deep Tendon Reflex 2+ Normal Bilateral Tricep Deep Tendon Reflex 2+ Normal Bilateral Bicep Deep Tendon Reflex 2+ Normal PT-OP-K Range of Motion Start: 12/07/19 11:25 Freq: Status: Active Protocol: Document 12/07/19 11:26 HH (Rec: 12/07/19 12:01 [email or web address]) Cervical Spine Range of Motion Cervical Spine Active Percentage Testing Position Sitting Comments no limitation noted for AROM but pulling sensation noted at midback with cervical flexion pinching pain noted with cervical extension and cervical extension +rotation PT-OP-L Special Tests Start: 12/07/19 11:25 Freq: Status: Active Protocol: Document 03/30/20 09:07 HH (Rec: 03/30/20 11:16 [id number]) Special Tests Cervical Spine Special Tests Foraminal Compression Test Results -ve Upper Limb Tension Test Test Results -ve Spurling's Test Test Results -ve Lumbar Spine Special Tests Slump Test Results +VE R Comments with DF, extended knee, trunk flexion and cervical flexion Hip Special Tests distraction Test Results +Ve R Comments relief on R PT-OP-M Strength Start: 12/07/19 11:25 Freq: Status: Active Protocol: Document 03/30/20 09:07 (Rec: 03/30/20 11:16 [id number]) Ankle/Foot Strength Ankle and Foot Manual Muscle Testing Left Dorsiflexion (L4) 5 Normal Plantarflexion (S1) 5 Normal Inversion 5 Normal Eversion (S1) 5 Normal Right Dorsiflexion (L4) 4- Good- Plantarflexion (S1) 4 Good Inversion 4 Good Eversion (S1) 4 Good Comments tenderness to pressure at anterior tib Toe Strength Toe Manual Muscle Testing Left Great Toe Flexion 5 Normal Extension 5 Normal Right Great Toe Flexion 4 Good Extension 3+ Fair+ PT-OP-Q Treatments Start: 12/07/19 11:25 Freq: Status: Active Protocol: Document 05/15/20 11:22 (Rec: 05/15/20 12:27 [id number]) Cardio Equipment Elliptical Duration (Minutes) 7 Resistance 5 Other slight discomfort at R shoulder Treadmill Duration (Minutes) 8 Speed from 2.2 to 3.0 Incline 0.0 Other improved armswings with less cues. Therapeutic Exercises Prone Exercises scap push ups Side bilateral Reps/Minutes 10 x 2 Comments cues on protraciton Sidelying Exercises open book Sidelying Exercise Name with FADDIR stretch at the same time Side bilateral Reps/Minutes 10 x1 Comments cued scap glide/ TS rotation w / scap depression awareness dec Gh popping Standing Exercises windmill Standing Exercise Name clockwise and anti clockwise Side bilateral Reps/Minutes 8 x 2 lat pull down Side bilateral Equipment Used cable Reps/Minutes 30 lbs x 2 shoulder press Side bilateral Equipment Used 4lbs ankle weight on PVC Reps/Minutes 8 x2 Manual Therapy Treatment Manual Techniques isotonic stabilization Type R scapular Body Position Sidelying Reps/Duration 4 mins Comments against PT resistance. Needed tactile cue to facilitate scap retraction rhythmic initiation Type R scapular Body Position Sidelying Reps/Duration 8 mins Comments scap elevation, depression, protraction and retraction. Noticed pt has muscle guarding initially but improved after repetitions. PT-OP-T Assessment and Plan Start: 12/07/19 11:25 Freq: Status: Active Protocol: Document 05/15/20 11:22 (Rec: 05/15/20 12:27 [id number]) Physical Therapy Assessment Goals R ankle strength Impairment Pt has overall decreased R ankle strength with foot slap during gait Site Planner Goal (LTG) Pt will regain full 5/5 R ankle strength to improve her gait mechanics without foot slapping. LTG Duration 8 weeks special tests for lumbar Impairment +VE slump test Site Planner Goal (LTG) pt will be symptoms free for slump test on R and piriformis stretch. cervical stability Impairment 60s for flexion hold, 80s for extension hold but pain reported for both Short Term Goal (STG) did not assess Site Planner Goal (LTG) Pt will be able hold for both cervical flexion and extension position in supine > 80s without neck pain to improve cervical stability LTG Duration 8 weeks headache Impairment Pt has constant headache througout the day Short Term Goal (STG) 03/30 pt has minor tension headache at the back of the skull mildly everday. But radiating headache/ migraine less than once a week STG Duration 4 weeks Longterm Goal (LTG) pt will have headahce/ migraine episodes no more than once a week. LTG Duration 8 weeks NDI Impairment pt scores 19 Site Planner Goal (LTG) pt will score <10 for NDL to improve her quality of life special test Impairment pt is +ve for UTTT, compression, foraminal compression, passive neck flexio Short Term Goal (STG) 03/30 goal met pt does not have neurological symptoms with cervical special tests but has difficulty sleeping. See A& P LTG Duration 8 weeks Assessment Summary Assessment Pt had discomfort at R shoulder after TM walking and some lifting activities from work. Pt has improved armswings and relaxation at R trap during therex today. Pt cont need to focus on progressive strengthening on neck and R shoulder. Physical Therapy Plan Frequency and Duration Frequency of Treatment 2x/wkx2,1x/wkx4 Duration of Treatment 8 weeks Plan of Care Start Date 03/30/20 Plan of Care End Date 05/29/20 Next Visit Focus/Plan Next Note Type Treatment Note Next Visit Plan Assess last tx: walking, modified wt shift/ hop good response end tx. Continue per PT POC: isolated cervical shoulder strengthening - against ball on wall, prone extension, pull down, OH press, scap pull lumbar= ankle DF, IV , EV, nerve glide, piriformis stretch, SL squat and step up, eccentric strengthening for impactful activtiies.
--- NOTE | 2020-05-22 12:04 | PT-IP ANOTE ---
Pt called in to cancel her appointment d/t family emergency. She stated she feels a lot better after shoulder strengthening ex from last visit. She hopes to cont therapy 1/week x 6 and she will call in to schedule more appts.
--- NOTE | 2020-06-05 16:25 | PT.OPPN ---
Current Diagnoses Cervicalgia (06/05/20) Occipital neuralgia (06/05/20) Physical Therapy Progress Note PT-OP-A Visit Information Start: 12/07/19 11:25 Freq: Status: Active Protocol: Document 06/05/20 13:50 HH (Rec: 06/05/20 16:25 HH [id number]) Out-Patient Physical Therapy Visit Information Visit Information Visit Type Progress Note Visit Note Pt stated she has been having difficulty attending PT appts d/t CG his uncle. 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 Pt hit the right side of the back of head but she did not seek for medical attention. Pt then experienced headache at the base of skull everyday and radiating pain to temporal region on the R side for 5-10 secs couple times a week, along with R neck pain. She also c/o frequent numbness/ shooting pain down to her 4th and 5th fingers that affects her sleep every night. The vibration of walking downhill, jumping motion tend to exacerbate her symptoms. She also experiences vertigo while looking down and tilting her head back. Pt had brain and neck MRI and both are unremarkable except there are some cervical DJD, centarl canal stenosis C6-c7 and forminal stenosis C5-6. Besides, pt also c/o mid to LBP primarily on the right side. 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 Prior Treatments and Tests Pt is currently going to massage therapist once a week and that tends to her symptoms Pt had brain and neck MRI and both are unremarkable except there are some cervical DJD, centarl canal stenosis C6-c7 and forminal stenosis C5-6. Treatment Goals Patient/Caregiver Goals 1. to be headache free everyday 2. to be able to sleep without tingling sensation/ numbness sensation to her fingers Personal Factors Other Personal Factors That May Effect Post concussion Therapy/Recovery possible TBI PT-OP-C Subjective Start: 12/07/19 11:25 Freq: Status: Active Protocol: Document 06/05/20 13:50 HH (Rec: 06/05/20 16:25 [id number]) OP-PT Subjective Patient Comments Patient Comments I had a follow up with neurologist at [facility] and they were concern about foot drop. So they will give me MRI test. My foot drop is not happening. Patient Reported Progress Improving PT-OP-F Manual Assessment Start: 12/07/19 11:25 Freq: Status: Active Protocol: Document 12/07/19 11:26 HH (Rec: 12/07/19 12:01 [email or web address]) Manual Assessments Soft Tissue Assessment Soft Tissue Mobility Assessment significant tenderness to pressure at bilateral suboccipital region, proximal R SCM, R levator scap referred pain pattern no noted . Joint Mobility Assessment Joint Mobility Assessment hypomobile with PA at C1-C4, and T1-T4 PT-OP-H Neuro Start: 12/07/19 11:25 Freq: Status: Active Protocol: Document 12/07/19 11:26 HH (Rec: 12/07/19 12:01 [email or web address]) Sensation Evaluation Gross Sensation Gross Sensation Right UE Impaired Sensation Description Paresthesia,Numbness Dermatome Impairments C6,C7,C8,T1 Comments Summary Comments pt reports dull feeling with c6-t1 dermatome on R side Deep Tendon Reflex & Clonus Assessment Deep Tendon Reflex Bilateral Brachioradialis Deep Tendon Reflex 2+ Normal Bilateral Tricep Deep Tendon Reflex 2+ Normal Bilateral Bicep Deep Tendon Reflex 2+ Normal PT-OP-K Range of Motion Start: 12/07/19 11:25 Freq: Status: Active Protocol: Document 12/07/19 11:26 HH (Rec: 12/07/19 12:01 [email or web address]) Cervical Spine Range of Motion Cervical Spine Active Percentage Testing Position Sitting Comments no limitation noted for AROM but pulling sensation noted at midback with cervical flexion pinching pain noted with cervical extension and cervical extension +rotation PT-OP-L Special Tests Start: 12/07/19 11:25 Freq: Status: Active Protocol: Document 03/30/20 09:07 HH (Rec: 03/30/20 11:16 [id number]) Special Tests Cervical Spine Special Tests Foraminal Compression Test Results -ve Upper Limb Tension Test Test Results -ve Spurling's Test Test Results -ve Lumbar Spine Special Tests Slump Test Results +VE R Comments with DF, extended knee, trunk flexion and cervical flexion Hip Special Tests distraction Test Results +Ve R Comments relief on R PT-OP-M Strength Start: 12/07/19 11:25 Freq: Status: Active Protocol: Document 03/30/20 09:07 HH (Rec: 03/30/20 11:16 [id number]) Ankle/Foot Strength Ankle and Foot Manual Muscle Testing Left Dorsiflexion (L4) 5 Normal Plantarflexion (S1) 5 Normal Inversion 5 Normal Eversion (S1) 5 Normal Right Dorsiflexion (L4) 4- Good- Plantarflexion (S1) 4 Good Inversion 4 Good Eversion (S1) 4 Good Comments tenderness to pressure at anterior tib Toe Strength Toe Manual Muscle Testing Left Great Toe Flexion 5 Normal Extension 5 Normal Right Great Toe Flexion 4 Good Extension 3+ Fair+ PT-OP-T Assessment and Plan Start: 12/07/19 11:25 Freq: Status: Active Protocol: Document 06/05/20 13:50 HH (Rec: 06/05/20 16:25 [id number]) Physical Therapy Assessment Goals activity tolerance Impairment pain with wood chopping, hiking and jogging Short Term Goal (STG) Pt will be able to tolerate hiking and speed walking 2-3 times a week without increased in R neck and shoulder discomfort. STG Duration 4 weeks Director Outcomes Goal (LTG) Pt will be able to tolerate wood chopping and jogging 2-3 times a week without increased in R neck and shoulder discomfort. LTG Duration 8 weeks R ankle strength Impairment Pt has overall decreased R ankle strength with foot slap during gait Mcfp Goal (LTG) 06/05 goal met Pt regain full 5/5 R ankle strength to improve her gait mechanics without foot slapping. LTG Duration 8 weeks special tests for lumbar Impairment +VE slump test Mcfp Goal (LTG) 06/05 goal met pt is symptoms free for slump test on R and piriformis stretch. cervical stability Impairment 60s for flexion hold, 80s for extension hold but pain reported for both Short Term Goal (STG) did not assess Director Outcomes Goal (LTG) Pt will be able hold for both cervical flexion and extension position in supine > 80s without neck pain to improve cervical stability LTG Duration 8 weeks headache Impairment Pt has constant headache througout the day Short Term Goal (STG) 03/30 pt has minor tension headache at the back of the skull mildly everday. But radiating headache/ migraine less than once a week STG Duration 4 weeks Director Outcomes Goal (LTG) pt will have headahce/ migraine episodes no more than once a week. LTG Duration 8 weeks NDI Impairment pt scores 19 Director Outcomes Goal (LTG) pt will score <10 for NDL to improve her quality of life special test Impairment pt is +ve for UTTT, compression, foraminal compression, passive neck flexio Short Term Goal (STG) 03/30 goal met pt does not have neurological symptoms with cervical special tests but has difficulty sleeping. 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 She also stated she has been feeling very stressful d/t multiple social and personal factors. However, she does not have R foot drop and her R foot strength and back pain have been conitously getting better. 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 Physical Therapy Plan Frequency and Duration Frequency of Treatment 1x/Week Duration of Treatment 8 weeks Plan of Care Start Date 06/05/20 Plan of Care End Date 08/04/20 Therapeutic Interventions Therapeutic Interventions Home Exercise Program,Joint Mobilizations,Manual Therapy, Neuromuscular Re-education, Patient/Caregiver Education, Self-Care/Home Management,Soft Tissue Mobilization,Taping, Therapeutic Activities, Therapeutic Exercises Next Visit Focus/Plan Next Note Type Treatment Note Next Visit Plan R shoulder ROM, UBE shoulder press, lat pull down, wall clock, shoulder shrug, snatch step up , SL balance
--- NOTE | 2020-06-05 16:28 | PT.OPPOC ---
Physical, Occupational & Speech Therapy At [facility] Current Diagnoses Cervicalgia (06/05/20) Occipital neuralgia (06/05/20) Visit Care Team Role Provider Type Deb Ledesma PA-C Primary Care Provider Advanced Whipper Specialty: Medical Address: [address] [place] [address], [address], [place], [address] Email: Caryn Ewing DO Attending Provider Non-Staff Referring Provider Specialty: Psychiatry Address: [address] [place] [address], [id number] Email: Plan Of Care PT-OP-T Assessment and Plan Start: 12/07/19 11:25 Freq: Status: Active Protocol: Document 06/05/20 13:50 HH (Rec: 06/05/20 16:25 HH [id number]) Physical Therapy Assessment Goals activity tolerance Impairment pain with wood chopping, hiking and jogging Short Term Goal (STG) Pt will be able to tolerate hiking and speed walking 2-3 times a week without increased in R neck and shoulder discomfort. STG Duration 4 weeks Neurodiagnostic Technician Goal (LTG) Pt will be able to tolerate wood chopping and jogging 2-3 times a week without increased in R neck and shoulder discomfort. LTG Duration 8 weeks R ankle strength Impairment Pt has overall decreased R ankle strength with foot slap during gait Neurodiagnostic Technician Goal (LTG) 06/05 goal met Pt regain full 5/5 R ankle strength to improve her gait mechanics without foot slapping. LTG Duration 8 weeks special tests for lumbar Impairment +VE slump test Neurodiagnostic Technician Goal (LTG) 06/05 goal met pt is symptoms free for slump test on R and piriformis stretch. cervical stability Impairment 60s for flexion hold, 80s for extension hold but pain reported for both Short Term Goal (STG) did not assess Neurodiagnostic Technician Goal (LTG) Pt will be able hold for both cervical flexion and extension position in supine > 80s without neck pain to improve cervical stability LTG Duration 8 weeks headache Impairment Pt has constant headache througout the day Short Term Goal (STG) 03/30 pt has minor tension headache at the back of the skull mildly everday. But radiating headache/ migraine less than once a week STG Duration 4 weeks Neurodiagnostic Technician Goal (LTG) pt will have headahce/ migraine episodes no more than once a week. LTG Duration 8 weeks NDI Impairment pt scores 19 Nursing Home Goal (LTG) pt will score <10 for NDL to improve her quality of life special test Impairment pt is +ve for UTTT, compression, foraminal compression, passive neck flexio Short Term Goal (STG) 03/30 goal met pt does not have neurological symptoms with cervical special tests but has difficulty sleeping. 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 She also stated she has been feeling very stressful d/t multiple social and personal factors. However, she does not have R foot drop and her R foot strength and back pain have been conitously getting better. 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 Physical Therapy Plan Frequency and Duration Frequency of Treatment 1x/Week Duration of Treatment 8 weeks Plan of Care Start Date 06/05/20 Plan of Care End Date 08/04/20 Therapeutic Interventions Therapeutic Interventions Home Exercise Program,Joint Mobilizations,Manual Therapy, Neuromuscular Re-education, Patient/Caregiver Education, Self-Care/Home Management,Soft Tissue Mobilization,Taping, Therapeutic Activities, Therapeutic Exercises Next Visit Focus/Plan Next Note Type Treatment Note Next Visit Plan R shoulder ROM, UBE shoulder press, lat pull down, wall clock, shoulder shrug, snatch step up , SL balance Plan of Care Dates Plan of Care Start Date 06/05/20 Plan of Care End Date 08/04/20 Electronically Signed by: Connor Box, PT 06/05/20 [id number] Please Sign and Return: I have reviewed this Plan of Care and certify that the skilled therapy services above are required to meet the patient?s needs. Physician Signature Date Printed Name and Credentials Clinical Instructor Signature Printed Name and Credentials
--- NOTE | 2020-06-05 16:29 | PT.OTN ---
Current Diagnoses Cervicalgia (06/05/20) Occipital neuralgia (06/05/20) Physical Therapy Treatment Note PT-OP-A Visit Information Start: 12/07/19 11:25 Freq: Status: Active Protocol: Document 06/05/20 13:50 HH (Rec: 06/05/20 16:25 HH [id number]) Out-Patient Physical Therapy Visit Information Visit Information Visit Type Progress Note Visit Note Pt stated she has been having difficulty attending PT appts d/t CG his uncle. Visit Start Time 13:50 Visit Stop Time 14:30 Total Visit Minutes 40 Visit Number 17/ Number of CERAMIC TILE SETTER Visits 0 PT-OP-B Current Condition Start: 12/07/19 11:25 Freq: Status: Active Protocol: Document 12/07/19 11:26 HH (Rec: 12/07/19 12:01 HH [email or web address]) Current Condition History of Current Condition Onset Date Feb, 2019 Current Complaints Tension headache, Neck pain, numbness in hands History of Current Condition Pt is a 39yo female sustained a concussion and head injury after a fall on the boat in February,. Pt hit the right side of the back of head but she did not seek for medical attention. Pt then experienced headache at the base of skull everyday and radiating pain to temporal region on the R side for 5-10 secs couple times a week, along with R neck pain. She also c/o frequent numbness/ shooting pain down to her 4th and 5th fingers that affects her sleep every night. The vibration of walking downhill, jumping motion tend to exacerbate her symptoms. She also experiences vertigo while looking down and tilting her head back. Pt had brain and neck MRI and both are unremarkable except there are some cervical DJD, centarl canal stenosis C6-c7 and forminal stenosis C5-6. Besides, pt also c/o mid to LBP primarily on the right side. 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 Prior Treatments and Tests Pt is currently going to massage therapist once a week and that tends to her symptoms Pt had brain and neck MRI and both are unremarkable except there are some cervical DJD, centarl canal stenosis C6-c7 and forminal stenosis C5-6. Treatment Goals Patient/Caregiver Goals 1. to be headache free everyday 2. to be able to sleep without tingling sensation/ numbness sensation to her fingers Personal Factors Other Personal Factors That May Effect Post concussion Therapy/Recovery possible TBI PT-OP-C Subjective Start: 12/07/19 11:25 Freq: Status: Active Protocol: Document 06/05/20 13:50 HH (Rec: 06/05/20 16:25 [id number]) OP-PT Subjective Patient Comments Patient Comments I had a follow up with neurologist at [facility] and they were concern about foot drop. So they will give me MRI test. My foot drop is not happening. Patient Reported Progress Improving PT-OP-F Manual Assessment Start: 12/07/19 11:25 Freq: Status: Active Protocol: Document 12/07/19 11:26 HH (Rec: 12/07/19 12:01 [email or web address]) Manual Assessments Soft Tissue Assessment Soft Tissue Mobility Assessment significant tenderness to pressure at bilateral suboccipital region, proximal R SCM, R levator scap referred pain pattern no noted . Joint Mobility Assessment Joint Mobility Assessment hypomobile with PA at C1-C4, and T1-T4 PT-OP-H Neuro Start: 12/07/19 11:25 Freq: Status: Active Protocol: Document 12/07/19 11:26 HH (Rec: 12/07/19 12:01 [email or web address]) Sensation Evaluation Gross Sensation Gross Sensation Right UE Impaired Sensation Description Paresthesia,Numbness Dermatome Impairments C6,C7,C8,T1 Comments Summary Comments pt reports dull feeling with c6-t1 dermatome on R side Deep Tendon Reflex & Clonus Assessment Deep Tendon Reflex Bilateral Brachioradialis Deep Tendon Reflex 2+ Normal Bilateral Tricep Deep Tendon Reflex 2+ Normal Bilateral Bicep Deep Tendon Reflex 2+ Normal PT-OP-K Range of Motion Start: 12/07/19 11:25 Freq: Status: Active Protocol: Document 12/07/19 11:26 HH (Rec: 12/07/19 12:01 [email or web address]) Cervical Spine Range of Motion Cervical Spine Active Percentage Testing Position Sitting Comments no limitation noted for AROM but pulling sensation noted at midback with cervical flexion pinching pain noted with cervical extension and cervical extension +rotation PT-OP-L Special Tests Start: 12/07/19 11:25 Freq: Status: Active Protocol: Document 03/30/20 09:07 HH (Rec: 03/30/20 11:16 [id number]) Special Tests Cervical Spine Special Tests Foraminal Compression Test Results -ve Upper Limb Tension Test Test Results -ve Spurling's Test Test Results -ve Lumbar Spine Special Tests Slump Test Results +VE R Comments with DF, extended knee, trunk flexion and cervical flexion Hip Special Tests distraction Test Results +Ve R Comments relief on R PT-OP-M Strength Start: 12/07/19 11:25 Freq: Status: Active Protocol: Document 03/30/20 09:07 (Rec: 03/30/20 11:16 [id number]) Ankle/Foot Strength Ankle and Foot Manual Muscle Testing Left Dorsiflexion (L4) 5 Normal Plantarflexion (S1) 5 Normal Inversion 5 Normal Eversion (S1) 5 Normal Right Dorsiflexion (L4) 4- Good- Plantarflexion (S1) 4 Good Inversion 4 Good Eversion (S1) 4 Good Comments tenderness to pressure at anterior tib Toe Strength Toe Manual Muscle Testing Left Great Toe Flexion 5 Normal Extension 5 Normal Right Great Toe Flexion 4 Good Extension 3+ Fair+ PT-OP-Q Treatments Start: 12/07/19 11:25 Freq: Status: Active Protocol: Document 06/05/20 13:50 HH (Rec: 06/05/20 16:25 [id number]) Cardio Equipment Upper Body Ergometer (UBE) Duration (Minutes) 5 RPM 60 Seat Position standing Therapeutic Exercises Supine Exercises piriformis stretch Side right Reps/Minutes 30 sec x2 Comments no discomfort noted. Prone Exercises scap push ups Side bilateral Reps/Minutes 10 x 2 Comments cues on protraciton Sitting Exercises shoulder shrugs Equipment Used 2x 5lbs DB Reps/Minutes 10 x2 Standing Exercises windmill Standing Exercise Name clockwise and anti clockwise Side bilateral Reps/Minutes 8 x 2 lat pull down Side bilateral Equipment Used cable Reps/Minutes 30 lbs x 10 x2 shoulder press Standing Exercise Name unilateral Side bilateral Equipment Used 4lbs DB Reps/Minutes 8 x2 step up Side bilateral Equipment Used 12 box Reps/Minutes 8 x2 Comments cues to control descent PT-OP-T Assessment and Plan Start: 12/07/19 11:25 Freq: Status: Active Protocol: Document 06/05/20 13:50 HH (Rec: 06/05/20 16:25 [id number]) Physical Therapy Assessment Goals activity tolerance Impairment pain with wood chopping, hiking and jogging Short Term Goal (STG) Pt will be able to tolerate hiking and speed walking 2-3 times a week without increased in R neck and shoulder discomfort. STG Duration 4 weeks Film Mounter Goal (LTG) Pt will be able to tolerate wood chopping and jogging 2-3 times a week without increased in R neck and shoulder discomfort. LTG Duration 8 weeks R ankle strength Impairment Pt has overall decreased R ankle strength with foot slap during gait Halfway Goal (LTG) 06/05 goal met Pt regain full 5/5 R ankle strength to improve her gait mechanics without foot slapping. LTG Duration 8 weeks special tests for lumbar Impairment +VE slump test Halfway Goal (LTG) 06/05 goal met pt is symptoms free for slump test on R and piriformis stretch. cervical stability Impairment 60s for flexion hold, 80s for extension hold but pain reported for both Short Term Goal (STG) did not assess Film Mounter Goal (LTG) Pt will be able hold for both cervical flexion and extension position in supine > 80s without neck pain to improve cervical stability LTG Duration 8 weeks headache Impairment Pt has constant headache througout the day Short Term Goal (STG) 03/30 pt has minor tension headache at the back of the skull mildly everday. But radiating headache/ migraine less than once a week STG Duration 4 weeks Halfway Goal (LTG) pt will have headahce/ migraine episodes no more than once a week. LTG Duration 8 weeks NDI Impairment pt scores 19 Halfway Goal (LTG) pt will score <10 for NDL to improve her quality of life special test Impairment pt is +ve for UTTT, compression, foraminal compression, passive neck flexio Short Term Goal (STG) 03/30 goal met pt does not have neurological symptoms with cervical special tests but has difficulty sleeping. 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 She also stated she has been feeling very stressful d/t multiple social and personal factors. However, she does not have R foot drop and her R foot strength and back pain have been conitously getting better. 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 Physical Therapy Plan Frequency and Duration Frequency of Treatment 1x/Week Duration of Treatment 8 weeks Plan of Care Start Date 06/05/20 Plan of Care End Date 08/04/20 Therapeutic Interventions Therapeutic Interventions Home Exercise Program,Joint Mobilizations,Manual Therapy, Neuromuscular Re-education, Patient/Caregiver Education, Self-Care/Home Management,Soft Tissue Mobilization,Taping, Therapeutic Activities, Therapeutic Exercises Next Visit Focus/Plan Next Note Type Treatment Note Next Visit Plan R shoulder ROM, UBE shoulder press, lat pull down, wall clock, shoulder shrug, snatch step up , SL balance
--- NOTE | 2020-06-27 12:25 | PT-OP ANOTE ---
Pt did not show for today's appt, left a message regarding but if want to reschedule for 06/29 w/ Araceli SMASHER can do so. Also schedule an appt for week of 07/11/20 none scheduled at this time, then next follow up appt with PT Tod on 07/20/20.
--- NOTE | 2020-07-20 15:13 | PT.OPPOC ---
Physical, Occupational & Speech Therapy At [facility] Current Diagnoses Cervicalgia (07/20/20) Occipital neuralgia (07/20/20) Visit Care Team Role Provider Type Deb Ledesma PA-C Primary Care Provider Advanced Reeling Operator Specialty: Medical Address: [address] [place] [address], [address], [place], [address] Email: Caryn Ewing DO Attending Provider Non-Staff Referring Provider Specialty: Psychiatry Address: [address] [place] [address], [id number] Email: Plan Of Care PT-OP-T Assessment and Plan Start: 12/07/19 11:25 Freq: Status: Active Protocol: Document 07/20/20 12:20 HH (Rec: 07/20/20 12:59 HH [email or web address]) Physical Therapy Assessment Goals quick dash Impairment pt scores 22.7 on quick dash Food Operations Manager Goal (LTG) pt will score <15 on quick dash to improve her shoulder mobility and strength so she can perform heavy lifting/ 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 STG Duration 4 weeks Mcfp Goal (LTG) Pt will be able to tolerate wood chopping and jogging 2-3 times a week without increased in R neck and shoulder discomfort. LTG Duration 8 weeks R ankle strength Impairment Pt has overall decreased R ankle strength with foot slap during gait Food Operations Manager Goal (LTG) 06/05 goal met 07/20/20 closely met Pt shows full 4/5 R ankle DF and big toe extension strength . She will regain 5/5 for both strength to improve her gait mechanics LTG Duration 8 weeks special tests for lumbar Impairment +VE slump test Short Term Goal (STG) 06/05 goal met pt is symptoms free for slump test on R and piriformis stretch. Food Operations Manager Goal (LTG) 07/20/20 pt has pain at low back with supine SLR on RLE. She will be pain free in 8 weeks LTG Duration 8 weeks cervical stability Impairment 60s for flexion hold, 80s for extension hold but pain reported for both Short Term Goal (STG) did not assess 07/20/20 Mcfp Goal (LTG) Pt will be able hold for both cervical flexion and extension position in supine > 80s without neck pain to improve cervical stability LTG Duration 8 weeks headache Impairment Pt has constant headache througout the day Short Term Goal (STG) 03/30 pt has minor tension headache at the back of the skull mildly everday. But radiating headache/ migraine less than once a week STG Duration 4 weeks Food Operations Manager Goal (LTG) pt will have headahce/ migraine episodes no more than once a week. LTG Duration 8 weeks NDI Impairment pt scores 19 Short Term Goal (STG) 07/20/20 pt scores 16 on NDI Mcfp Goal (LTG) pt will score <10 for NDL to improve her quality of life special test Impairment pt is +ve for UTTT, compression, foraminal compression, passive neck flexio Short Term Goal (STG) 03/30 goal met pt does not have neurological symptoms with cervical special tests but has difficulty sleeping. See A& P LTG Duration 8 weeks Progress Towards Goals Progress Towards Goals Slow Progress due to Attendance Issues,Slow Progress due to Noncompliance, Slow Progress - Other Assessment Summary Assessment pt was last seen on 06/05/20 and has been cancelling all her appts d/t family issues. [place], pt stated she has been getting better for both neck and low back. Reassessment performed today and noticed pt still hsa slight weakness at R ankle DF and big toe extension along with R LBP d/t lumbar spine radiculopathy at L5-S1 level. Pt has shown significant improvements earlier in March to April but she was unable to be compliant after d/t aforementioned reasons. 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 Physical Therapy Plan Frequency and Duration Frequency of Treatment 1x/Week Duration of Treatment 8 weeks Plan of Care Start Date 07/20/20 Plan of Care End Date 09/18/20 Therapeutic Interventions Therapeutic Interventions Home Exercise Program,Joint Mobilizations,Manual Therapy, Neuromuscular Re-education, Patient/Caregiver Education, Self-Care/Home Management,Soft Tissue Mobilization,Taping, Therapeutic Activities, Therapeutic Exercises Next Visit Focus/Plan Next Note Type Treatment Note Next Visit Plan R shoulder reassessment R shoulder ROM, UBE shoulder press, lat pull down, wall clock, shoulder shrug, snatch step up , SL balance Plan of Care Dates Plan of Care Start Date 07/20/20 Plan of Care End Date 09/18/20 Electronically Signed by: Connor Box, PT 07/20/20 0162 Please Sign and Return: I have reviewed this Plan of Care and certify that the skilled therapy services above are required to meet the patient?s needs. Physician Signature Date Printed Name and Credentials Clinical Instructor Signature Printed Name and Credentials
--- NOTE | 2020-07-20 15:14 | PT.OPPN ---
Current Diagnoses Cervicalgia (07/20/20) Occipital neuralgia (07/20/20) Physical Therapy Progress Note PT-OP-A Visit Information Start: 12/07/19 11:25 Freq: Status: Active Protocol: Document 07/20/20 12:20 HH (Rec: 07/20/20 12:59 HH [email or web address]) Out-Patient Physical Therapy Visit Information Visit Information Visit Type Progress Note Visit Start Time 10:30 Visit Stop Time 11:15 Total Visit Minutes 45 Visit Number 07/30 Number of ACID PLANT HELPER Visits 0 PT-OP-B Current Condition Start: 12/07/19 11:25 Freq: Status: Active Protocol: Document 12/07/19 11:26 HH (Rec: 12/07/19 12:01 HH [email or web address]) Current Condition History of Current Condition Onset Date Feb, 2019 Current Complaints Tension headache, Neck pain, numbness in hands History of Current Condition Pt is a 39yo female sustained a concussion and head injury after a fall on the boat in February,. Pt hit the right side of the back of head but she did not seek for medical attention. Pt then experienced headache at the base of skull everyday and radiating pain to temporal region on the R side for 5-10 secs couple times a week, along with R neck pain. She also c/o frequent numbness/ shooting pain down to her 4th and 5th fingers that affects her sleep every night. The vibration of walking downhill, jumping motion tend to exacerbate her symptoms. She also experiences vertigo while looking down and tilting her head back. Pt had brain and neck MRI and both are unremarkable except there are some cervical DJD, centarl canal stenosis C6-c7 and forminal stenosis C5-6. Besides, pt also c/o mid to LBP primarily on the right side. 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 Prior Treatments and Tests Pt is currently going to massage therapist once a week and that tends to her symptoms Pt had brain and neck MRI and both are unremarkable except there are some cervical DJD, centarl canal stenosis C6-c7 and forminal stenosis C5-6. Treatment Goals Patient/Caregiver Goals 1. to be headache free everyday 2. to be able to sleep without tingling sensation/ numbness sensation to her fingers Personal Factors Other Personal Factors That May Effect Post concussion Therapy/Recovery possible TBI PT-OP-C Subjective Start: 12/07/19 11:25 Freq: Status: Active Protocol: Document 07/20/20 12:20 HH (Rec: 07/20/20 12:59 [email or web address]) OP-PT Subjective Patient Comments Patient Comments im getting better overall. My neck still feels tight at night and still has some numbness tinglingt on R hand once a week. My back is still hurts sometimes and still noticed weakness at my R ankle but its getting better. My neurologist doctor ordered MRI but i havent got it yet. I did nerve conduction test on my R sciatic nerve and they found out there;s some interference going on there. Patient Questionnaires Neck Disability Index NDI Score 16 Neck Disability Index Impairment 20 to 39% Impaired (Score 10- 19) Quick Dash- Upper Extremity Quick Dash UE Score 22.7 Quick Dash UE Impairment 20 to 39% Impaired (Score 20- 39) PT-OP-F Manual Assessment Start: 12/07/19 11:25 Freq: Status: Active Protocol: Document 12/07/19 11:26 HH (Rec: 12/07/19 12:01 [email or web address]) Manual Assessments Soft Tissue Assessment Soft Tissue Mobility Assessment significant tenderness to pressure at bilateral suboccipital region, proximal R SCM, R levator scap referred pain pattern no noted . Joint Mobility Assessment Joint Mobility Assessment hypomobile with PA at C1-C4, and T1-T4 PT-OP-H Neuro Start: 12/07/19 11:25 Freq: Status: Active Protocol: Document 07/20/20 12:20 HH (Rec: 07/20/20 12:59 [email or web address]) Sensation Evaluation Gross Sensation Gross Sensation Right LE Impaired Sensation Description Numbness,Tingling Dermatome Impairments L5,S1 PT-OP-K Range of Motion Start: 12/07/19 11:25 Freq: Status: Active Protocol: Document 12/07/19 11:26 HH (Rec: 12/07/19 12:01 [email or web address]) Cervical Spine Range of Motion Cervical Spine Active Percentage Testing Position Sitting Comments no limitation noted for AROM but pulling sensation noted at midback with cervical flexion pinching pain noted with cervical extension and cervical extension +rotation PT-OP-L Special Tests Start: 12/07/19 11:25 Freq: Status: Active Protocol: Document 07/20/20 12:20 HH (Rec: 07/20/20 12:59 [email or web address]) Special Tests Lumbar Spine Special Tests Straight Leg Raise Test Results +VE on R Comments pain at low back at hip flexion at 90 degrees PT-OP-M Strength Start: 12/07/19 11:25 Freq: Status: Active Protocol: Document 07/20/20 12:20 HH (Rec: 07/20/20 12:59 [email or web address]) Hip Strength Hip Manual Muscle Testing Right Flexion (L2) 5 Normal Extension (S1) 5 Normal Abduction 5 Normal Adduction 5 Normal External Rotation 5 Normal Internal Rotation 5 Normal Left Flexion (L2) 5 Normal Extension (S1) 5 Normal Abduction 5 Normal Adduction 5 Normal External Rotation 4- Good- Internal Rotation 5 Normal Knee Strength Knee Manual Muscle Testing Right Flexion (S2) 5 Normal Extension (L3) 5 Normal Left Flexion (S2) 5 Normal Extension (L3) 5 Normal Ankle/Foot Strength Ankle and Foot Manual Muscle Testing Left Dorsiflexion (L4) 5 Normal Plantarflexion (S1) 5 Normal Inversion 5 Normal Eversion (S1) 5 Normal Right Dorsiflexion (L4) 4- Good- Plantarflexion (S1) 5 Normal Inversion 5 Normal Eversion (S1) 5 Normal Toe Strength Toe Manual Muscle Testing Left Great Toe Flexion 5 Normal Extension 5 Normal Right Great Toe Flexion 5 Normal Extension 4 Good PT-OP-T Assessment and Plan Start: 12/07/19 11:25 Freq: Status: Active Protocol: Document 07/20/20 12:20 (Rec: 07/20/20 12:59 [email or web address]) Physical Therapy Assessment Goals quick dash Impairment pt scores 22.7 on quick dash Instruction Assistant Principal Goal (LTG) pt will score <15 on quick dash to improve her shoulder mobility and strength so she can perform 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 STG Duration 4 weeks Instruction Assistant Principal Goal (LTG) Pt will be able to tolerate wood chopping and jogging 2-3 times a week without increased in R neck and shoulder discomfort. LTG Duration 8 weeks R ankle strength Impairment Pt has overall decreased R ankle strength with foot slap during gait Instruction Assistant Principal Goal (LTG) 06/05 goal met 07/20/20 closely met Pt shows full 4/5 R ankle DF and big toe extension strength . She will regain 5/5 for both strength to improve her gait mechanics LTG Duration 8 weeks special tests for lumbar Impairment +VE slump test Short Term Goal (STG) 06/05 goal met pt is symptoms free for slump test on R and piriformis stretch. Long-Term Goal (LTG) 07/20/20 pt has pain at low back with supine SLR on RLE. She will be pain free in 8 weeks LTG Duration 8 weeks cervical stability Impairment 60s for flexion hold, 80s for extension hold but pain reported for both Short Term Goal (STG) did not assess 07/20/20 Instruction Assistant Principal Goal (LTG) Pt will be able hold for both cervical flexion and extension position in supine > 80s without neck pain to improve cervical stability LTG Duration 8 weeks headache Impairment Pt has constant headache througout the day Short Term Goal (STG) 03/30 pt has minor tension headache at the back of the skull mildly everday. But radiating headache/ migraine less than once a week STG Duration 4 weeks Long-Term Goal (LTG) pt will have headahce/ migraine episodes no more than once a week. LTG Duration 8 weeks NDI Impairment pt scores 19 Short Term Goal (STG) 07/20/20 pt scores 16 on NDI Long-Term Goal (LTG) pt will score <10 for NDL to improve her quality of life special test Impairment pt is +ve for UTTT, compression, foraminal compression, passive neck flexio Short Term Goal (STG) 03/30 goal met pt does not have neurological symptoms with cervical special tests but has difficulty sleeping. See A& P LTG Duration 8 weeks Progress Towards Goals Progress Towards Goals Slow Progress due to Attendance Issues,Slow Progress due to Noncompliance, Slow Progress - Other Assessment Summary Assessment pt was last seen on 06/05/20 and has been cancelling all her appts d/t family issues. Howevre, pt stated she has been getting better for both neck and low back. Reassessment performed today and noticed pt still hsa slight weakness at R ankle DF and big toe extension along with R LBP d/t lumbar spine radiculopathy at L5-S1 level. Pt has shown significant improvements earlier in March to April but she was unable to be compliant after d/t aforementioned reasons. 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 Physical Therapy Plan Frequency and Duration Frequency of Treatment 1x/Week Duration of Treatment 8 weeks Plan of Care Start Date 07/20/20 Plan of Care End Date 09/18/20 Therapeutic Interventions Therapeutic Interventions Home Exercise Program,Joint Mobilizations,Manual Therapy, Neuromuscular Re-education, Patient/Caregiver Education, Self-Care/Home Management,Soft Tissue Mobilization,Taping, Therapeutic Activities, Therapeutic Exercises Next Visit Focus/Plan Next Note Type Treatment Note Next Visit Plan R shoulder reassessment R shoulder ROM, UBE shoulder press, lat pull down, wall clock, shoulder shrug, snatch step up , SL balance
--- NOTE | 2020-07-27 15:15 | PT.OTN ---
Current Diagnoses Cervicalgia (07/27/20) Occipital neuralgia (07/27/20) Physical Therapy Treatment Note PT-OP-A Visit Information Start: 12/07/19 11:25 Freq: Status: Active Protocol: Document 07/27/20 14:32 SP (Rec: 07/27/20 15:18 SP [id number]) Out-Patient Physical Therapy Visit Information Visit Information Visit Type Treatment Note Visit Start Time 14:32 Visit Stop Time 15:15 Total Visit Minutes 43 Visit Number 08/30 Number of IT NETWORK ARCHITECT Visits 1 PT-OP-B Current Condition Start: 12/07/19 11:25 Freq: Status: Active Protocol: Document 12/07/19 11:26 HH (Rec: 12/07/19 12:01 HH [email or web address]) Current Condition History of Current Condition Onset Date Feb, 2019 Current Complaints Tension headache, Neck pain, numbness in hands History of Current Condition Pt is a 39yo female sustained a concussion and head injury after a fall on the boat in February,. Pt hit the right side of the back of head but she did not seek for medical attention. Pt then experienced headache at the base of skull everyday and radiating pain to temporal region on the R side for 5-10 secs couple times a week, along with R neck pain. She also c/o frequent numbness/ shooting pain down to her 4th and 5th fingers that affects her sleep every night. The vibration of walking downhill, jumping motion tend to exacerbate her symptoms. She also experiences vertigo while looking down and tilting her head back. Pt had brain and neck MRI and both are unremarkable except there are some cervical DJD, centarl canal stenosis C6-c7 and forminal stenosis C5-6. Besides, pt also c/o mid to LBP primarily on the right side. 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 Prior Treatments and Tests Pt is currently going to massage therapist once a week and that tends to her symptoms Pt had brain and neck MRI and both are unremarkable except there are some cervical DJD, centarl canal stenosis C6-c7 and forminal stenosis C5-6. Treatment Goals Patient/Caregiver Goals 1. to be headache free everyday 2. 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 Does have stretches can do just need to do them. PT-OP-F Manual Assessment Start: 12/07/19 11:25 Freq: Status: Active Protocol: Document 12/07/19 11:26 HH (Rec: 12/07/19 12:01 HH [email or web address]) Manual Assessments Soft Tissue Assessment Soft Tissue Mobility Assessment significant tenderness to pressure at bilateral suboccipital region, proximal R SCM, R levator scap referred pain pattern no noted . Joint Mobility Assessment Joint Mobility Assessment hypomobile with PA at C1-C4, and T1-T4 PT-OP-H Neuro Start: 12/07/19 11:25 Freq: Status: Active Protocol: Document 07/20/20 12:20 HH (Rec: 07/20/20 12:59 HH [email or web address]) Sensation Evaluation Gross Sensation Gross Sensation Right LE Impaired Sensation Description Numbness,Tingling Dermatome Impairments L5,S1 PT-OP-K Range of Motion Start: 12/07/19 11:25 Freq: Status: Active Protocol: Document 12/07/19 11:26 HH (Rec: 12/07/19 12:01 HH [email or web address]) Cervical Spine Range of Motion Cervical Spine Active Percentage Testing Position Sitting Comments no limitation noted for AROM but pulling sensation noted at midback with cervical flexion pinching pain noted with cervical extension and cervical extension +rotation PT-OP-L Special Tests Start: 12/07/19 11:25 Freq: Status: Active Protocol: Document 07/20/20 12:20 HH (Rec: 07/20/20 12:59 HH [email or web address]) Special Tests Lumbar Spine Special Tests Straight Leg Raise Test Results +VE on R Comments pain at low back at hip flexion at 90 degrees PT-OP-M Strength Start: 12/07/19 11:25 Freq: Status: Active Protocol: Document 07/20/20 12:20 HH (Rec: 07/20/20 12:59 HH [email or web address]) Hip Strength Hip Manual Muscle Testing Right Flexion (L2) 5 Normal Extension (S1) 5 Normal Abduction 5 Normal Adduction 5 Normal External Rotation 5 Normal Internal Rotation 5 Normal Left Flexion (L2) 5 Normal Extension (S1) 5 Normal Abduction 5 Normal Adduction 5 Normal External Rotation 4- Good- Internal Rotation 5 Normal Knee Strength Knee Manual Muscle Testing Right Flexion (S2) 5 Normal Extension (L3) 5 Normal Left Flexion (S2) 5 Normal Extension (L3) 5 Normal Ankle/Foot Strength Ankle and Foot Manual Muscle Testing Left Dorsiflexion (L4) 5 Normal Plantarflexion (S1) 5 Normal Inversion 5 Normal Eversion (S1) 5 Normal Right Dorsiflexion (L4) 4- Good- Plantarflexion (S1) 5 Normal Inversion 5 Normal Eversion (S1) 5 Normal Toe Strength Toe Manual Muscle Testing Left Great Toe Flexion 5 Normal Extension 5 Normal Right Great Toe Flexion 5 Normal Extension 4 Good PT-OP-Q Treatments Start: 12/07/19 11:25 Freq: Status: Active Protocol: Document 07/27/20 14:32 SP (Rec: 07/27/20 15:18 SP [id number]) Therapeutic Exercises Sidelying Exercises open book Side bilateral Reps/Minutes 10 x1 Comments cued scap glide/ TS rotation w / scap depression awareness dec Gh popping Sitting Exercises UT stretch Side bilateral Resistance manual Reps/Minutes 30 on R levator scap stretch Side bilateral Reps/Minutes 20 secs hold x2 Comments for HEP Standing Exercises resisted rows Side bilateral Resistance Tb # 2 Reps/Minutes x10 Comments cued scap depress eccentric directioning return, tongue touch roof mouth windmill Standing Exercise Name clockwise and anti clockwise Side bilateral Reps/Minutes 8 x 2 lat pull down Side bilateral Equipment Used cable Reps/Minutes 30 lbs x 10 x2 Comments cued scap depress eccentric directioning return, tongue touch roof mouth shoulder press Standing Exercise Name unilateral over press Side bilateral Equipment Used 4lbs DB Reps/Minutes 12 x2 Comments cued scap depress stab con/ ecc and inf GH head con/ ecc Manual Therapy Treatment Soft Tissue Mobilization manual UT, Lev scap stretch Body Location R Body Position Hooklying SCM, upper trap Body Location R trap, levator scap Mobilization Type Sustained Pressure,Trigger Point Release Intensity/Depth Moderate Body Position Sitting suboccipital Mobilization Type Sustained Pressure,Trigger Point Release Intensity/Depth Moderate Body Position Supine Comments significant tenderness noted at suboccipital and levator scap PT-OP-T Assessment and Plan Start: 12/07/19 11:25 Freq: Status: Active Protocol: Document 07/27/20 14:32 SP (Rec: 07/27/20 15:18 SP [id number]) Physical Therapy Assessment Goals quick dash Impairment pt scores 22.7 on quick dash Middle [employer] Spanish Teacher Goal (LTG) pt will score <15 on quick dash to improve her shoulder mobility and strength so she can 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 STG Duration 4 weeks Middle School Spanish Teacher Goal (LTG) Pt will be able to tolerate wood chopping and jogging 2-3 times a week without increased in R neck and shoulder discomfort. LTG Duration 8 weeks R ankle strength Impairment Pt has overall decreased R ankle strength with foot slap during gait Retirement Goal (LTG) 06/05 goal met 07/20/20 closely met Pt shows full 4/5 R ankle DF and big toe extension strength . She will regain 5/5 for both strength to improve her gait mechanics LTG Duration 8 weeks special tests for lumbar Impairment +VE slump test Short Term Goal (STG) 06/05 goal met pt is symptoms free for slump test on R and piriformis stretch. [employer] Spanish Teacher Goal (LTG) 07/20/20 pt has pain at low back with supine SLR on RLE. She will be pain free in 8 weeks LTG Duration 8 weeks cervical stability Impairment 60s for flexion hold, 80s for extension hold but pain reported for both Short Term Goal (STG) did not assess 07/20/20 Retirement Goal (LTG) Pt will be able hold for both cervical flexion and extension position in supine > 80s without neck pain to improve cervical stability LTG Duration 8 weeks headache Impairment Pt has constant headache througout the day Short Term Goal (STG) 03/30 pt has minor tension headache at the back of the skull mildly everday. But radiating headache/ migraine less than once a week STG Duration 4 weeks [employer] Spanish Teacher Goal (LTG) pt will have headahce/ migraine episodes no more than once a week. LTG Duration 8 weeks NDI Impairment pt scores 19 Short Term Goal (STG) 07/20/20 pt scores 16 on NDI Retirement Goal (LTG) pt will score <10 for NDL to improve her quality of life special test Impairment pt is +ve for UTTT, compression, foraminal compression, passive neck flexio Short Term Goal (STG) 03/30 goal met pt does not have neurological symptoms with cervical special tests but has difficulty sleeping. See A& P LTG Duration 8 weeks Three Impairment Strength Short Term Goal (STG) The patient will show 5/5 strength throughout her LEs. STG Duration 5 weeks Retirement Goal (LTG) The patient will be independent with a home exercise program. LTG Duration 10 weeks Two Impairment Activity tolerance Short Term Goal (STG) The patient will use active standing techniques to shutdown coordinator her kitchen for 30 minutes to cook dinnerwiht 4/10 pain or less. STG Duration 5 weeks Retirement Goal (LTG) The patient will walk/hike for 1 hour with pain of 4/10 or less. 01/31 goal met pt reports pain no more than 2 /10 LTG Duration 10 weeks One Impairment Lifting/ yardwork Short Term Goal (STG) The patient will perform a squat with good body mechanics to lift 20 pounds from the ground to waist height without an increase in baseline pain. STG Duration 5 weeks [employer] Spanish Teacher Goal (LTG) 01/31 cont in progress Pt needs frequent breaks for activities such as lifting and lawnmoning The patient will shovel for 30 minutes without an increase in baseline pain with good body mechanics. LTG Duration 10 weeks Assessment Summary Assessment Pt tolerated manual, initated neck stretching and scap stabilization strengthening, cued scap depression during concentric/ eccentric directioning with CS ext/ neutral. Physical Therapy Plan Frequency and Duration Frequency of Treatment 1x/Week Duration of Treatment 8 weeks Plan of Care Start Date 07/20/20 Plan of Care End Date 09/18/20 Therapeutic Interventions Therapeutic Interventions Home Exercise Program,Joint Mobilizations,Manual Therapy, Neuromuscular Re-education, Patient/Caregiver Education, Self-Care/Home Management,Soft Tissue Mobilization,Taping, Therapeutic Activities, Therapeutic Exercises Next Visit Focus/Plan Next Note Type Treatment Note Next Visit Plan Assess response to manual neck STMs, R shld TB and DB ex. Continue per Pt POC: R shoulder reassessment R shoulder ROM, UBE shoulder press, lat pull down, wall clock, shoulder shrug, snatch step up , SL balance
--- NOTE | 2020-08-03 10:32 | PT.OTN ---
Current Diagnoses Cervicalgia (08/03/20) Occipital neuralgia (08/03/20) Physical Therapy Treatment Note PT-OP-A Visit Information Start: 12/07/19 11:25 Freq: Status: Active Protocol: Document 08/03/20 09:48 SP (Rec: 08/03/20 11:43 SP [id number]) Out-Patient Physical Therapy Visit Information Visit Information Visit Type Treatment Note Visit Note SAAD De La Rosa attended tx. Visit Start Time 09:48 Visit Stop Time 10:32 Total Visit Minutes 44 Visit Number 09/27 Number of SUPERVISOR [employer] Visits 2 PT-OP-B Current Condition Start: 12/07/19 11:25 Freq: Status: Active Protocol: Document 12/07/19 11:26 HH (Rec: 12/07/19 12:01 HH [email or web address]) Current Condition History of Current Condition Onset Date Feb, 2019 Current Complaints Tension headache, Neck pain, numbness in hands History of Current Condition Pt is a 39yo female sustained a concussion and head injury after a fall on the boat in February,. Pt hit the right side of the back of head but she did not seek for medical attention. Pt then experienced headache at the base of skull everyday and radiating pain to temporal region on the R side for 5-10 secs couple times a week, along with R neck pain. She also c/o frequent numbness/ shooting pain down to her 4th and 5th fingers that affects her sleep every night. The vibration of walking downhill, jumping motion tend to exacerbate her symptoms. She also experiences vertigo while looking down and tilting her head back. Pt had brain and neck MRI and both are unremarkable except there are some cervical DJD, centarl canal stenosis C6-c7 and forminal stenosis C5-6. Besides, pt also c/o mid to LBP primarily on the right side. 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 Prior Treatments and Tests Pt is currently going to massage therapist once a week and that tends to her symptoms Pt had brain and neck MRI and both are unremarkable except there are some cervical DJD, centarl canal stenosis C6-c7 and forminal stenosis C5-6. Treatment Goals Patient/Caregiver Goals 1. to be headache free everyday 2. to be able to sleep without tingling sensation/ numbness sensation to her fingers Personal Factors Other Personal Factors That May Effect Post concussion Therapy/Recovery possible TBI PT-OP-C Subjective Start: 12/07/19 11:25 Freq: Status: Active Protocol: Document 08/03/20 09:48 SP (Rec: 08/03/20 11:43 SP [id number]) OP-PT Subjective Patient Comments Patient Comments Pt reported am sore from work yesterday, push/ pulling: pulling wagon from behind, helped with my posture but LB discomfort from pulling roots. Pt stated almost back to normal but still stiffness, disfunction on R leg, foot, toes, and balance not all way yet and still some cognitive deficits with word finding and slowed speech, trouble concentrating. Does have kain suggestions from Speech Therapy to assist improving this. Still can't do impact activities as skiing, driving over pot holes and jumping off tailgate at work but improved . PT-OP-F Manual Assessment Start: 12/07/19 11:25 Freq: Status: Active Protocol: Document 12/07/19 11:26 HH (Rec: 12/07/19 12:01 HH [email or web address]) Manual Assessments Soft Tissue Assessment Soft Tissue Mobility Assessment significant tenderness to pressure at bilateral suboccipital region, proximal R SCM, R levator scap referred pain pattern no noted . Joint Mobility Assessment Joint Mobility Assessment hypomobile with PA at C1-C4, and T1-T4 PT-OP-H Neuro Start: 12/07/19 11:25 Freq: Status: Active Protocol: Document 07/20/20 12:20 HH (Rec: 07/20/20 12:59 HH [email or web address]) Sensation Evaluation Gross Sensation Gross Sensation Right LE Impaired Sensation Description Numbness,Tingling Dermatome Impairments L5,S1 PT-OP-K Range of Motion Start: 12/07/19 11:25 Freq: Status: Active Protocol: Document 12/07/19 11:26 HH (Rec: 12/07/19 12:01 HH [email or web address]) Cervical Spine Range of Motion Cervical Spine Active Percentage Testing Position Sitting Comments no limitation noted for AROM but pulling sensation noted at midback with cervical flexion pinching pain noted with cervical extension and cervical extension +rotation PT-OP-L Special Tests Start: 12/07/19 11:25 Freq: Status: Active Protocol: Document 07/20/20 12:20 HH (Rec: 07/20/20 12:59 HH [email or web address]) Special Tests Lumbar Spine Special Tests Straight Leg Raise Test Results +VE on R Comments pain at low back at hip flexion at 90 degrees PT-OP-M Strength Start: 12/07/19 11:25 Freq: Status: Active Protocol: Document 07/20/20 12:20 HH (Rec: 07/20/20 12:59 HH [email or web address]) Hip Strength Hip Manual Muscle Testing Right Flexion (L2) 5 Normal Extension (S1) 5 Normal Abduction 5 Normal Adduction 5 Normal External Rotation 5 Normal Internal Rotation 5 Normal Left Flexion (L2) 5 Normal Extension (S1) 5 Normal Abduction 5 Normal Adduction 5 Normal External Rotation 4- Good- Internal Rotation 5 Normal Knee Strength Knee Manual Muscle Testing Right Flexion (S2) 5 Normal Extension (L3) 5 Normal Left Flexion (S2) 5 Normal Extension (L3) 5 Normal Ankle/Foot Strength Ankle and Foot Manual Muscle Testing Left Dorsiflexion (L4) 5 Normal Plantarflexion (S1) 5 Normal Inversion 5 Normal Eversion (S1) 5 Normal Right Dorsiflexion (L4) 4- Good- Plantarflexion (S1) 5 Normal Inversion 5 Normal Eversion (S1) 5 Normal Toe Strength Toe Manual Muscle Testing Left Great Toe Flexion 5 Normal Extension 5 Normal Right Great Toe Flexion 5 Normal Extension 4 Good PT-OP-Q Treatments Start: 12/07/19 11:25 Freq: Status: Active Protocol: Document 08/03/20 09:48 SP (Rec: 08/03/20 11:43 SP [id number]) Cardio Equipment Upper Body Ergometer (UBE) Duration (Minutes) 6 RPM 60 Seat Position sitting Height 3 Other RPM 60, 25calories, 3-4METs, total cycles 359 Gym Equipment Cable Column (Body Solid) Lat Pull Down Details under hand to assist scap stab into depression Resistance 20>30 Reps/Time x10 each standing rows Details split stance, core fac Resistance 10 Reps/Time 2x10 Therapeutic Exercises Sitting Exercises UT stretch Side bilateral Resistance manual Equipment Used standing Reps/Minutes 30 on L>R today Comments review HEP levator scap stretch Side bilateral Equipment Used standing Reps/Minutes 30 on L>R today Comments review HEP Standing Exercises thercane posterior neck Standing Exercise Name MWM chin nod/ turn, UT, suboccipitals, splenius cerv, splen cap : review HE Side bilateral Reps/Minutes 3 min self ball roll UT, interscap, infrasp Standing Exercise Name Socure wall on wall : review HEP Side left Resistance self AROM Reps/Minutes 30 sec Comments reps tolerance cross body stretch Standing Exercise Name home performance visual for form Side bilateral Reps/Minutes 30 x2 pec stretch Standing Exercise Name clasp behind back, depress UE, scap retract and lift to tolerance Side bilateral Resistance add HEP Reps/Minutes 30 x3 Comments open chest, upright trunk and head posture windmill Standing Exercise Name clockwise and anti clockwise Side bilateral Resistance #1 DB Reps/Minutes 10 x 2 Comments review HEP, cued GH inferior glide shoulder press Standing Exercise Name unilateral over press review HEP Side bilateral Equipment Used 4lbs DB Reps/Minutes 12 x2 Comments cued scap depress stab con/ ecc and inf GH head con/ ecc PT-OP-T Assessment and Plan Start: 12/07/19 11:25 Freq: Status: Active Protocol: Document 08/03/20 09:48 SP (Rec: 08/03/20 11:43 SP [id number]) Physical Therapy Assessment Goals quick dash Impairment pt scores 22.7 on quick dash Fdc Goal (LTG) pt will score <15 on quick dash to improve her shoulder mobility and strength so 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 STG Duration 4 weeks Box Toe Cementer Goal (LTG) Pt will be able to tolerate wood chopping and jogging 2-3 times a week without increased in R neck and shoulder discomfort. LTG Duration 8 weeks R ankle strength Impairment Pt has overall decreased R ankle strength with foot slap during gait Fdc Goal (LTG) 06/05 goal met 07/20/20 closely met Pt shows full 4/5 R ankle DF and big toe extension strength . She will regain 5/5 for both strength to improve her gait mechanics LTG Duration 8 weeks special tests for lumbar Impairment +VE slump test Short Term Goal (STG) 06/05 goal met pt is symptoms free for slump test on R and piriformis stretch. Fdc Goal (LTG) 07/20/20 pt has pain at low back with supine SLR on RLE. She will be pain free in 8 weeks LTG Duration 8 weeks cervical stability Impairment 60s for flexion hold, 80s for extension hold but pain reported for both Short Term Goal (STG) did not assess 07/20/20 Box Toe Cementer Goal (LTG) Pt will be able hold for both cervical flexion and extension position in supine > 80s without neck pain to improve cervical stability LTG Duration 8 weeks headache Impairment Pt has constant headache througout the day Short Term Goal (STG) 03/30 pt has minor tension headache at the back of the skull mildly everday. But radiating headache/ migraine less than once a week STG Duration 4 weeks Box Toe Cementer Goal (LTG) pt will have headahce/ migraine episodes no more than once a week. LTG Duration 8 weeks NDI Impairment pt scores 19 Short Term Goal (STG) 07/20/20 pt scores 16 on NDI Fdc Goal (LTG) pt will score <10 for NDL to improve her quality of life special test Impairment pt is +ve for UTTT, compression, foraminal compression, passive neck flexio Short Term Goal (STG) 03/30 goal met pt does not have neurological symptoms with cervical special tests but has difficulty sleeping. See A& P LTG Duration 8 weeks Three Impairment Strength Short Term Goal (STG) The patient will show 5/5 strength throughout her LEs. STG Duration 5 weeks Fdc Goal (LTG) The patient will be independent with a home exercise program. 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 STG Duration 5 weeks Fdc Goal (LTG) The patient will walk/hike for 1 hour with pain of 4/10 or less. 01/31 goal met pt reports pain no more than 2 /10 LTG Duration 10 weeks One Impairment Lifting/ yardwork Short Term Goal (STG) The patient will perform a squat with good body mechanics to lift 20 pounds from the ground to waist height without an increase in baseline pain. STG Duration 5 weeks Fdc Goal (LTG) 01/31 cont in progress Pt needs frequent breaks for activities such as lifting and lawnmoning The patient will shovel for 30 minutes without an increase in baseline pain with good body mechanics. LTG Duration 10 weeks Assessment Summary Assessment Pt responded well to ther ex and self STMs and neck stretching today to review carryover at home/ work, cued for Humeral head inf glide during OH motions con/ecc and use of mirror for self corrections. Pt is compliant with HEP. Physical Therapy Plan Frequency and Duration Frequency of Treatment 1x/Week Duration of Treatment 8 weeks Plan of Care Start Date 07/20/20 Plan of Care End Date 09/18/20 Therapeutic Interventions Therapeutic Interventions Home Exercise Program,Joint Mobilizations,Manual Therapy, Neuromuscular Re-education, Patient/Caregiver Education, Self-Care/Home Management,Soft Tissue Mobilization,Taping, Therapeutic Activities, Therapeutic Exercises Next Visit Focus/Plan Next Note Type Treatment Note Next Visit Plan Assess response to manual neck STMs, R shld TB and DB ex. Continue per Pt POC: R shoulder reassessment R shoulder ROM, UBE shoulder press, lat pull down, wall clock, shoulder shrug, snatch step up , SL balance
--- NOTE | 2020-08-10 09:15 | PT-OP ANOTE ---
Pt cancelled today's appt, no reason given. SIEBEL DEVELOPER left message for inquiry of reasoning for awareness but will see at next scheduled appt.
--- NOTE | 2020-08-17 14:34 | PT.OTN ---
Current Diagnoses Cervicalgia (08/17/20) Occipital neuralgia (08/17/20) Physical Therapy Treatment Note PT-OP-A Visit Information Start: 12/07/19 11:25 Freq: Status: Active Protocol: Document 08/17/20 13:46 LD (Rec: 08/17/20 15:29 LD [id number]) Out-Patient Physical Therapy Visit Information Visit Information Visit Type Treatment Note Visit Note SPTA co led tx with FEI Charles . 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 Pt hit the right side of the back of head but she did not seek for medical attention. Pt then experienced headache at the base of skull everyday and radiating pain to temporal region on the R side for 5-10 secs couple times a week, along with R neck pain. She also c/o frequent numbness/ shooting pain down to her 4th and 5th fingers that affects her sleep every night. The vibration of walking downhill, jumping motion tend to exacerbate her symptoms. She also experiences vertigo while looking down and tilting her head back. Pt had brain and neck MRI and both are unremarkable except there are some cervical DJD, centarl canal stenosis C6-c7 and forminal stenosis C5-6. Besides, pt also c/o mid to LBP primarily on the right side. 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 Prior Treatments and Tests Pt is currently going to massage therapist once a week and that tends to her symptoms Pt had brain and neck MRI and both are unremarkable except there are some cervical DJD, centarl canal stenosis C6-c7 and forminal stenosis C5-6. Treatment Goals Patient/Caregiver Goals 1. to be headache free everyday 2. to be able to sleep without tingling sensation/ numbness sensation to her fingers Personal Factors Other Personal Factors That May Effect Post concussion Therapy/Recovery possible TBI PT-OP-C Subjective Start: 12/07/19 11:25 Freq: Status: Active Protocol: Document 08/17/20 13:46 LD (Rec: 08/17/20 15:29 LD [id number]) OP-PT Subjective Patient Comments Patient Comments Pt reported tingling in R 4-5 MTP. Had a massage yesterday, R shld posterior more than anterior and posterior neck. States neck is more stiff. MRI shows no present bulging disc , instead intrusion/stenosis. Patient Reported Progress Improving PT-OP-F Manual Assessment Start: 12/07/19 11:25 Freq: Status: Active Protocol: Document 12/07/19 11:26 HH (Rec: 12/07/19 12:01 HH [email or web address]) Manual Assessments Soft Tissue Assessment Soft Tissue Mobility Assessment significant tenderness to pressure at bilateral suboccipital region, proximal R SCM, R levator scap referred pain pattern no noted . Joint Mobility Assessment Joint Mobility Assessment hypomobile with PA at C1-C4, and T1-T4 PT-OP-H Neuro Start: 12/07/19 11:25 Freq: Status: Active Protocol: Document 07/20/20 12:20 HH (Rec: 07/20/20 12:59 HH [email or web address]) Sensation Evaluation Gross Sensation Gross Sensation Right LE Impaired Sensation Description Numbness,Tingling Dermatome Impairments L5,S1 PT-OP-K Range of Motion Start: 12/07/19 11:25 Freq: Status: Active Protocol: Document 12/07/19 11:26 HH (Rec: 12/07/19 12:01 HH [email or web address]) Cervical Spine Range of Motion Cervical Spine Active Percentage Testing Position Sitting Comments no limitation noted for AROM but pulling sensation noted at midback with cervical flexion pinching pain noted with cervical extension and cervical extension +rotation PT-OP-L Special Tests Start: 12/07/19 11:25 Freq: Status: Active Protocol: Document 07/20/20 12:20 HH (Rec: 07/20/20 12:59 HH [email or web address]) Special Tests Lumbar Spine Special Tests Straight Leg Raise Test Results +VE on R Comments pain at low back at hip flexion at 90 degrees PT-OP-M Strength Start: 12/07/19 11:25 Freq: Status: Active Protocol: Document 07/20/20 12:20 HH (Rec: 07/20/20 12:59 HH [email or web address]) Hip Strength Hip Manual Muscle Testing Right Flexion (L2) 5 Normal Extension (S1) 5 Normal Abduction 5 Normal Adduction 5 Normal External Rotation 5 Normal Internal Rotation 5 Normal Left Flexion (L2) 5 Normal Extension (S1) 5 Normal Abduction 5 Normal Adduction 5 Normal External Rotation 4- Good- Internal Rotation 5 Normal Knee Strength Knee Manual Muscle Testing Right Flexion (S2) 5 Normal Extension (L3) 5 Normal Left Flexion (S2) 5 Normal Extension (L3) 5 Normal Ankle/Foot Strength Ankle and Foot Manual Muscle Testing Left Dorsiflexion (L4) 5 Normal Plantarflexion (S1) 5 Normal Inversion 5 Normal Eversion (S1) 5 Normal Right Dorsiflexion (L4) 4- Good- Plantarflexion (S1) 5 Normal Inversion 5 Normal Eversion (S1) 5 Normal Toe Strength Toe Manual Muscle Testing Left Great Toe Flexion 5 Normal Extension 5 Normal Right Great Toe Flexion 5 Normal Extension 4 Good PT-OP-Q Treatments Start: 12/07/19 11:25 Freq: Status: Active Protocol: Document 08/17/20 13:46 LD (Rec: 08/17/20 15:29 LD [id number]) Cardio Equipment Upper Body Ergometer (UBE) Duration (Minutes) 6 RPM 80 Seat Position sitting Height 3 Gym Equipment Cable Column (Body Solid) Lat Pull Down Details under hand to assist scap stab into depression Resistance 30 Reps/Time x10 each (added HEP 1/2 kneel lat pull w/ TB) standing rows Details split stance, core fac Resistance 10 Reps/Time 2x10 Therapeutic Exercises Standing Exercises Nerve flossing/glides Standing Exercise Name Ulnar, median, radial Reps/Minutes x10 Comments PRN with tingling, for HEP windmill Standing Exercise Name clockwise and anti clockwise Side bilateral Resistance #1 DB Reps/Minutes 10 x 2 Comments review HEP, cued GH inferior glide shoulder press Standing Exercise Name unilateral over head press review HEP Side bilateral Equipment Used 4lbs DB Reps/Minutes 12 x2 Comments cued scap depress stab con/ ecc and inf GH head con/ ecc Manual Therapy Treatment Soft Tissue Mobilization manual UT, Lev scap stretch Body Location R Body Position Hooklying Comments Self active STM, education for self stm w/ raquetball in supine. 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 STG Duration 4 weeks Correction Goal (LTG) Pt will be able to tolerate wood chopping and jogging 2-3 times a week without increased in R neck and shoulder discomfort. LTG Duration 8 weeks R ankle strength Impairment Pt has overall decreased R ankle strength with foot slap during gait Ticket Counter Goal (LTG) 06/05 goal met 07/20/20 closely met Pt shows full 4/5 R ankle DF and big toe extension strength . She will regain 5/5 for both strength to improve her gait mechanics LTG Duration 8 weeks special tests for lumbar Impairment +VE slump test Short Term Goal (STG) 06/05 goal met pt is symptoms free for slump test on R and piriformis stretch. Correction Goal (LTG) 07/20/20 pt has pain at low back with supine SLR on RLE. She will be pain free in 8 weeks LTG Duration 8 weeks cervical stability Impairment 60s for flexion hold, 80s for extension hold but pain reported for both Short Term Goal (STG) did not assess 07/20/20 Correction Goal (LTG) Pt will be able hold for both cervical flexion and extension position in supine > 80s without neck pain to improve cervical stability LTG Duration 8 weeks headache Impairment Pt has constant headache througout the day Short Term Goal (STG) 03/30 pt has minor tension headache at the back of the skull mildly everday. But radiating headache/ migraine less than once a week STG Duration 4 weeks Ticket Counter Goal (LTG) pt will have headahce/ migraine episodes no more than once a week. LTG Duration 8 weeks NDI Impairment pt scores 19 Short Term Goal (STG) 07/20/20 pt scores 16 on NDI Ticket Counter Goal (LTG) pt will score <10 for NDL to improve her quality of life special test Impairment pt is +ve for UTTT, compression, foraminal compression, passive neck flexio Short Term Goal (STG) 03/30 goal met pt does not have neurological symptoms with cervical special tests but has difficulty sleeping. See A& P LTG Duration 8 weeks Three Impairment Strength Short Term Goal (STG) The patient will show 5/5 strength throughout her LEs. STG Duration 5 weeks Correction Goal (LTG) The patient will be independent with a home exercise program. LTG Duration 10 weeks Two Impairment Activity tolerance Short Term Goal (STG) The patient will use active standing techniques to capacity planning analyst her kitchen for 30 minutes to cook dinnerwiht 4/10 pain or less. STG Duration 5 weeks Correction Goal (LTG) The patient will walk/hike for 1 hour with pain of 4/10 or less. 01/31 goal met pt reports pain no more than 2 /10 LTG Duration 10 weeks One Impairment Lifting/ yardwork Short Term Goal (STG) The patient will perform a squat with good body mechanics to lift 20 pounds from the ground to waist height without an increase in baseline pain. STG Duration 5 weeks Ticket Counter Goal (LTG) 01/31 cont in progress Pt needs frequent breaks for activities such as lifting and lawnmoning The patient will shovel for 30 minutes without an increase in baseline pain with good body mechanics. LTG Duration 10 weeks Assessment Summary Assessment Reviewed scap stabilization strengthening exercises, cueing scap depression and mirror for self correction. Provided alternative lat pull down for HEP, good feedback response. Pt responded well to nerve glides, found ulnar nerve glide to be beneficial today for decrease in tingling , forgot performed in past, good review. Provided a handout. Pt reports pain 1/10, 'shoulder feels better, neck feels worked out' at the end of tx. Physical Therapy Plan Frequency and Duration Frequency of Treatment 1x/Week Duration of Treatment 8 weeks Plan of Care Start Date 07/20/20 Plan of Care End Date 09/18/20 Therapeutic Interventions Therapeutic Interventions Home Exercise Program,Joint Mobilizations,Manual Therapy, Neuromuscular Re-education, Patient/Caregiver Education, Self-Care/Home Management,Soft Tissue Mobilization,Taping, Therapeutic Activities, Therapeutic Exercises Next Visit Focus/Plan Next Note Type Treatment Note Next Visit Plan Add more appts with PT. Message already sent to desktop specialist. Assess response to nerve glides, manual neck STMs, R shld TB and DB ex. Continue per Pt POC: R shoulder reassessment R shoulder ROM, UBE shoulder press, lat pull down, wall clock, shoulder shrug, snatch step up , SL balance
--- NOTE | 2020-08-24 14:37 | PT.OTN ---
Current Diagnoses Cervicalgia (08/24/20) Occipital neuralgia (08/24/20) Physical Therapy Treatment Note PT-OP-A Visit Information Start: 12/07/19 11:25 Freq: Status: Active Protocol: Document 08/24/20 13:52 SP (Rec: 08/24/20 15:54 SP [id number]) Out-Patient Physical Therapy Visit Information Visit Information Visit Type Treatment Note Visit Note SAAD De La Rosa attended tx. Pt 7 min late for appt. Visit Start Time 13:52 Visit Stop Time 14:37 Total Visit Minutes 44 Visit Number 11/27 Number of STRENGTH AND CONDITIONING COACH Visits 4 PT-OP-B Current Condition Start: 12/07/19 11:25 Freq: Status: Active Protocol: Document 12/07/19 11:26 HH (Rec: 12/07/19 12:01 HH [email or web address]) Current Condition History of Current Condition Onset Date Feb, 2019 Current Complaints Tension headache, Neck pain, numbness in hands History of Current Condition Pt is a 39yo female sustained a concussion and head injury after a fall on the boat in February,. Pt hit the right side of the back of head but she did not seek for medical attention. Pt then experienced headache at the base of skull everyday and radiating pain to temporal region on the R side for 5-10 secs couple times a week, along with R neck pain. She also c/o frequent numbness/ shooting pain down to her 4th and 5th fingers that affects her sleep every night. The vibration of walking downhill, jumping motion tend to exacerbate her symptoms. She also experiences vertigo while looking down and tilting her head back. Pt had brain and neck MRI and both are unremarkable except there are some cervical DJD, centarl canal stenosis C6-c7 and forminal stenosis C5-6. Besides, pt also c/o mid to LBP primarily on the right side. 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 Prior Treatments and Tests Pt is currently going to massage therapist once a week and that tends to her symptoms Pt had brain and neck MRI and both are unremarkable except there are some cervical DJD, centarl canal stenosis C6-c7 and forminal stenosis C5-6. Treatment Goals Patient/Caregiver Goals 1. to be headache free everyday 2. to be able to sleep without tingling sensation/ numbness sensation to her fingers Personal Factors Other Personal Factors That May Effect Post concussion Therapy/Recovery possible TBI PT-OP-C Subjective Start: 12/07/19 11:25 Freq: Status: Active Protocol: Document 08/24/20 13:52 SP (Rec: 08/24/20 15:54 SP [id number]) OP-PT Subjective Patient Comments Patient Comments Pt reported B shlds are sore upon arrival from shoveling her driveway but her back was ok. Pt stated not compliant with HEP due the shoveling activities and busier lately with work. PT-OP-F Manual Assessment Start: 12/07/19 11:25 Freq: Status: Active Protocol: Document 12/07/19 11:26 HH (Rec: 12/07/19 12:01 HH [email or web address]) Manual Assessments Soft Tissue Assessment Soft Tissue Mobility Assessment significant tenderness to pressure at bilateral suboccipital region, proximal R SCM, R levator scap referred pain pattern no noted . Joint Mobility Assessment Joint Mobility Assessment hypomobile with PA at C1-C4, and T1-T4 PT-OP-H Neuro Start: 12/07/19 11:25 Freq: Status: Active Protocol: Document 07/20/20 12:20 HH (Rec: 07/20/20 12:59 HH [email or web address]) Sensation Evaluation Gross Sensation Gross Sensation Right LE Impaired Sensation Description Numbness,Tingling Dermatome Impairments L5,S1 PT-OP-K Range of Motion Start: 12/07/19 11:25 Freq: Status: Active Protocol: Document 12/07/19 11:26 HH (Rec: 12/07/19 12:01 HH [email or web address]) Cervical Spine Range of Motion Cervical Spine Active Percentage Testing Position Sitting Comments no limitation noted for AROM but pulling sensation noted at midback with cervical flexion pinching pain noted with cervical extension and cervical extension +rotation PT-OP-L Special Tests Start: 12/07/19 11:25 Freq: Status: Active Protocol: Document 07/20/20 12:20 HH (Rec: 07/20/20 12:59 HH [email or web address]) Special Tests Lumbar Spine Special Tests Straight Leg Raise Test Results +VE on R Comments pain at low back at hip flexion at 90 degrees PT-OP-M Strength Start: 12/07/19 11:25 Freq: Status: Active Protocol: Document 07/20/20 12:20 HH (Rec: 07/20/20 12:59 HH [email or web address]) Hip Strength Hip Manual Muscle Testing Right Flexion (L2) 5 Normal Extension (S1) 5 Normal Abduction 5 Normal Adduction 5 Normal External Rotation 5 Normal Internal Rotation 5 Normal Left Flexion (L2) 5 Normal Extension (S1) 5 Normal Abduction 5 Normal Adduction 5 Normal External Rotation 4- Good- Internal Rotation 5 Normal Knee Strength Knee Manual Muscle Testing Right Flexion (S2) 5 Normal Extension (L3) 5 Normal Left Flexion (S2) 5 Normal Extension (L3) 5 Normal Ankle/Foot Strength Ankle and Foot Manual Muscle Testing Left Dorsiflexion (L4) 5 Normal Plantarflexion (S1) 5 Normal Inversion 5 Normal Eversion (S1) 5 Normal Right Dorsiflexion (L4) 4- Good- Plantarflexion (S1) 5 Normal Inversion 5 Normal Eversion (S1) 5 Normal Toe Strength Toe Manual Muscle Testing Left Great Toe Flexion 5 Normal Extension 5 Normal Right Great Toe Flexion 5 Normal Extension 4 Good PT-OP-Q Treatments Start: 12/07/19 11:25 Freq: Status: Active Protocol: Document 08/24/20 13:52 SP (Rec: 08/24/20 15:54 SP [id number]) Cardio Equipment Upper Body Ergometer (UBE) Duration (Minutes) 6 RPM 80 Seat Position sitting Height 3 Other 80RPM , 19calories , 2-3MET Therapeutic Exercises Standing Exercises squat row cable/TB Standing Exercise Name assimulate pulling objects at work Side bilateral Resistance 15# cable, Tb #3 home provided Reps/Minutes x10 Comments cued straight back (PPT awareness), hip hinge WBOS, lift glut fac to chest modified reverse lunge 1/2 kneel Standing Exercise Name assimulate 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 Side bilateral Resistance Tb #3 Equipment Used cable column anchor TB and facilitation f/b wt shift lunge between LEs Reps/Minutes x10 Comments cued straight back (PPT awareness), hip hinge moBOS, core/glut fac deadlift>snatch Side bilateral Resistance 8#>25# DB (assimulate bag weeds, rocks) Reps/Minutes x10 total Comments cued straight back (PPT awareness), hip hinge WBOS, lift glut fac to chest Self-Care/Home Management Treatment Education Patient Education Body Mechanics,Home Exercise Program,Joint Protection,Pain Management,Posture,Safety Other Education Education for proper body mechanics and back/pelvic alignment during ther ex to allow decreased to no back pain while lifting/ pulling at work with verbal and demonstration better carryover . 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 STG Duration 4 weeks Shelter Goal (LTG) Pt will be able to tolerate wood chopping and jogging 2-3 times a week without increased in R neck and shoulder discomfort. LTG Duration 8 weeks R ankle strength Impairment Pt has overall decreased R ankle strength with foot slap during gait Service Desk Agent Goal (LTG) 06/05 goal met 07/20/20 closely met Pt shows full 4/5 R ankle DF and big toe extension strength . She will regain 5/5 for both strength to improve her gait mechanics LTG Duration 8 weeks special tests for lumbar Impairment +VE slump test Short Term Goal (STG) 06/05 goal met pt is symptoms free for slump test on R and piriformis stretch. Shelter Goal (LTG) 07/20/20 pt has pain at low back with supine SLR on RLE. She will be pain free in 8 weeks LTG Duration 8 weeks cervical stability Impairment 60s for flexion hold, 80s for extension hold but pain reported for both Short Term Goal (STG) did not assess 07/20/20 Shelter Goal (LTG) Pt will be able hold for both cervical flexion and extension position in supine > 80s without neck pain to improve cervical stability LTG Duration 8 weeks headache Impairment Pt has constant headache througout the day Short Term Goal (STG) 03/30 pt has minor tension headache at the back of the skull mildly everday. But radiating headache/ migraine less than once a week STG Duration 4 weeks Service Desk Agent Goal (LTG) pt will have headahce/ migraine episodes no more than once a week. LTG Duration 8 weeks NDI Impairment pt scores 19 Short Term Goal (STG) 07/20/20 pt scores 16 on NDI Service Desk Agent Goal (LTG) pt will score <10 for NDL to improve her quality of life special test Impairment pt is +ve for UTTT, compression, foraminal compression, passive neck flexio Short Term Goal (STG) 03/30 goal met pt does not have neurological symptoms with cervical special tests but has difficulty sleeping. See A& P LTG Duration 8 weeks Three Impairment Strength Short Term Goal (STG) The patient will show 5/5 strength throughout her LEs. STG Duration 5 weeks Service Desk Agent Goal (LTG) The patient will be independent with a home exercise program. LTG Duration 10 weeks Two Impairment Activity tolerance Short Term Goal (STG) The patient will use active standing techniques to operations intelligence superintendent her kitchen for 30 minutes to cook dinnerwiht 4/10 pain or less. STG Duration 5 weeks Shelter Goal (LTG) The patient will walk/hike for 1 hour with pain of 4/10 or less. 01/31 goal met pt reports pain no more than 2 /10 LTG Duration 10 weeks One Impairment Lifting/ yardwork Short Term Goal (STG) The patient will perform a squat with good body mechanics to lift 20 pounds from the ground to waist height without an increase in baseline pain. STG Duration 5 weeks Service Desk Agent Goal (LTG) 01/31 cont in progress Pt needs frequent breaks for activities such as lifting and lawnmoning The patient will shovel for 30 minutes without an increase in baseline pain with good body mechanics. LTG Duration 10 weeks Assessment Summary Assessment Tx focused on functional strengthening exercises/ motions with education and cuing for proper back and trunk alignment for back safety with improvement in self corrections. Recommend repeating today's exercises next tx. Pt would like to work next tx on incorporating balance. Pt found today's ther ex helpful and will carryover back posture and lifting mechanics at work lifting, pulling things. Physical Therapy Plan Frequency and Duration Frequency of Treatment 1x/Week Duration of Treatment 8 weeks Plan of Care Start Date 07/20/20 Plan of Care End Date 09/18/20 Therapeutic Interventions Therapeutic Interventions Home Exercise Program,Joint Mobilizations,Manual Therapy, Neuromuscular Re-education, Patient/Caregiver Education, Self-Care/Home Management,Soft Tissue Mobilization,Taping, Therapeutic Activities, Therapeutic Exercises Next Visit Focus/Plan Next Note Type Treatment Note Next Visit Plan Assess response to last tx: squat row, modified 1/2 kneel lunge back health, snatch for body mechanics for lifting at work. Continue per Pt POC: R shoulder reassessment R shoulder ROM, UBE shoulder press, lat pull down, wall clock, shoulder shrug, step up , SL balance
--- NOTE | 2020-09-14 12:15 | PT.OTN ---
Current Diagnoses Cervicalgia (09/14/20) Occipital neuralgia (09/14/20) Physical Therapy Treatment Note PT-OP-A Visit Information Start: 12/07/19 11:25 Freq: Status: Active Protocol: Document 09/14/20 10:35 HH (Rec: 09/14/20 11:18 HH [id number]) Out-Patient Physical Therapy Visit Information Visit Information Visit Type Progress Note Visit Start Time 10:32 Visit Stop Time 11:15 Total Visit Minutes 43 Visit Number 12/28 Number of SHUT OFF WORKER Visits 0 PT-OP-B Current Condition Start: 12/07/19 11:25 Freq: Status: Active Protocol: Document 12/07/19 11:26 HH (Rec: 12/07/19 12:01 HH [email or web address]) Current Condition History of Current Condition Onset Date Feb, 2019 Current Complaints Tension headache, Neck pain, numbness in hands History of Current Condition Pt is a 39yo female sustained a concussion and head injury after a fall on the boat in February,. Pt hit the right side of the back of head but she did not seek for medical attention. Pt then experienced headache at the base of skull everyday and radiating pain to temporal region on the R side for 5-10 secs couple times a week, along with R neck pain. She also c/o frequent numbness/ shooting pain down to her 4th and 5th fingers that affects her sleep every night. The vibration of walking downhill, jumping motion tend to exacerbate her symptoms. She also experiences vertigo while looking down and tilting her head back. Pt had brain and neck MRI and both are unremarkable except there are some cervical DJD, centarl canal stenosis C6-c7 and forminal stenosis C5-6. Besides, pt also c/o mid to LBP primarily on the right side. 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 Prior Treatments and Tests Pt is currently going to massage therapist once a week and that tends to her symptoms Pt had brain and neck MRI and both are unremarkable except there are some cervical DJD, centarl canal stenosis C6-c7 and forminal stenosis C5-6. Treatment Goals Patient/Caregiver Goals 1. to be headache free everyday 2. to be able to sleep without tingling sensation/ numbness sensation to her fingers Personal Factors Other Personal Factors That May Effect Post concussion Therapy/Recovery possible TBI PT-OP-C Subjective Start: 12/07/19 11:25 Freq: Status: Active Protocol: Document 09/14/20 10:35 HH (Rec: 09/14/20 11:18 HH [id number]) OP-PT Subjective Patient Comments Patient Comments Natalia been doing pretty good so far. I can hike and walk on uneven roads without hurting and i havent run yet. I think i can be DC at this point. I think i just need more strengthening work to build up my tolerance. Patient Reported Progress Improving PT-OP-F Manual Assessment Start: 12/07/19 11:25 Freq: Status: Active Protocol: Document 12/07/19 11:26 HH (Rec: 12/07/19 12:01 HH [email or web address]) Manual Assessments Soft Tissue Assessment Soft Tissue Mobility Assessment significant tenderness to pressure at bilateral suboccipital region, proximal R SCM, R levator scap referred pain pattern no noted . Joint Mobility Assessment Joint Mobility Assessment hypomobile with PA at C1-C4, and T1-T4 PT-OP-H Neuro Start: 12/07/19 11:25 Freq: Status: Active Protocol: Document 07/20/20 12:20 HH (Rec: 07/20/20 12:59 HH [email or web address]) Sensation Evaluation Gross Sensation Gross Sensation Right LE Impaired Sensation Description Numbness,Tingling Dermatome Impairments L5,S1 PT-OP-K Range of Motion Start: 12/07/19 11:25 Freq: Status: Active Protocol: Document 12/07/19 11:26 HH (Rec: 12/07/19 12:01 HH [email or web address]) Cervical Spine Range of Motion Cervical Spine Active Percentage Testing Position Sitting Comments no limitation noted for AROM but pulling sensation noted at midback with cervical flexion pinching pain noted with cervical extension and cervical extension +rotation PT-OP-L Special Tests Start: 12/07/19 11:25 Freq: Status: Active Protocol: Document 07/20/20 12:20 HH (Rec: 07/20/20 12:59 HH [email or web address]) Special Tests Lumbar Spine Special Tests Straight Leg Raise Test Results +VE on R Comments pain at low back at hip flexion at 90 degrees PT-OP-M Strength Start: 12/07/19 11:25 Freq: Status: Active Protocol: Document 07/20/20 12:20 HH (Rec: 07/20/20 12:59 HH [email or web address]) Hip Strength Hip Manual Muscle Testing Right Flexion (L2) 5 Normal Extension (S1) 5 Normal Abduction 5 Normal Adduction 5 Normal External Rotation 5 Normal Internal Rotation 5 Normal Left Flexion (L2) 5 Normal Extension (S1) 5 Normal Abduction 5 Normal Adduction 5 Normal External Rotation 4- Good- Internal Rotation 5 Normal Knee Strength Knee Manual Muscle Testing Right Flexion (S2) 5 Normal Extension (L3) 5 Normal Left Flexion (S2) 5 Normal Extension (L3) 5 Normal Ankle/Foot Strength Ankle and Foot Manual Muscle Testing Left Dorsiflexion (L4) 5 Normal Plantarflexion (S1) 5 Normal Inversion 5 Normal Eversion (S1) 5 Normal Right Dorsiflexion (L4) 4- Good- Plantarflexion (S1) 5 Normal Inversion 5 Normal Eversion (S1) 5 Normal Toe Strength Toe Manual Muscle Testing Left Great Toe Flexion 5 Normal Extension 5 Normal Right Great Toe Flexion 5 Normal Extension 4 Good PT-OP-Q Treatments Start: 12/07/19 11:25 Freq: Status: Active Protocol: Document 09/14/20 10:35 (Rec: 09/14/20 11:18 [id number]) Therapeutic Exercises Prone Exercises bend over row Side bilateral Equipment Used 8lbs DB Reps/Minutes 10 x2 Comments for HEP Standing Exercises D2 flexoin Side bilateral Equipment Used level 1 band Other Exercises shoulder taps Side bilateral Reps/Minutes 10 x 2 push up plus Side bilateral Reps/Minutes 10 x2 shoulder shrugs Side bilateral Equipment Used 8 lbs DB Reps/Minutes 10 x 2 Comments for HEP. 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 STG Duration 4 weeks Strip Tank Tender Goal (LTG) Pt will be able to tolerate wood chopping and jogging 2-3 times a week without increased in R neck and shoulder discomfort. LTG Duration 8 weeks R ankle strength Impairment Pt has overall decreased R ankle strength with foot slap during gait Fpc Goal (LTG) 06/05 goal met 07/20/20 closely met Pt shows full 4/5 R ankle DF and big toe extension strength . She will regain 5/5 for both strength to improve her gait mechanics LTG Duration 8 weeks special tests for lumbar Impairment +VE slump test Short Term Goal (STG) 06/05 goal met pt is symptoms free for slump test on R and piriformis stretch. Fpc Goal (LTG) 07/20/20 pt has pain at low back with supine SLR on RLE. She will be pain free in 8 weeks LTG Duration 8 weeks cervical stability Impairment 60s for flexion hold, 80s for extension hold but pain reported for both Short Term Goal (STG) did not assess 07/20/20 Strip Tank Tender Goal (LTG) Pt will be able hold for both cervical flexion and extension position in supine > 80s without neck pain to improve cervical stability LTG Duration 8 weeks headache Impairment Pt has constant headache througout the day Short Term Goal (STG) 03/30 pt has minor tension headache at the back of the skull mildly everday. But radiating headache/ migraine less than once a week STG Duration 4 weeks Fpc Goal (LTG) pt will have headahce/ migraine episodes no more than once a week. LTG Duration 8 weeks NDI Impairment pt scores 19 Short Term Goal (STG) 07/20/20 pt scores 16 on NDI Fpc Goal (LTG) pt will score <10 for NDL to improve her quality of life special test Impairment pt is +ve for UTTT, compression, foraminal compression, passive neck flexio Short Term Goal (STG) 03/30 goal met pt does not have neurological symptoms with cervical special tests but has difficulty sleeping. See A& P LTG Duration 8 weeks Progress Towards Goals Progress Towards Goals Progressing Toward Goals Assessment Summary Assessment Pt stated she has been doing well. No more foot drop nor back pain but does have residual discomfort at R neck and shoulder after lifting, wood chopping. Provided pt a series of HEP primarily focuses on scap stabilization and shoulder strnegthening. Pt ranjit session very well. Will call pt in a few weeks to check her progress and DC after. Physical Therapy Plan Frequency and Duration Frequency of Treatment 1x/Week Duration of Treatment 8 weeks Plan of Care Start Date 07/20/20 Plan of Care End Date 09/18/20
--- NOTE | 2020-11-06 09:35 | PT.OPDS ---
Current Diagnoses Cervicalgia (09/14/20) Occipital neuralgia (09/14/20) Visit Care Team Role Provider Type Deb Ledesma PA-C Primary Care Provider [employer] Specialty: Medical Address: [address], [address] Email: [email or web address] Caryn Ewing DO Attending Provider Non-Staff Referring Provider Specialty: Psychiatry Address: [address] [place] [address], [address] Email: Visit Number Visit Number 12/28 Discharge Summary PT-OP-T Assessment and Plan Start: 12/07/19 11:25 Freq: Status: Active Protocol: Document 11/06/20 09:30 HH (Rec: 11/06/20 09:35 HH [email or web address]) Physical Therapy Plan Discharge Physical Therapy Discharge Reasons No Longer Attending PT Discharge Comments Per last phone call, pt requested to schedule more visits to continue strengthening program but she cancelled afterwards. DC pt from PT since she is no longer attending PT and she reached most of her goals.
== END 2020-11-06 14:35 | disposition home or self-care (01) ==
LOC: PHYS 10:30
PROVIDERS: PCP Physician Assistant; Referring Provider Psychiatry & Neurology Neurology; Visit Provider Psychiatry & Neurology Neurology
DX: M54.2 Cervicalgia (principal); M54.81 Occipital neuralgia
CPT/HCPCS: 95851; 97110; 97112; 97116; 97140; 97162; 97164; 97535; 97750

== ENCOUNTER → 2021-01-26 09:43 | Outpatient (CLI) | payer OTHER, MEDICAID, SELFPAY ==
--- NOTE | 2021-01-26 10:04 | DI.RAD.S_ITS ---
PROCEDURE: XR CHEST 2V INDICATIONS: chest congestion, cough, chills TECHNIQUE: 2 views of the chest were acquired. COMPARISON: None. FINDINGS: Surgical changes and devices: None. Lungs and pleura: Lungs are clear. No pleural effusions or pneumothorax. Mediastinum: Mediastinal contours are normal. Heart size is normal. Bones and chest wall: No suspicious bony abnormalities. Soft tissues appear unremarkable. IMPRESSION: No acute cardiopulmonary abnormality. Dictated by: José Miguel Valencia M.D. on 01/26/2021 at 9:17 Approved by: José Miguel Valencia M.D. on 01/26/2021 at 9:18
[2021-01-26 10:25] LABS: COVID19 -Nasal RAPID Negative (Negative)
== END ==
PROVIDERS: PCP Registered Nurse Diabetes Educator; Referring Provider Physician Assistant; Visit Provider Physician Assistant
DX: R05 Cough (principal); R09.89 Other specified symptoms and signs involving the circulatory and respiratory systems; R50.9 Fever, unspecified; R53.83 Other fatigue
CPT/HCPCS: 71046; 87635

== ENCOUNTER → 2021-04-11 06:51 | Outpatient (CLI) | payer OTHER, MEDICAID, SELFPAY ==
[2021-04-11 08:15] LABS: Erythrocyte Sedimentation Rate 13 MM/HR (0-20)
[2021-04-11 08:17] LABS: Alanine Aminotransferase 48 IU/L (<35); Albumin 4.1 g/dL (3.5-5.0); Albumin Globulin Ratio 1.7 (1.0-2.8); Alkaline Phosphatase 67 U/L (38-126); Aspartate Aminotransferase 40 IU/L (14-36); Bilirubin Total 0.4 mg/dL (0.2-1.3); Bilirubin Unconjugated 0.5 mg/dL (0.0-1.1); Globulin 2.4 g/dL (1.7-4.1); Total Protein 6.5 g/dL (6.3-8.2)
[2021-04-11 08:41] LABS: C-Reactive Protein Quant 0.6 mg/dL (<1.0); HEMOLYSIS < 15 (0-50); Rheumatoid Factor < 8.6 IU/mL (<12.0)
[2021-04-13 20:36] LABS: CCP Antibodies IgG/IgA 134 units (0-19)
[2021-04-14 17:37] LABS: ANA Screen, IFA Positive (.)
== END ==
PROVIDERS: PCP Registered Nurse Diabetes Educator; Referring Provider Registered Nurse Diabetes Educator; Visit Provider Registered Nurse Diabetes Educator
DX: M25.50 Pain in unspecified joint (principal); R74.8 Abnormal levels of other serum enzymes
CPT/HCPCS: 36415; 80076; 85651; 86038; 86140; 86200; 86430

== ENCOUNTER 2021-09-13 08:15 | Outpatient (RCR) | payer OTHER, MEDICAID, SELFPAY ==
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
--- NOTE | 2021-06-28 14:53 | PT.OPPOC ---
Physical, Occupational & Speech Therapy At 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 Care Provider Specialty: Medical Address: [address] [place] [address], [id number] Email: [email or web address] Giovany Concepcion MD Attending Provider Non-Staff Referring Provider Specialty: Medical Address: [address] [place] [address], [id number] Email: Plan Of Care PT-OP-T Assessment and Plan Start: 05/03/21 09:57 Freq: Status: Active Protocol: Document 06/28/21 08:24 AMB (Rec: 06/28/21 08:55 AMB [id number]) Physical Therapy Assessment Goals Balance Short Term Goal (STG) Kristen will be independent with a balance and central vestibular HEP. STG Duration 4 weeks Residential Goal (LTG) Kristen will be able to perform single leg stance for 30 seconds without LOB. LTG Duration 8 weeks activity tolerance Impairment poor endurance in general Short Term Goal (STG) pt will be able to carry backpack on her shoulder while hiking without pain > 2/10 STG Duration 4 weeks Station Baggage Agent Goal (LTG) pt will be able to carry 20 backpack on her shoulder for backpacking trip without pain > 2/10 LTG Duration 8 weeks cervical and lumbar stability Impairment decreased spinal stability Short Term Goal (STG) pt will show improved cervical and lumbar stability by completing endurance test > 10s than baseline results. STG Duration 4 weeks Station Baggage Agent Goal (LTG) pt will show improved cervical and lumbar stability by completing endurance test > 20s than baseline results. This allows her to be less likely to look for surface for neck and back support. LTG Duration 8weeks NDI/ Owestry Impairment NDI 19, Owestry = 26 Short Term Goal (STG) pt will show overall improved pain, mobility and activity tolerance by scoring >5 points of both NDI and Owestry LBP questionnaire. STG Duration 4 weeks Residential Goal (LTG) pt will show overall improved pain, mobility and activity tolerance by scoring >10 points of both NDI and Owestry LBP questionnaire. LTG Duration 8 weeks Assessment Summary Assessment Kristen needed reminders on a few of the items that she has been working on in PT. Also discussed the chronic nature of her diagnosis, and pain management in general. She would benefit from more of a balance/central vestibular look at her deficits as well. PT will also continue on with pain management, with special attention to her shoulder/ scapula as this is an area she requests more help with an indepedent program for when her pain increases. Physical Therapy Plan Frequency and Duration Frequency of Treatment 2x/Week Duration of Treatment 8 weeks Plan of Care Start Date 06/28/21 Plan of Care End Date 08/23/21 Therapeutic Interventions Therapeutic Interventions Aquatic Therapy,Balance Training,Gait Training,Home Exercise Program,Joint Mobilizations,Manual Therapy, Neuromuscular Re-education, Patient/Caregiver Education, Self-Care/Home Management,Soft Tissue Mobilization,Taping, Therapeutic Activities, Therapeutic Exercises Modalities Cold Pack/Ice Massage,Electric Stimulation,Hot Packs, Traction- Mechanical, Ultrasound Next Visit Focus/Plan Next Note Type Treatment Note Next Visit Plan review cat camel, open book initiate overall shoulder strengthening (rotation ) and core strnegthening Follow up on balance training/ VOR Plan of Care Dates Plan of Care Start Date 06/28/21 Plan of Care End Date 08/23/21 Electronically Signed by: Madeline Prasad, PT 07/04/21 [id number] Please Sign and Return: I have reviewed this Plan of Care and certify that the skilled therapy services above are required to meet the patient?s needs. Physician Signature Date Printed Name and Credentials Clinical Instructor Signature Printed Name and Credentials
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
--- NOTE | 2021-09-13 16:03 | PT.OPPOC ---
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 STG Duration MET Forest And Conservation Worker Goal (LTG) Kristen will be able to perform single leg stance for 30 seconds without LOB. LTG Duration MET activity tolerance Impairment poor endurance in general Short Term Goal (STG) pt will be able to carry backpack on her shoulder while hiking without pain > 2/10 08/20/21: Hasn't done this since last summer, at that time pain wall in her hips causing her to have to stop and shld pain on/ off R shld. R shld pulling blanket over her felt painful grinding. STG Duration 4 weeks Forest And Conservation Worker Goal (LTG) pt will be able to carry 20 backpack on her shoulder for backpacking trip without pain > 2/10 LTG Duration 8 weeks cervical and lumbar stability Impairment decreased spinal stability Short Term Goal (STG) pt will show improved cervical and lumbar stability by completing endurance test > 10s than baseline results. STG Duration 4 weeks Group Home Goal (LTG) pt will show improved cervical and lumbar stability by completing endurance test > 20s than baseline results. This allows her to be less likely to look for surface for neck and back support. LTG Duration 8weeks NDI/ Owestry Impairment NDI 19, Owestry = 26 Short Term Goal (STG) pt will show overall improved pain, mobility and activity tolerance by scoring >5 points of both NDI and Owestry LBP questionnaire. STG Duration 4 weeks Forest And Conservation Worker Goal (LTG) pt will show overall improved pain, mobility and activity tolerance by scoring >10 points of both NDI and Owestry LBP questionnaire. LTG Duration 8 weeks Assessment Summary Assessment Cat feels ready for discharge at this point. Encouraged her to continue with HEP/yoga/ pilates reformer classes for continued stability training, ice/brace elbow, continued yoga ball and theraband exercises for neck/back/ shoulder stability. Pt overall feels pain is better because she has cut her work hours down. Does feel that balance is better because was [place] much [place]. Pt continues to have chronic pain that limits her with her work, but has a plan for how to manage it in the future. Physical Therapy Plan Frequency and Duration Frequency of Treatment 1x/Week Duration of Treatment 4 weeks Plan of Care Start Date 08/23/21 Plan of Care End Date 09/20/21 Therapeutic Interventions Therapeutic Interventions Aquatic Therapy,Balance Training,Gait Training,Home Exercise Program,Joint Mobilizations,Manual Therapy, Neuromuscular Re-education, Patient/Caregiver Education, Self-Care/Home Management,Soft Tissue Mobilization,Taping, Therapeutic Activities, Therapeutic Exercises Modalities Cold Pack/Ice Massage,Electric Stimulation,Hot Packs, Traction- Mechanical, Ultrasound Discharge Physical Therapy Discharge Reasons Patient Request Plan of Care Dates Plan of Care Start Date 08/23/21 Plan of Care End Date 09/20/21 Electronically Signed by: Madeline Prasad, PT 09/13/21 [id number] Please Sign and Return: I have reviewed this Plan of Care and certify that the skilled therapy services above are required to meet the patient?s needs. Physician Signature Date Printed Name and Credentials Clinical Instructor Signature Printed Name and Credentials
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
== END 2021-09-14 13:16 ==
LOC: PHYS 08:15
PROVIDERS: Family Provider Registered Nurse Diabetes Educator; PCP Registered Nurse Diabetes Educator; Referring Provider Neuromusculoskeletal Medicine, Sports Medicine; Visit Provider Neuromusculoskeletal Medicine, Sports Medicine
DX: F07.81 Postconcussional syndrome (principal)
CPT/HCPCS: 97110; 97112; 97140; 97163; 97535

== ENCOUNTER 2021-09-25 08:30 | Outpatient (RCR) | payer OTHER, MEDICAID, SELFPAY ==
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
== END 2022-02-08 10:43 ==
LOC: SP 08:30
PROVIDERS: Family Provider Registered Nurse Diabetes Educator; PCP Registered Nurse Diabetes Educator; Referring Provider Neuromusculoskeletal Medicine, Sports Medicine; Visit Provider Neuromusculoskeletal Medicine, Sports Medicine
DX: F07.81 Postconcussional syndrome (principal)
CPT/HCPCS: 96125; 97129; 97130

== ENCOUNTER → 2021-11-15 10:30 | Outpatient (CLI) | payer OTHER, MEDICAID, SELFPAY ==
--- NOTE | 2021-11-15 | DI.MG.S_ITS ---
BILATERAL DIGITAL SCREENING MAMMOGRAM 3D/2D WITH CAD: 11/15/2021 CLINICAL: Routine screening. Family history of breast cancer. Comparison is made to exams dated: 08/22/2020 mammogram, 09/06/2019 mammogram, and 03/26/2017 mammogram - [facility]. The tissue of both breasts is heterogeneously dense. This may lower the sensitivity of mammography. Current study was also evaluated with a Computer Aided Detection (CAD) system. There is a benign calcification in the right breast. No significant masses, calcifications, or other findings are seen in either breast. There has been no significant interval change. IMPRESSION: BENIGN There is no mammographic evidence of malignancy. A 1 year screening mammogram is recommended. This exam was interpreted at Station ID: [id number]. NOTE: For mammograms, a report in lay terms will be sent to the patient. Approximately 15% of breast malignancies will not be visualized mammographically. In the management of a palpable breast mass, a negative mammogram must not discourage biopsy of a clinically suspicious lesion. Electronically Signed By: Roger Odell acr/penrad:11/15/2021 13:45:28 letter sent: Normal Exam ACR BI-RADS Category 2: Benign Finding(s) 3342F
--- NOTE | 2021-11-15 10:35 | DI.RAD.S_ITS ---
PROCEDURE: XR FINGER RT MIN 2V INDICATIONS: eval R 4th finger DIP TTP and mass TECHNIQUE: AP hand, 2 views of the 4th finger(s) acquired. COMPARISON: [facility], US, US EXTREMELY NONVASC UPPER RT, 11/15/2021, 10:55. FINDINGS: Bones: No fractures or dislocations. No suspicious bony lesions. No bony erosions or periosteal reaction. Soft tissues: No suspicious soft tissue calcifications. There is a 0.7 cm soft tissue density around the 4th proximal interphalangeal joint. IMPRESSION: ? Mass in the 4th finger adjacent to the 4th proximal interphalangeal joint. The comparison ultrasound showed no mass. If clinical symptoms persist, MRI with and without contrast is recommended. Dictated by: Arnaldo Monaco M.D. on 11/15/2021 at 17:48 Approved by: Arnaldo Monaco M.D. on 11/15/2021 at 17:51
--- NOTE | 2021-11-15 10:35 | DI.US.S_ITS ---
PROCEDURE: US EXTREMELY NONVASC UPPER RT INDICATIONS: eval R 4th finger DIP TTP and mass TECHNIQUE: Real-time scanning was performed of the right 4th digit digit , with image documentation. COMPARISON: [facility], EXTREMITY NON-VASCULAR LTD, 06/09/2017, 7:39. FINDINGS: No mass is appreciated in the area of clinical concern. IMPRESSION: No significant abnormality. Dictated by: Will Blandon M.D. on 11/15/2021 at 11:50 Approved by: Will Blandon M.D. on 11/15/2021 at 11:53
[2021-11-15 12:28] LABS: Alanine Aminotransferase 278 IU/L (<35); Albumin 4.3 g/dL (3.5-5.0); Albumin Globulin Ratio 1.7 (1.0-2.8); Alkaline Phosphatase 72 U/L (38-126); Aspartate Aminotransferase 145 IU/L (14-36); Bilirubin Total 0.5 mg/dL (0.2-1.3); Bilirubin Unconjugated 0.4 mg/dL (0.0-1.1); Globulin 2.5 g/dL (1.7-4.1); HEMOLYSIS < 15 (0-50); Total Protein 6.8 g/dL (6.3-8.2)
== END ==
PROVIDERS: Family Provider Registered Nurse Diabetes Educator; PCP Registered Nurse Diabetes Educator; Referring Provider Registered Nurse Diabetes Educator; Visit Provider Registered Nurse Diabetes Educator
DX: Z80.3 Family history of malignant neoplasm of breast (principal); R22.31 Localized swelling, mass and lump, right upper limb; M79.644 Pain in right finger(s); Z12.31 Encounter for screening mammogram for malignant neoplasm of breast; K76.0 Fatty (change of) liver, not elsewhere classified
CPT/HCPCS: 36415; 73140; 76882; 77063; 77067; 80076

== ENCOUNTER → 2021-12-28 07:22 | Outpatient (CLI) | payer OTHER, MEDICAID, SELFPAY ==
[2021-12-28 09:50] LABS: Alanine Aminotransferase 34 IU/L (<35); Albumin Globulin Ratio 1.6 (1.0-2.8); Alkaline Phosphatase 53 U/L (38-126); Aspartate Aminotransferase 36 IU/L (14-36); Bilirubin Total 0.7 mg/dL (0.2-1.3); Bilirubin Unconjugated 0.8 mg/dL (0.0-1.1); Globulin 2.5 g/dL (1.7-4.1); HEMOLYSIS < 15 (0-50); Total Protein 6.5 g/dL (6.3-8.2)
== END ==
PROVIDERS: Family Provider Registered Nurse Diabetes Educator; PCP Registered Nurse Diabetes Educator; Referring Provider Registered Nurse Diabetes Educator; Visit Provider Registered Nurse Diabetes Educator
DX: K76.0 Fatty (change of) liver, not elsewhere classified (principal); R74.8 Abnormal levels of other serum enzymes
CPT/HCPCS: 36415; 80076

== ENCOUNTER → 2022-01-02 15:40 | Outpatient (CLI) | payer OTHER, MEDICAID, SELFPAY ==
--- NOTE | 2022-01-02 15:42 | DI.MRI.S_ITS ---
PROCEDURE: MR HAND RT WO/W CON INDICATIONS: Localized swelling, mass and lump,right hand/thigh TECHNIQUE: Noncontrast coronal T1 spin echo and STIR, sagittal T1 spin echo with fat saturation and STIR, axial T1 spin echo and T2 fast spin echo with fat saturation. After the administration of contrast, axial/sagittal/coronal T1 spin echo with fat saturation through the right hand . COMPARISON: None. FINDINGS: Image quality: Excellent. Bones: Fiducial marker is placed over volar and slightly radial aspect of 4th finger at the level of 4th DIP joint. The visualized bone marrow demonstrates normal signal on all sequences. The overlying cortex appears intact. No abnormal intraosseous enhancement. Soft tissues: No soft tissue masses are visualized. Possible ganglion cyst over volar aspect of distal ulnar and ulnar styloid is seen and measures up to 1 x 1.4 x 2.9 cm in size. No contrast enhancement is noted within this structure. The scanned muscles demonstrate normal overall bulk and internal signal. No abnormal soft tissue enhancement. IMPRESSION: 1. No discrete soft tissue mass or fluid collection is seen over volar aspect of 2nd digit at patient's reported area of swelling/lump. Possible ganglion cyst over volar aspect of wrist joint as above. No abnormal soft tissue enhancement is seen. 2. No marrow signal abnormality. No intraosseous lesion or abnormal intraosseous enhancement. No fracture or dislocation. 3. Tendons and ligaments of right hand and wrist are grossly intact. Dictated by: Adam Yu M.D. on 01/03/2022 at 11:18 Approved by: Adam Yu M.D. on 01/03/2022 at 11:23
--- NOTE | 2022-01-02 15:42 | DI.MRI.S_ITS ---
PROCEDURE: MR FEMUR RT WO/W CON INDICATIONS: Localized swelling, mass and lump,right hand/thigh TECHNIQUE: Noncontrast coronal T1 spin echo and STIR, sagittal T1 spin echo with fat saturation and STIR, axial T1 spin echo and T2 fast spin echo with fat saturation. After the administration of contrast, axial/sagittal/coronal T1 spin echo with fat saturation through the right thigh. COMPARISON: None. FINDINGS: Image quality: Excellent. Bones: The visualized bone marrow demonstrates normal signal on all sequences. The overlying cortex appears intact. No abnormal intraosseous enhancement. Soft tissues: No soft tissue masses are visualized. The scanned muscles demonstrate normal overall bulk and internal signal. Subcutaneous tissues appear normal as well. No abnormal soft tissue enhancement. IMPRESSION: 1. No soft tissue mass or fluid collection is seen in right thigh . No area of abnormal soft tissue enhancement. 2. No area of abnormal intraosseous enhancement. No marrow edema. No fracture or dislocation. No suspicious intraosseous lesion. 3. No gross muscle or tendon signal abnormality. Dictated by: Adam Yu M.D. on 01/03/2022 at 11:23 Approved by: Adam Yu M.D. on 01/03/2022 at 12:30
== END ==
PROVIDERS: Family Provider Registered Nurse Diabetes Educator; PCP Registered Nurse Diabetes Educator; Referring Provider Registered Nurse Diabetes Educator; Visit Provider Registered Nurse Diabetes Educator
DX: R22.31 Localized swelling, mass and lump, right upper limb (principal); R22.41 Localized swelling, mass and lump, right lower limb
CPT/HCPCS: 73220; 73720; A9579

== ENCOUNTER → 2022-06-06 07:34 | Outpatient (CLI) | payer OTHER, MEDICAID, SELFPAY ==
[2022-06-08 11:23] LABS: Almond IgE 3.45 kU/L (Class III); Cashew Nut IgE <0.10 kU/L (Class 0); Codfish Allergy IgE < 0.10 kU/L (Class 0); Egg White IgE <0.10 kU/L (Class 0); Milk IgE <0.10 kU/L (Class 0); Peanut IgE 6.14 kU/L (Class IV); Salmon Allergy IgE < 0.10 kU/L (Class 0); Scallop Allergy IgE 2.02 kU/L (Class III); Sesame seed Allergy IgE 5.15 kU/L (Class IV); Shrimp IgE 0.34 kU/L (Class I); Soybean IgE 3.85 kU/L (Class III); Tuna Allergy IgE < 0.10 kU/L (Class 0); Wheat Allergy IgE 4.79 kU/L (Class IV)
[2022-06-08 15:35] LABS: Alder IgE 3.64 kU/L (Class III); Alternaria alternata IgE <0.10 kU/L (Class 0); Aspergillus fumigatus IgE <0.10 kU/L (Class 0); Box Elder IgE 5.84 kU/L (Class IV); Cladosporium herbarum IgE <0.10 kU/L (Class 0); Cockroach IgE 3.14 kU/L (Class III); Cottonwood IgE 5.08 kU/L (Class IV); D farinae IgE 0.54 kU/L (Class I); D pteronyssinus IgE <0.10 kU/L (Class 0); Dog Dander IgE 0.21 kU/L (Class 0/I); Elm Tree IgE 5.45 kU/L (Class IV); Immunoglobulin E 86 IU/mL (6-495); Mountain Cedar IgE 4.01 kU/L (Class IV); Mouse Urine Proteins IgE <0.10 kU/L (Class 0); Nettle IgE 4.85 kU/L (Class IV); Oak Tree IgE 5.68 kU/L (Class IV); Penicillium chrysogen IgE <0.10 kU/L (Class 0); Pigweed, Common IgE 5.18 kU/L (Class IV); Sheep Sorrel IgE 6.04 kU/L (Class IV); Timothy Grass IgE 6.28 kU/L (Class IV); Walnut Allery IgE 5.36 kU/L (Class IV); White ash IgE 6.04 kU/L (Class IV)
[2022-06-10 12:26] LABS: Cat Dander IgE <0.10
== END ==
PROVIDERS: Family Provider Registered Nurse Diabetes Educator; PCP Registered Nurse Diabetes Educator; Referring Provider Registered Nurse Diabetes Educator; Visit Provider Registered Nurse Diabetes Educator
DX: R05.3 Chronic cough (principal); Z77.120 Contact with and (suspected) exposure to mold (toxic); Z91.018 Allergy to other foods
CPT/HCPCS: 36415; 82785; 86003

== ENCOUNTER → 2022-07-02 06:41 | Outpatient (CLI) | payer OTHER, MEDICAID, SELFPAY ==
--- NOTE | 2022-07-02 06:42 | DI.US.S_ITS ---
PROCEDURE: US EXTREMITY NONVASC LOWER LT INDICATIONS: eval L posterior calf mass TECHNIQUE: Real-time scanning was performed of the left calf, with image documentation. COMPARISON: [facility], US, US EXTREMELY NONVAS UPPER RT, 11/15/2021, 10:55. FINDINGS: Focused ultrasound examination of left posterior calf region shows no discrete soft tissue mass or fluid collection. IMPRESSION: No abnormality is seen in left posterior calf region at patient's reported area of palpable lump. Dictated by: Adam Yu M.D. on 07/02/2022 at 8:29 Approved by: Adam Yu M.D. on 07/02/2022 at 8:33
== END ==
PROVIDERS: Family Provider Registered Nurse Diabetes Educator; PCP Registered Nurse Diabetes Educator; Referring Provider Registered Nurse Diabetes Educator; Visit Provider Registered Nurse Diabetes Educator
DX: R22.42 Localized swelling, mass and lump, left lower limb (principal)
CPT/HCPCS: 76882

== ENCOUNTER → 2022-11-20 07:30 | Outpatient (CLI) | payer OTHER, MEDICAID, SELFPAY ==
--- NOTE | 2022-11-20 | DI.MG.S_ITS ---
BILATERAL DIGITAL SCREENING MAMMOGRAM 3D/2D WITH CAD: 11/20/2022 CLINICAL: Routine screening. Family history of breast cancer. Comparison is made to exams dated: 11/15/2021 mammogram, 08/22/2020 mammogram, 09/24/2019 mammogram, and 09/06/2019 mammogram - [facility]. Both breasts are heterogeneously dense, which may obscure small masses (category c / 51-75% glandular tissue). Current study was also evaluated with a Computer Aided Detection (CAD) system. No significant masses, calcifications, or other findings are seen in either breast. There has been no significant interval change. IMPRESSION: NEGATIVE There is no mammographic evidence of malignancy. A 1 year screening mammogram is recommended. Based on the Tyrer Cuzick model (a risk assessment model) the patient's lifetime risk is 18.6% and her 10 year risk is 3.3%. According to the ACR, ACS, and NCCN guidelines, an annual breast MRI exam along with mammogram is recommended if the patient's lifetime risk is 20% or greater. This exam was interpreted at Station ID: [id number]. NOTE: For mammograms, a report in lay terms will be sent to the patient. Approximately 15% of breast malignancies will not be visualized mammographically. In the management of a palpable breast mass, a negative mammogram must not discourage biopsy of a clinically suspicious lesion. Electronically Signed By: Cayden butler/mc:11/20/2022 14:43:19 letter sent: Normal Exam ACR BI-RADS Category 1: Negative 3341F
== END ==
PROVIDERS: Family Provider Registered Nurse Diabetes Educator; PCP Registered Nurse Diabetes Educator; Referring Provider Registered Nurse Diabetes Educator; Visit Provider Registered Nurse Diabetes Educator
DX: Z12.31 Encounter for screening mammogram for malignant neoplasm of breast (principal); Z80.3 Family history of malignant neoplasm of breast
CPT/HCPCS: 77063; 77067

== ENCOUNTER → 2023-03-19 11:54 | Outpatient (CLI) | payer OTHER, MEDICAID, SELFPAY | PROVIDERS: Family Provider Registered Nurse Diabetes Educator; PCP Registered Nurse Diabetes Educator; Visit Provider Registered Nurse Diabetes Educator | DX: N89.8 Other specified noninflammatory disorders of vagina (principal); R52 Pain, unspecified | CPT/HCPCS: 87210 ==

== ENCOUNTER → 2025-04-26 13:15 | Outpatient (CLI) | payer OTHER, SELFPAY ==
[2025-04-26 15:08] LABS: MRSA (Nasal) PCR NOT DETECTED (Not Detect)
== END ==
PROVIDERS: Family Provider Registered Nurse Diabetes Educator; PCP Registered Nurse Diabetes Educator; Visit Provider Physician Assistant
DX: J32.9 Chronic sinusitis, unspecified (principal); J34.89 Other specified disorders of nose and nasal sinuses; Z20.818 Contact with and (suspected) exposure to other bacterial communicable diseases
CPT/HCPCS: 87070; 87102; 87797

== ENCOUNTER → 2025-05-13 15:38 | Outpatient (CLI) | payer OTHER, SELFPAY ==
--- NOTE | 2025-05-13 15:39 | DI.CT.S_ITS ---
PROCEDURE: CT SINUS SCREEN WO CON
== END ==
LOC: CT 15:38
PROVIDERS: Family Provider Registered Nurse Diabetes Educator; PCP Registered Nurse Diabetes Educator; Referring Provider Physician Assistant; Visit Provider Physician Assistant
DX: J32.9 Chronic sinusitis, unspecified (principal)
CPT/HCPCS: 70486